=== PATIENT | male | born 1990 | race Caucasian/White ===

== ENCOUNTER 2017-01-09 08:21 | Emergency (ER) | payer OTHER ==
[2017-01-09 08:31] VITALS: BP 138/82
[2017-01-09] MEDS ORDERED: Bacitracin/Neomycin/Polymyxin B Oint 0.9 GM U/D Packet TOP ONE (09:45)
[2017-01-09] MEDS ORDERED: Diphtheria,Pertussis(Acell),Tetanus Vaccine 0.5 ML SDV IM ONE (10:14)
--- NOTE | 2017-01-09 10:20 | EDM.PDOC ---
ED HPI GENERAL MEDICAL PROBLEM - General Chief Complaint: Upper Extremity Injury/Pain Stated Complaint: left pointer finger crushed Time Seen by Provider: 01/09/17 08:45 Source of Information: Reports: Patient History Limitations: Reports: No Limitations - History of Present Illness INITIAL COMMENTS - FREE TEXT/NARRATIVE: The patient presents with a crush injury and pain of left index finger distal phalynx. He reports it got caught between gears at work. He has a small abrasion just under the nail dorsally an a small abrasion ventrally. He is unable to bed the DIP joint secondary to pain. He denies other injuries or complaints. He does not recall the date of his last tetanus vaccination. Left 2-Index finger Pain Score (Numeric/FACES): 8 - Related Data Allergies Allergy/AdvReac Type Severity Reaction Status Date / Time No Known Allergies Allergy Verified 01/09/17 08:50 Home Meds: Home Meds . [No Known Home Meds] 01/09/17 [History] Past Medical History - Infectious Disease History Infectious Disease History: Reports: Chicken Pox - Past Surgical History GI Surgical History: Reports: Hernia Repair/Other, Other (See Below) Other GI Surgeries/Procedures: umbilical hernia repair Social & Family History - Tobacco Use Smoking Status *Q: Never Smoker Second Hand Smoke Exposure: No - Caffeine Use Caffeine Use: Reports: None - Recreational Drug Use Recreational Drug Use: No Review of Systems - Review of Systems Review Of Systems: See Below ED EXAM, GENERAL - Physical Exam Exam: See Below Exam Limited By: No Limitations General Appearance: Alert, WD/WN, No Apparent Distress Eye Exam: Bilateral Eye: EOMI, Normal Inspection, PERRL Ears: Normal External Exam, Normal Canal, Hearing Grossly Normal, Normal TMs Ear Exam: Bilateral Ear: Auricle Normal, Canal Normal, TM normal Nose: Normal Inspection, Normal Mucosa, No Blood Throat/Mouth: Normal Inspection, Normal Lips, Normal Teeth, Normal Gums, Normal Oropharynx Head: Atraumatic, Normocephalic Neck: Normal Inspection, Supple, Non-Tender, Full Range of Motion Respiratory/Chest: No Respiratory Distress, Lungs Clear, Normal Breath Sounds Cardiovascular: Normal Peripheral Pulses, Regular Rate, Rhythm, No Edema, No Gallop, No Murmur, No Rub Peripheral Pulses: 2+: Radial (L), Radial (R) GI/Abdominal: Normal Bowel Sounds, Soft, Non-Tender, No Organomegaly, No Distention Back Exam: Normal Inspection, Full Range of Motion. No: CVA Tenderness (L), CVA Tenderness (R), Paraspinal Tenderness, Vertebral Tenderness Extremities: Normal Inspection, Normal Range of Motion, Non-Tender, No Pedal Edema, Normal Capillary Refill Neurological: Alert, Oriented, CN II-XII Intact, Normal Cognition, Normal Gait, Normal Reflexes, No Motor/Sensory Deficits Psychiatric: Normal Affect, Normal Mood Skin Exam: Warm, Dry, Intact, Normal Color, No Rash Lymphatic: No Adenopathy Course - Vital Signs Last Recorded V/S: Last Vital Signs Temp 36.8 C 01/09/17 08:24 Pulse 90 01/09/17 08:24 Resp 16 01/09/17 08:24 BP 138/82 01/09/17 08:24 Pulse Ox 98 01/09/17 08:24 - Orders/Labs/Meds Orders: Active Orders 24 hr Category Date Time Status Vaccines to be Administered [RC] PER UNIT ROUTINE Care 01/09/17 10:14 Ordered Hand 2V Lt [CR] Stat Exams 01/09/17 08:34 Taken Diphth,Pertuss(Acell),Tet Vac [Adacel] Med 01/09/17 10:14 Once 0.5 ml IM .ONCE ONE Meds: Medications Discontinued Medications Generic Name Dose Route Start Last Admin Trade Name Gildardoq PRN Reason Stop Dose Admin Neomycin/Polymyxin/Bacitracin 1 each 01/09/17 09:45 01/09/17 09:53 Triple Antibiotic Oint TOP 01/09/17 09:46 1 each ONETIME ONE Administration Departure - Departure Time of Disposition: 10:26 Disposition: Home, Self-Care 01 Clinical Impression: Fracture of distal phalanx of index finger Qualifiers: Encounter type: initial encounter Fracture type: closed Fracture alignment: nondisplaced Laterality: left Qualified Code(s): S62.661A - Nondisplaced fracture of distal phalanx of left index finger, initial encounter for closed fracture Crushing injury of left index finger, initial encounter Qualifiers: Encounter type: initial encounter Qualified Code(s): S67.191A - Crushing injury of left index finger, initial encounter Abrasion of left index finger Qualifiers: Encounter type: initial encounter Qualified Code(s): S60.411A - Abrasion of left index finger, initial encounter - Discharge Information Forms: ED Department Discharge - My Orders Last 24 Hours: My Active Orders 01/09/17 08:34 Hand 2V Lt [CR] Stat 01/09/17 10:14 Vaccines to be Administered [RC] PER UNIT ROUTINE Diphth,Pertuss(Acell),Tet Vac [Adacel] 0.5 ml IM .ONCE ONE - Assessment/Plan Last 24 Hours: My Active Orders 01/09/17 08:34 Hand 2V Lt [CR] Stat 01/09/17 10:14 Vaccines to be Administered [RC] PER UNIT ROUTINE Diphth,Pertuss(Acell),Tet Vac [Adacel] 0.5 ml IM .ONCE ONE Assessment:: Nondisplaced fracture of proximal aspect of distal phalynx of left index finger. Crush injury of distal phalynx of left index finger. Mild abrasions of distal phalynx of left index finger. Plan: 1. Wound soaked in 2:1 Saline to Betadine solution. 2. Wound cleansed with Betadine and anesthetized in local pattern with 27-gauge 1/2" needle with 1% lidocaine without epinephrine to total of 5 mL. 3. Suture closure performed using 4-0 Ethilon in interrupted fashion. 4. Triple antibiotic ointment applied followed by sterile dressing and covered with Telfa and Kerlix wrap. 5. Keep dressing covered and in place for 24 hours, then may remove and shower and clean with mild soap but do not soak until sutures removed. 6. OTC ibuprofen 400-600 mg every 6 hours as needed for discomfort. 7. Excuse from work 01/09/2017, may return 01/10/2017 with 5 pound lifting restriction of right hand until sutures removed. 8. Return to clinic in 7 days for suture removal or follow up with PCP sooner if increased redness, swelling, pain, drainage, or other concerns.
== END 2017-01-09 10:55 | disposition home or self-care (01) ==
LOC: LL.ED 08:21
DX: S62.661A Nondisplaced fracture of distal phalanx of left index finger, initial encounter for closed fracture (principal); S60.411A Abrasion of left index finger, initial encounter; Z23 Encounter for immunization; Z98.890 Other specified postprocedural states; W23.0XXA Caught, crushed, jammed, or pinched between moving objects, initial encounter; Y92.69 Other specified industrial and construction area as the place of occurrence of the external cause; Y99.0 Civilian activity done for income or pay
CPT/HCPCS: 12001; 73120-LT; 90471; 90715; 99283

== ENCOUNTER 2019-10-03 09:44 | Emergency (ER) | payer BC, OTHER ==
[2019-10-03 10:05] VITALS: BP 111/75; PULSE 95
--- NOTE | 2019-10-03 10:16 | EDM.PDOC ---
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 - Related Data Allergies Allergy/AdvReac Type Severity Reaction Status Date / Time No Known Allergies Allergy Verified 01/09/17 08:50 Home Meds: Home Meds glipiZIDE [Glipizide ER] 5 mg PO BEDTIME 02/28/18 [History] metFORMIN HCl [Metformin HCl ER] 500 mg PO BID 02/28/18 [History] Past Medical History Endocrine/Metabolic History: Reports: Diabetes, Type I - Infectious Disease History Infectious Disease History: Reports: Chicken Pox - Past Surgical History HEENT Surgical History: Reports: Oral Surgery GI Surgical History: Reports: Hernia Repair/Other, Other (See Below) Other GI Surgeries/Procedures: umbilical hernia repair Social & Family History - Caffeine Use Caffeine Use: Reports: None Review of Systems - Review of Systems Review Of Systems: See Below Respiratory: Reports: No Symptoms Cardiovascular: Reports: No Symptoms GI/Abdominal: Reports: No Symptoms Musculoskeletal: Reports: Leg Pain, Joint Pain Skin: Reports: Wound ED EXAM, GENERAL - Physical Exam Exam: See Below Exam Limited By: No Limitations General Appearance: Alert, WD/WN, Moderate Distress Head: Atraumatic Neck: Supple Respiratory/Chest: Lungs Clear Cardiovascular: Regular Rate, Rhythm GI/Abdominal: Non-Tender Extremities: Other (Left mid-thigh tender Minimal swelling No ecchymosis Left lower leg with abrasion laterally below knee Knee tender with palpation No swelling or deformity Abrasion behind right knee) Neurological: Alert, Oriented Course - Vital Signs Last Recorded V/S: Last Vital Signs Temp 98.3 F 10/03/19 10:05 Pulse 95 10/03/19 10:05 Resp 16 10/03/19 10:05 BP 111/75 10/03/19 10:05 Pulse Ox 95 10/03/19 10:05 - Orders/Labs/Meds Orders: Active Orders 24 hr Category Date Time Status Femur Min 2V Lt [CR] Stat Exams 10/03/19 09:48 Taken - Re-Assessments/Exams Free Text/Narrative Re-Assessment/Exam: 10/03/19 10:17 Pt xray without acute findings Pt placed in immobilizer Departure - Departure Time of Disposition: 10:30 Disposition: Home, Self-Care 01 Clinical Impression: Contusion of leg, left Qualifiers: Encounter type: initial encounter Qualified Code(s): S80.12XA - Contusion of left lower leg, initial encounter Knee pain, left Qualifiers: Chronicity: acute Qualified Code(s): M25.562 - Pain in left knee Abrasion hip/leg Qualifiers: Encounter type: initial encounter Laterality: unspecified laterality Qualified Code(s): S80.819A - Abrasion, unspecified lower leg, initial encounter - Discharge Information *PRESCRIPTION DRUG MONITORING PROGRAM REVIEWED*: Not Applicable *COPY OF PRESCRIPTION DRUG MONITORING REPORT IN PATIENT FERNANDO: Not Applicable Instructions: Contusion, [id number], Crutch Use, Adult, [id number], Abrasion Referrals: PCP,Unknown [Primary Care Provider] - Additional Instructions: Ice as needed Wear immobilizer and use crutches Follow up in clinic in 1-2 days Elevate leg Rx Tramadol 50 mg every 6 hours for pain Sepsis Event Note - Evaluation Sepsis Screening Result: No Definite Risk - Focused Exam Vital Signs: Vital Signs Temp Temp Pulse Resp BP Pulse Ox 10/03/19 10:05 98.3 F 95 16 111/75 95 10/03/19 10:02 98.3 F 95 16 111/75 96 Date Exam was Performed: 10/03/19 Time Exam was Performed: 10:10 - My Orders Last 24 Hours: My Active Orders 10/03/19 09:48 Femur Min 2V Lt [CR] Stat - Assessment/Plan Last 24 Hours: My Active Orders 10/03/19 09:48 Femur Min 2V Lt [CR] Stat
== END 2019-10-03 11:10 | disposition home or self-care (01) ==
LOC: LL.ED 09:44
DX: S70.12XA Contusion of left thigh, initial encounter (principal); S80.212A Abrasion, left knee, initial encounter; S80.211A Abrasion, right knee, initial encounter; E10.9 Type 1 diabetes mellitus without complications; Z79.84 Long term (current) use of oral hypoglycemic drugs; W23.1XXA Caught, crushed, jammed, or pinched between stationary objects, initial encounter; Y99.0 Civilian activity done for income or pay
CPT/HCPCS: 99283

== ENCOUNTER 2020-12-06 10:13 | Inpatient (IN) | payer BC ==
--- NOTE | 2020-12-06 10:24 | EDM.PDOC ---
ED HPI GENERAL MEDICAL PROBLEM - General Chief Complaint: Diabetic Complaint Stated Complaint: Diabetic issue Time Seen by Provider: 12/06/20 10:20 Source of Information: Reports: Patient, Old Records ([facility] chart/EMR) - History of Present Illness INITIAL COMMENTS - FREE TEXT/NARRATIVE: The patient was brought to the emergency room via private automobile by his significant other for evaluation of nonspecific blurred vision associated with some anorexia and nausea with the patient not able to drink water, although he has been able to keep some sports drinks down during the last few days. He denies any specific pain or discomfort. The patient has had financial issues and has not been able to afford his insulin recently and has not had any insulin for about 6 days and previously did cut down on his former insulin regimen. He has also noted some dysuria and polyuria with no gross hematuria, colic, etc.. No recent history of abdominal pain, heartburn, emesis, diarrhea, melena, gross hematochezia, or any food intolerance, including fatty foods, etc., although some constipation secondary to his recent anorexia with last bowel movement about 3 days ago. The patient denies any chest pain/pressure, heart flutter, dizziness, orthostasis, orthopnea, diaphoresis, paresthesias, recent decreased exercise tolerance, or any other anginal-type symptoms. The patient also denies any recent fever, cough, wheezing, etc., although some nonspecific dyspnea during the last couple of days. No history of recent headaches, diplopia, change in mental status, or other change in neurological status. The patient has also run out of his Accu-Chek strips during the last week. Onset: Gradual Onset Date: 12/04/20 Duration: Getting Worse Location: Reports: Other (No pain) Quality: Reports: Same as Previous Episode Severity: Moderate Improves with: Reports: None Worsens with: Reports: None Context: Reports: Other (As above). Denies: Sick Contact, Trauma Associated Symptoms: Reports: Loss of Appetite, Nausea/Vomiting (No emesis), Shortness of Breath. 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 Denies: Allergic Rhinitis, Cataract, Glaucoma, Hard of Hearing, Impaired Vision, Macular Degeneration, Otitis Media, Retinal Detachment, Sinusitis Other HEENT History: No diabetic retinopathy. Cardiovascular History: Reports: Other (See Below). Denies: Afib, Aneurysm, Arrhythmia, Blood Clots/VTE/DVT, CAD, Cardiomyopathy, Heart Failure, Heart Murmur, High Cholesterol, Hypertension, HI, PVD, Syncope Other Cardiovascular History: The patient does not know his cholesterol status. Respiratory History: Reports: Bronchitis, Recurrent, Other (See Below). Denies: Asthma, COPD, Intubation, Difficult, Intubation, Previous, PE, Pneumonia, Recurrent, Pneumothorax, Pulmonary Fibrosis, Sleep Apnea, TB Other Respiratory History: Possible history of RSV infection with respiratory distress/apnea at about age 1. Gastrointestinal History: Reports: Fatty Liver, Gastritis, GERD, Other (See Below). Denies: Celiac Disease, Cholelithiasis, Chronic Constipation, Chronic Diarrhea, Colon Polyp, Fecal Incontinence, GI Bleed, Hepatitis, Hiatal Hernia, Inflammatory Bowel Disease, Irritable Bowel Syndrome, Jaundice, Pancreatitis, PUD Other Gastrointestinal History: History of borderline GERD by medical records, which patient denies. Genitourinary History: Reports: None. Denies: Acute Renal Failure, Chronic Renal Insuffiency, Diabetic Nephropathy, Renal Calculus, Retention, Urinary, STD, Urinary Incontinence, UTI, Recurrent Musculoskeletal History: Reports: Fracture, Other (See Below). Denies: Amputation, Arthritis, Back Pain, Chronic, Gout, Neck Pain, Chronic, Osteoarthritis, RA, SLE Other Musculoskeletal History: Proximal fracture of the distal phalanx of digit #2 of the left hand on 01/09/2017. Neurological History: Denies: Cerebral Aneurysms, Concussion, Headaches, Chronic, Head Trauma, Migraines, MS, Neuropathy, Diabetic, Neuropathy, Peripheral, Parkinson's, Seizure, TIA, Vertigo Psychiatric History: Reports: None. Denies: Abuse, Victim of, ADD, ADHD, Addiction, Anxiety, Depression, Psych Hospitalization(s), PTSD, Suicide Attempt, Suicidal Ideation Endocrine/Metabolic History: Reports: Diabetes, Type I, IDDM, Other (See Below). 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 Hematologic History: Denies: Anemia, Blood Transfusion(s), Iron Deficiency Immunologic History: Denies: None, AIDS, HIV, SLE Oncologic (Cancer) History: Reports: None. Denies: Basal Cell Carcinoma, Colon, Hodgkin's Lymphoma, Leukemia, Lymphoma, Malignant Melanoma, Non-Hodgkin's Lymphoma, Ovarian, Prostate, Squamous Cell Carcinoma Dermatologic History: Reports: None. Denies: Eczema, Melanoma - Infectious Disease History Infectious Disease History: Reports: Chicken Pox, RSV (At age 1 as above?). Denies: C-Difficile, Measles, Meningitis, Mononucleosis, MRSA, Mumps, Novel Coronavirus, Pertussis (Whooping Cough), Rheumatic Fever, Rubella, Scarlet Fever, Shingles, TB, VRE - Past Surgical History Head Surgeries/Procedures: Reports: None HEENT Surgical History: Reports: Oral Surgery, Other (See Below). Denies: Adenoidectomy, Cataract Surgery, Eye Surgery, Laser Surgery, LASIK, Myringotomy w Tube(s), Naso-Sinus Surgery Other HEENT Surgeries/Procedures: [place] teeth extraction x4 in his 20s. Cardiovascular Surgical History: Reports: None. Denies: Varicose Respiratory Surgical History: Reports: None. Denies: Thoracentesis GI Surgical History: Reports: Hernia Repair/Other, Other (See Below). Denies: Appendectomy, Cholecystectomy, Colonoscopy, EGD, Hernia, Abdominal, Hernia, Inguinal, Polypectomy Other GI Surgeries/Procedures: Umbilical hernia repair on 01/30/2011. Male Surgical History: Reports: Circumcision, Other (See Below). Denies: Vasectomy Other Male Surgeries/Procedures: Circumcision as an infant. Endocrine Surgical History: Reports: None. Denies: Thyroid Biopsy Neurological Surgical History: Reports: None. Denies: C-Spine, Discectomy, Laminectomy, Lumbar Spine, Sacral Spine, Spinal Fusion, Thoracic Spine, Vertebroplasty Musculoskeletal Surgical History: Reports: None. Denies: Arthroscopic Procedure, Carpal Tunnel, Ganglion Cyst, Joint Replacement, ORIF, Shoulder Surgery Oncologic Surgical History: Reports: None Dermatological Surgical History: Reports: None - Past Imaging History Past Imaging History: Reports: CAT Scan (Abdomen and pelvis 03/09/2018.), MRI (Left thigh on 10/10/2019.), Ultrasound (Abdomen 11/09/17.), Upper GI X-Ray/Series Social & Family History - Family History HEENT: Reports: None. Denies: Glaucoma, Macular Degeneration, Retinal Detachment Cardiac: Reports: Arrhythmia, Heart Murmur, Other (See Below). Denies: Afib, Aneurysm, Blood Clots/VTE/DVT, Bypass, CAD, Heart Failure, High Cholesterol, Hypertension, HI, Pacemaker, PVD/COD, Stent, Syncope Other Cardiac Family History: Maternal grandmother with heart valve replacement. Father with unknown type of arrhythmia. Respiratory: Reports: Sleep Apnea, Other (See Below). Denies: Asthma, COPD, PE, Pneumothorax Other Respiratory Family Hisory: Father with sleep apnea secondary to obesity. GI: Reports: None. Denies: Celiac Disease, Cholelithiasis, Colon Polyps, GERD, GI bleed, Inflammatory Bowel Disease, Irritable Bowel Syndrome : Reports: None. Denies: Renal Calculus, UTI, Recurrent OBGYN: Reports: None. Denies: Endometriosis, Recurrent Spontaneous Musculoskeletal: Reports: None. Denies: Arthritis, Gout, Osteoarthritis, RA, SLE Neurological: Reports: None. Denies: Alzheimers Disease, CVA, Migraines, MS, Neuropathy, Peripheral, Parkinson's, Seizure, TIA Psychiatric: Reports: None. Denies: Abuse, Victim of, ADD, ADHD, Anxiety, Depression, Psych Hospitalization(s), Psychosis, PTSD, Suicide Attempt Endocrine/Metabolic: Reports: Diabetes, type II, Obesity/MBI 30+, Other (See Below). Denies: Diabetes, Gestational, Diabetes, Type I, Diabetes Mellitus, Type 3c, IDDM Other Endocrine/Metabolic Family History: Father with AODM and obesity. Paternal grandmother with AODM. Hematologic: Reports: None. Denies: Anemia, SLE Immunologic: Reports: None. Denies: AIDS, HIV, SLE Dermatologic: Reports: None. Denies: Eczema, Psoriasis Oncologic: Reports: Other (See Below) Other Oncologic Family History: Maternal grandparents with unknown type of fatal cancer in their 80s. - Caffeine Use Caffeine Use: Reports: None Other Caffeine Use: 1-2 daily ED ROS GENERAL - Review of Systems Review Of Systems: Comprehensive ROS is negative, except as noted in HPI. ED EXAM GENERAL NO PERIP PULSE - Physical Exam Exam: See Below Exam Limited By: No Limitations General Appearance: Alert, WD/WN, No Apparent Distress, Anxious (Moderate) Eye Exam: Bilateral Eye: EOMI, Normal Fundi (No vertigo or nystagmus), PERRL Ears: Normal External Exam, Normal Canal, Hearing Grossly Normal, Normal TMs Nose: Normal Inspection, Normal Mucosa, No Blood Throat/Mouth: Normal Lips, Normal Teeth, Normal Gums, No Airway Compromise. No: Normal Oropharynx (Dry oral mucosa. +1 erythema in the posterior pharynx with no pinpoint of peritonsillar abscess), Normal Voice, Dysphagia, Inflammation, Perioral Cyanosis Head: Atraumatic, Normocephalic. No: Facial Swelling, Facial Tenderness, Sinus Tenderness Neck: Normal Inspection, Supple, Non-Tender, Full Range of Motion. No: Carotid Bruit, Lymphadenopathy (L), Lymphadenopathy (R), Thyromegaly Respiratory/Chest: No Respiratory Distress, Lungs Clear, Normal Breath Sounds, No Accessory Muscle Use, Chest Non-Tender. No: Pleural Rub, Retractions Cardiovascular: Normal Peripheral Pulses, No Edema, No Gallop, No JVD, No Murmur, No Rub, Tachycardia (Regular rhythm). No: Gallop/S3, Gallop/S4, Friction Rub GI/Abdominal: Normal Bowel Sounds, Soft, Non-Tender, No Organomegaly, No Distention, No Abnormal Bruit, No Mass, Pelvis Stable. No: Guarding (Male) Exam: Deferred Rectal (Males) Exam: Deferred Back Exam: Normal Inspection, Full Range of Motion. No: CVA Tenderness (L), CVA Tenderness (R), Muscle Spasm Extremities: Normal Inspection, Normal Range of Motion, Non-Tender, No Pedal Edema, Normal Capillary Refill. No: Tan's Sign Neurological: Alert, Oriented, CN II-XII Intact, Normal Cognition, Normal Gait, Normal Reflexes (Negative Babinski's), No Motor/Sensory Deficits Psychiatric: Anxious (Moderate), Depressed Mood (Mild) Skin Exam: Warm, Dry, Intact, Normal Color, No Rash, Wound/Incision (Slowly improving by history 1 cm second-degree burn over the mid radial aspect of the right forearm with no local signs of infection), Other (Turgor good). No: Diaphoretic, Jaundice, Tattoo(s) Lymphatic: No Adenopathy #1 Interpretation EKG Date: 12/06/20 Time: 10:54 Rhythm: NSR Rate (Beats/Min): 93 [place]: Normal (Neutral) P-Wave: Present QRS: Normal (0.09 seconds) ST-T: Normal (T wave inversion in lead V1 with noisy baseline) QT: Normal VA/PQ Interval: 0.13 seconds representing a short VA interval with no delta waves noted. Comparison: NA - No Prior EKG EKG Interpretation Comments: 1. No acute ischemic changes 2. Short VA interval Course - Vital Signs Last Recorded V/S: Last Vital Signs Temp 36.2 C 12/06/20 10:23 Pulse 102 H 12/06/20 12:29 Resp 24 H 12/06/20 12:29 BP 138/74 12/06/20 12:29 Pulse Ox 100 12/06/20 12:29 Vital Signs - 24 hr 12/06/20 12/06/20 12/06/20 10:18 10:23 10:28 Temperature [ 36.7 C 36.2 C Temporal] Pulse, 109 H 98 Peripheral [ Pulse Oximetry] Respiratory 20 Rate Blood Pressure 126/67 [Left Arm] Blood Pressure 134/67 [Right Upper Arm] O2 Sat by Pulse 100 100 Oximetry 12/06/20 12/06/20 12/06/20 10:32 10:47 11:02 Temperature [ Temporal] Pulse, 94 101 H 109 H Peripheral [ Pulse Oximetry] Respiratory 22 H 23 H Rate Blood Pressure [Left Arm] Blood Pressure 111/70 137/62 132/82 [Right Upper Arm] O2 Sat by Pulse 100 100 100 Oximetry 12/06/20 12/06/20 12/06/20 11:17 11:32 12:00 Temperature [ Temporal] Pulse, 101 H 104 H 102 H Peripheral [ Pulse Oximetry] Respiratory 22 H 25 H 24 H Rate Blood Pressure [Left Arm] Blood Pressure 128/89 118/85 127/74 [Right Upper Arm] O2 Sat by Pulse 100 100 100 Oximetry 12/06/20 12:10 Temperature [ Temporal] Pulse, 101 H Peripheral [ Pulse Oximetry] Respiratory 23 H Rate Blood Pressure [Left Arm] Blood Pressure [Right Upper Arm] O2 Sat by Pulse 100 Oximetry - Orders/Labs/Meds Orders: Active Orders 24 hr Category Date Time Status Cardiac Monitoring [RC] . DIRECTED Care 12/06/20 10:24 Active EKG Documentation Completion [RC] ASDIRECTED Care 12/06/20 10:24 Active Oxygen Therapy, ED [RC] PRN Care 12/06/20 10:24 Active Peripheral IV Care [RC] . DIRECTED Care 12/06/20 10:24 Active Peripheral IV Care [RC] . DIRECTED Care 12/06/20 11:26 Active Pulse Oximetry [RC] CONTINUOUS Care 12/06/20 10:24 Active Up With Assistance [RC] PFP Care 12/06/20 10:24 Active Vital Signs [RC] PFP Care 12/06/20 10:24 Active Nothing per Oral Now Diet [DIET] Diet 12/06/20 Breakfast Active Abdomen Series w Chest 1V [CR] Routine Exams 12/06/20 10:28 Taken CORONAVIRUS COVID-19 DARIUSZ [MOLEC] Stat Lab 12/06/20 11:00 Received CULTURE BLOOD [BC] Stat Lab 12/06/20 12:00 Received CULTURE BLOOD [BC] Stat Lab 12/06/20 12:10 Received CULTURE STREP A CONFIRMATION [RM] Stat Lab 12/06/20 10:30 Results CULTURE URINE [RM] Routine Lab 12/06/20 10:55 Received STREP SCRN A RAPID W CULT CONF [RM] Stat Lab 12/06/20 10:30 Results Dextrose 50% in Water Med 12/06/20 11:26 Active 50 ml IV ASDIRECTED PRN Glucagon,Human Recombinant [GlucaGen] Med 12/06/20 11:26 Active 1 mg IM ASDIRECTED PRN Insulin Regular, Human [HumuLIN R] 100 unit Med 12/06/20 11:30 Active Sodium Chloride 0.9% [Normal Saline] 99 ml IV TITRATE Sodium Chloride 0.9% [Saline Flush] Med 12/06/20 10:24 Active 10 ml FLUSH ASDIRECTED PRN Sodium Chloride 0.9% [Saline Flush] Med 12/06/20 11:26 Active 10 ml FLUSH ASDIRECTED PRN Blood Culture x2 Reflex Set [OM.PC] Urgent Oth 12/06/20 11:46 Ordered Isolation [COMM] Routine Oth 12/06/20 10:27 Active Obtain Past Medical Record [OM.PC] Urgent Oth 12/06/20 10:24 Active Peripheral IV Insertion Adult [OM.PC] Stat Oth 12/06/20 10:24 Ordered Peripheral IV Insertion Adult [OM.PC] Stat Ot 12/06/20 11:26 Ordered Resuscitation Status Stat Resus Stat 12/06/20 10:24 Ordered EKG 12 Lead [EK] Stat Ther 12/06/20 10:24 Ordered Medication Orders Dextrose/Water (50% Dextrose In Water 50 Ml Syringe) 50 ml IV ASDIRECTED PRN PRN Reason: Hypoglycemia Glucagon (Glucagon,Human Recombinant 1 Mg Vial) 1 mg IM ASDIRECTED PRN PRN Reason: Hypoglycemia Insulin Human Regular 100 unit (/ Sodium Chloride) 100 mls @ 8.029 mls/hr IV TITRATE RAMIRO; Protocol Last Admin: 12/06/20 12:06 Dose: 0.1 units/kg/hr, 8.029 mls/hr Documented by: KHOA Cosigned by: LEO Lactated Ringer's (Ringers, Lactated) 1,000 mls @ 999 mls/hr IV .BOLUS ONE Stop: 12/06/20 13:21 Last Admin: 12/06/20 12:25 Dose: 999 mls/hr Documented by: KHOA Sodium Chloride (Sodium Chloride 0.9% 10 Ml Syringe) 10 ml FLUSH ASDIRECTED PRN PRN Reason: Keep Vein Open Last Admin: 12/06/20 11:32 Dose: 10 ml Documented by: Admin: 12/06/20 10:50 Dose: 10 ml Documented by: KHOA Sodium Chloride (Sodium Chloride 0.9% 10 Ml Syringe) 10 ml FLUSH ASDIRECTED PRN PRN Reason: Keep Vein Open Labs: Laboratory Tests 12/06/20 12/06/20 12/06/20 Range/Units 10:17 10:40 10:40 WBC 16.9 H (4.0-10.2) K/uL RBC 6.03 H (4.33-5.41) M/uL Hgb 17.7 H D (13.1-16.8) g/dL Hct 47.8 (39.0-49.0) % MCV 79.3 L (84.0-98.0) fL MCH 29.4 (28.2-33.3) pg MCHC 37.0 H (31.7-36.0) g/dL RDW 13.7 (11.2-14.1) % Plt Count 341 D (150-350) K/uL Neut % (Auto) 89.6 H (45.0-80.0) % Lymph % (Auto) 6.8 L (10.0-50.0) % [place] % (Auto) 3.3 (2.0-14.0) % Eos % (Auto) 0.1 (0.0-5.0) % Baso % (Auto) 0.2 (0.0-2.0) % Neut # (Auto) 15.10 H (1.40-7.00) K/uL Lymph # (Auto) 1.14 (0.50-3.50) K/uL [place] # (Auto) 0.56 (0.00-1.00) K/uL Eos # (Auto) 0.01 (0.00-0.50) K/uL Baso # (Auto) 0.04 (0.00-0.20) K/uL PT 9.4 L (9.5-12.0) SEC INR 0.9 APTT 26.4 (24.5-32.8) SEC D-Dimer, Quantitative (0-400) ng/mL Sodium (136-145) mmol/L Potassium (3.5-5.1) mmol/L Chloride (98-107) mmol/L Carbon Dioxide (21.0-32.0) mmol/L BUN (7-18) mg/dL Creatinine (0.51-1.17) mg/dL Est Cr Clr Drug Dosing Estimated GFR (MDRD) mL/min Glucose (70-99) mg/dL POC Glucose 452 H* (70-99) mg/dL Hemoglobin A1c (4.3-5.7) % Lactic Acid (0.4-2.0) mmol/L Uric Acid (2.6-7.2) mg/dL Calcium (8.5-10.1) mg/dL Phosphorus (2.6-4.7) mg/dL Magnesium (1.8-2.4) mg/dL Total Bilirubin (0.2-1.0) mg/dL AST (15-37) U/L ALT (12-78) U/L Alkaline Phosphatase (46-116) IU/L Creatine Kinase (26-308) U/L Creatine Kinase Index (0.0-2.5) % CK-MB (CK-2) (0.00-3.60) ng/mL Troponin I (0.000-0.056) ng/mL NT-Pro-B Natriuret Pep (0-125) pg/mL Total Protein (6.4-8.2) g/dL Albumin (3.4-5.0) g/dL Amylase (25-115) U/L Lipase (73-393) U/L TSH, Ultra Sensitive (0.358-3.740) mIU/mL Specimen Type Urine Color Urine Appearance Urine pH (5.0-9.0) Ur Specific [place] (1.005-1.030) Urine Protein (NEGATIVE) mg/dL Urine Glucose (UA) (NEGATIVE) mg/dL Urine Ketones (NEGATIVE) mg/dL Urine Occult Blood (NEGATIVE) Urine Nitrite (NEGATIVE) Urine Bilirubin (NEGATIVE) Urine Urobilinogen (0.2-1.0) E.U./dL Ur Leukocyte Esterase (NEGATIVE) Urine RBC /HPF Urine WBC /HPF Ur Epithelial Cells /LPF Urine Bacteria (NONE TO FEW) /HPF Granular Casts (Auto) Urine Opiates Screen (NEGATIVE) Ur Buprenorphine Scrn (NEGATIVE) Ur Oxycodone Screen (NEGATIVE) Ur EDDP (Meth Metab) (NEGATIVE) Ur Barbiturates Screen (NEGATIVE) Ur Tricyclics Screen (NEGATIVE) Ur Amphetamine Screen (NEGATIVE) U Methamphetamines Scrn (NEGATIVE) Urine MDMA Screen (NEGATIVE) U Benzodiazepines Scrn (NEGATIVE) U Cocaine Metab Screen (NEGATIVE) U Marijuana (THC) Screen (NEGATIVE) Ethyl Alcohol (0.000-0.080) g/dL Ketones 12/06/20 12/06/20 12/06/20 Range/Units 10:40 10:40 10:40 WBC (4.0-10.2) K/uL RBC (4.33-5.41) M/uL Hgb (13.1-16.8) g/dL Hct (39.0-49.0) % MCV (84.0-98.0) fL MCH (28.2-33.3) pg MCHC (31.7-36.0) g/dL RDW (11.2-14.1) % Plt Count (150-350) K/uL Neut % (Auto) (45.0-80.0) % Lymph % (Auto) (10.0-50.0) % [place] % (Auto) (2.0-14.0) % Eos % (Auto) (0.0-5.0) % Baso % (Auto) (0.0-2.0) % Neut # (Auto) (1.40-7.00) K/uL Lymph # (Auto) (0.50-3.50) K/uL [place] # (Auto) (0.00-1.00) K/uL Eos # (Auto) (0.00-0.50) K/uL Baso # (Auto) (0.00-0.20) K/uL PT (9.5-12.0) SEC INR APTT (24.5-32.8) SEC D-Dimer, Quantitative < 100 (0-400) ng/mL Sodium 130 L D (136-145) mmol/L Potassium 4.6 (3.5-5.1) mmol/L Chloride 95 L (98-107) mmol/L Carbon Dioxide 6.4 L* D (21.0-32.0) mmol/L BUN 14 (7-18) mg/dL Creatinine 0.91 (0.51-1.17) mg/dL Est Cr Clr Drug Dosing TNP Estimated GFR (MDRD) > 60 mL/min Glucose 494 H* (70-99) mg/dL POC Glucose (70-99) mg/dL Hemoglobin A1c (4.3-5.7) % Lactic Acid 1.5 (0.4-2.0) mmol/L Uric Acid 8.1 H (2.6-7.2) mg/dL Calcium 8.5 (8.5-10.1) mg/dL Phosphorus 4.3 (2.6-4.7) mg/dL Magnesium 2.0 (1.8-2.4) mg/dL Total Bilirubin 0.7 (0.2-1.0) mg/dL AST 10 L (15-37) U/L ALT 28 (12-78) U/L Alkaline Phosphatase 106 (46-116) IU/L Creatine Kinase 83 (26-308) U/L Creatine Kinase Index 4.7 H (0.0-2.5) % CK-MB (CK-2) 3.90 H (0.00-3.60) ng/mL Troponin I 0.000 (0.000-0.056) ng/mL NT-Pro-B Natriuret Pep 20 (0-125) pg/mL Total Protein 7.9 (6.4-8.2) g/dL Albumin 4.6 (3.4-5.0) g/dL Amylase 160 H (25-115) U/L Lipase 2578 H (73-393) U/L TSH, Ultra Sensitive 1.209 (0.358-3.740) mIU/mL Specimen Type Urine Color Urine Appearance Urine pH (5.0-9.0) Ur Specific [place] (1.005-1.030) Urine Protein (NEGATIVE) mg/dL Urine Glucose (UA) (NEGATIVE) mg/dL Urine Ketones (NEGATIVE) mg/dL Urine Occult Blood (NEGATIVE) Urine Nitrite (NEGATIVE) Urine Bilirubin (NEGATIVE) Urine Urobilinogen (0.2-1.0) E.U./dL Ur Leukocyte Esterase (NEGATIVE) Urine RBC /HPF Urine WBC /HPF Ur Epithelial Cells /LPF Urine Bacteria (NONE TO FEW) /HPF Granular Casts (Auto) Urine Opiates Screen (NEGATIVE) Ur Buprenorphine Scrn (NEGATIVE) Ur Oxycodone Screen (NEGATIVE) Ur EDDP (Meth Metab) (NEGATIVE) Ur Barbiturates Screen (NEGATIVE) Ur Tricyclics Screen (NEGATIVE) Ur Amphetamine Screen (NEGATIVE) U Methamphetamines Scrn (NEGATIVE) Urine MDMA Screen (NEGATIVE) U Benzodiazepines Scrn (NEGATIVE) U Cocaine Metab Screen (NEGATIVE) U Marijuana (THC) Screen (NEGATIVE) Ethyl Alcohol < 0.100 H (0.000-0.080) g/dL Ketones 12/06/20 12/06/20 12/06/20 Range/Units 10:40 10:40 10:55 WBC (4.0-10.2) K/uL RBC (4.33-5.41) M/uL Hgb (13.1-16.8) g/dL Hct (39.0-49.0) % MCV (84.0-98.0) fL MCH (28.2-33.3) pg MCHC (31.7-36.0) g/dL RDW (11.2-14.1) % Plt Count (150-350) K/uL Neut % (Auto) (45.0-80.0) % Lymph % (Auto) (10.0-50.0) % [place] % (Auto) (2.0-14.0) % Eos % (Auto) (0.0-5.0) % Baso % (Auto) (0.0-2.0) % Neut # (Auto) (1.40-7.00) K/uL Lymph # (Auto) (0.50-3.50) K/uL [place] # (Auto) (0.00-1.00) K/uL Eos # (Auto) (0.00-0.50) K/uL Baso # (Auto) (0.00-0.20) K/uL PT (9.5-12.0) SEC INR APTT (24.5-32.8) SEC D-Dimer, Quantitative (0-400) ng/mL Sodium (136-145) mmol/L Potassium (3.5-5.1) mmol/L Chloride (98-107) mmol/L Carbon Dioxide (21.0-32.0) mmol/L BUN (7-18) mg/dL Creatinine (0.51-1.17) mg/dL Est Cr Clr Drug Dosing Estimated GFR (MDRD) mL/min Glucose (70-99) mg/dL POC Glucose (70-99) mg/dL Hemoglobin A1c 12.5 H (4.3-5.7) % Lactic Acid (0.4-2.0) mmol/L Uric Acid (2.6-7.2) mg/dL Calcium (8.5-10.1) mg/dL Phosphorus (2.6-4.7) mg/dL Magnesium (1.8-2.4) mg/dL Total Bilirubin (0.2-1.0) mg/dL AST (15-37) U/L ALT (12-78) U/L Alkaline Phosphatase (46-116) IU/L Creatine Kinase (26-308) U/L Creatine Kinase Index (0.0-2.5) % CK-MB (CK-2) (0.00-3.60) ng/mL Troponin I (0.000-0.056) ng/mL NT-Pro-B Natriuret Pep (0-125) pg/mL Total Protein (6.4-8.2) g/dL Albumin (3.4-5.0) g/dL Amylase (25-115) U/L Lipase (73-393) U/L TSH, Ultra Sensitive (0.358-3.740) mIU/mL Specimen Type Urinvoid Urine Color Yellow Urine Appearance Slightly cloudy Urine pH 5.0 (5.0-9.0) Ur Specific [place] 1.025 (1.005-1.030) Urine Protein 100 H (NEGATIVE) mg/dL Urine Glucose (UA) 500 H (NEGATIVE) mg/dL Urine Ketones >=160 H (NEGATIVE) mg/dL Urine Occult Blood Small H (NEGATIVE) Urine Nitrite Negative (NEGATIVE) Urine Bilirubin Small H (NEGATIVE) Urine Urobilinogen 0.2 (0.2-1.0) E.U./dL Ur Leukocyte Esterase Negative (NEGATIVE) Urine RBC 0-5 /HPF Urine WBC 0-5 /HPF Ur Epithelial Cells Few /LPF Urine Bacteria Few (NONE TO FEW) /HPF Granular Casts (Auto) Few Urine Opiates Screen (NEGATIVE) Ur Buprenorphine Scrn (NEGATIVE) Ur Oxycodone Screen (NEGATIVE) Ur EDDP (Meth Metab) (NEGATIVE) Ur Barbiturates Screen (NEGATIVE) Ur Tricyclics Screen (NEGATIVE) Ur Amphetamine Screen (NEGATIVE) U Methamphetamines Scrn (NEGATIVE) Urine MDMA Screen (NEGATIVE) U Benzodiazepines Scrn (NEGATIVE) U Cocaine Metab Screen (NEGATIVE) U Marijuana (THC) Screen (NEGATIVE) Ethyl Alcohol (0.000-0.080) g/dL Ketones Moderate 12/06/20 Range/Units 10:55 WBC (4.0-10.2) K/uL RBC (4.33-5.41) M/uL Hgb (13.1-16.8) g/dL Hct (39.0-49.0) % MCV (84.0-98.0) fL MCH (28.2-33.3) pg MCHC (31.7-36.0) g/dL RDW (11.2-14.1) % Plt Count (150-350) K/uL Neut % (Auto) (45.0-80.0) % Lymph % (Auto) (10.0-50.0) % [place] % (Auto) (2.0-14.0) % Eos % (Auto) (0.0-5.0) % Baso % (Auto) (0.0-2.0) % Neut # (Auto) (1.40-7.00) K/uL Lymph # (Auto) (0.50-3.50) K/uL [place] # (Auto) (0.00-1.00) K/uL Eos # (Auto) (0.00-0.50) K/uL Baso # (Auto) (0.00-0.20) K/uL PT (9.5-12.0) SEC INR APTT (24.5-32.8) SEC D-Dimer, Quantitative (0-400) ng/mL Sodium (136-145) mmol/L Potassium (3.5-5.1) mmol/L Chloride (98-107) mmol/L Carbon Dioxide (21.0-32.0) mmol/L BUN (7-18) mg/dL Creatinine (0.51-1.17) mg/dL Est Cr Clr Drug Dosing Estimated GFR (MDRD) mL/min Glucose (70-99) mg/dL POC Glucose (70-99) mg/dL Hemoglobin A1c (4.3-5.7) % Lactic Acid (0.4-2.0) mmol/L Uric Acid (2.6-7.2) mg/dL Calcium (8.5-10.1) mg/dL Phosphorus (2.6-4.7) mg/dL Magnesium (1.8-2.4) mg/dL Total Bilirubin (0.2-1.0) mg/dL AST (15-37) U/L ALT (12-78) U/L Alkaline Phosphatase (46-116) IU/L Creatine Kinase (26-308) U/L Creatine Kinase Index (0.0-2.5) % CK-MB (CK-2) (0.00-3.60) ng/mL Troponin I (0.000-0.056) ng/mL NT-Pro-B Natriuret Pep (0-125) pg/mL Total Protein (6.4-8.2) g/dL Albumin (3.4-5.0) g/dL Amylase (25-115) U/L Lipase (73-393) U/L TSH, Ultra Sensitive (0.358-3.740) mIU/mL Specimen Type Urine Color Urine Appearance Urine pH (5.0-9.0) Ur Specific [place] (1.005-1.030) Urine Protein (NEGATIVE) mg/dL Urine Glucose (UA) (NEGATIVE) mg/dL Urine Ketones (NEGATIVE) mg/dL Urine Occult Blood (NEGATIVE) Urine Nitrite (NEGATIVE) Urine Bilirubin (NEGATIVE) Urine Urobilinogen (0.2-1.0) E.U./dL Ur Leukocyte Esterase (NEGATIVE) Urine RBC /HPF Urine WBC /HPF Ur Epithelial Cells /LPF Urine Bacteria (NONE TO FEW) /HPF Granular Casts (Auto) Urine Opiates Screen Negative (NEGATIVE) Ur Buprenorphine Scrn Negative (NEGATIVE) Ur Oxycodone Screen Negative (NEGATIVE) Ur EDDP (Meth Metab) Negative (NEGATIVE) Ur Barbiturates Screen Negative (NEGATIVE) Ur Tricyclics Screen Negative (NEGATIVE) Ur Amphetamine Screen Negative (NEGATIVE) U Methamphetamines Scrn Negative (NEGATIVE) Urine MDMA Screen Negative (NEGATIVE) U Benzodiazepines Scrn Negative (NEGATIVE) U Cocaine Metab Screen Negative (NEGATIVE) U Marijuana (THC) Screen Negative (NEGATIVE) Ethyl Alcohol (0.000-0.080) g/dL Ketones Urine specimen set up for culture and sensitivity Blood cultures x2 were collected Microbiology 12/06/20 10:30 Group A Streptococcus Rapid Screen - Final Throat NEGATIVE STREP A SCREEN REFERENCE RANGE: NEGATIVE 12/06/20 10:30 Influenza Type A Antigen Screen - Final Nasal, Unspecified NEGATIVE INFLUENZA A VIRUS AG REFERENCE RANGE: NEGATIVE Influenza Type B Antigen Screen - Final NEGATIVE INFLUENZA B VIRUS AG REFERENCE RANGE: NEGATIVE Meds: Medications Generic Name Dose Route Start Last Admin Trade Name Freq PRN Reason Stop Dose Admin Dextrose/Water 50 ml 12/06/20 11:26 50% Dextrose In Water 50 Ml Syringe IV ASDIRECTED PRN Hypoglycemia Glucagon 1 mg 12/06/20 11:26 Glucagon,Human Recombinant 1 Mg Vial IM ASDIRECTED PRN Hypoglycemia Insulin Human Regular 100 unit 100 mls @ 8.029 mls/hr 12/06/20 11:30 12/06/20 12:06 / Sodium Chloride IV 0.1 units/kg/hr TITRATE RAMIRO 8.029 mls/hr Administration Protocol 0.1 UNITS/KG/HR Lactated Ringer's 1,000 mls @ 999 mls/hr 12/06/20 12:21 12/06/20 12:25 Ringers, Lactated IV 12/06/20 13:21 999 mls/hr .BOLUS ONE Administration Sodium Chloride 10 ml 12/06/20 10:24 12/06/20 11:32 Sodium Chloride 0.9% 10 Ml Syringe FLUSH 10 ml ASDIRECTED PRN Administration Keep Vein Open Sodium Chloride 10 ml 12/06/20 11:26 Sodium Chloride 0.9% 10 Ml Syringe FLUSH ASDIRECTED PRN Keep Vein Open Discontinued Medications Generic Name Dose Route Start Last Admin Trade Name Freq PRN Reason Stop Dose Admin Ceftriaxone Sodium 2 gm 12/06/20 11:24 12/06/20 11:31 Ceftriaxone 2 Gm Vial IVPUSH 12/06/20 11:25 2 gm ONETIME ONE Administration Famotidine 40 mg 12/06/20 11:29 12/06/20 11:36 Famotidine 20 Mg/2 Ml Sdv IVPUSH 12/06/20 11:30 40 mg ONETIME ONE Administration Lactated Ringer's 1,000 mls @ 999 mls/hr 12/06/20 10:29 12/06/20 10:50 Ringers, Lactated IV 12/06/20 11:29 999 mls/hr .BOLUS ONE Administration Insulin Human Regular 10 unit 12/06/20 11:26 12/06/20 11:38 Insulin Regular, Human 100 Units/Ml 3 Ml Vial IV 12/06/20 11:27 10 unit ONETIME ONE Administration Pantoprazole Sodium 40 mg 12/06/20 11:29 12/06/20 11:37 Pantoprazole 40 Mg Vial IVPUSH 12/06/20 11:30 40 mg ONETIME ONE Administration - Radiology Interpretation Free Text/Narrative:: pvc monitor shows sinus tachycardia with heart rate in the 100s to 110s with no ectopy or arrhythmia. Acute abdominal x-ray shows moderate pulmonary obstructive disease with no pneumothorax, pulmonary infiltrates, cardiomegaly, CHF, fluid levels, free air, ileus, or obstruction. Moderate diffuse stool with nonspecific bowel gaseous pattern including moderate colonic prominence at the splenic flexure. Departure - Departure Time of Disposition: 12:30 Disposition: Admitted As Inpatient 64 Condition: Fair Clinical Impression: IDDM (insulin dependent diabetes mellitus), Dehydration, Peptic reflux disease, Hyperuricemia, Mixed anxiety depressive disorder, Hyponatremia, Elevated CK-MB level, Shortened VA interval, Ketoacidosis Pancreatitis Qualifiers: Chronicity: acute Pancreatitis type: other Acute pancreatitis complication: unspecified Qualified Code(s): K85.80 - Other acute pancreatitis without necrosis or infection - Discharge Information *PRESCRIPTION DRUG MONITORING PROGRAM REVIEWED*: Not Applicable *COPY OF PRESCRIPTION DRUG MONITORING REPORT IN PATIENT FERNANDO: Not Applicable Sepsis Event Note (ED) - Evaluation Sepsis Screening Result: No Definite Risk - Focused Exam Vital Signs: Vital Signs Temp Pulse Resp BP BP Pulse Ox 12/06/20 12:10 101 H 23 H 100 12/06/20 12:00 102 H 24 H 127/74 100 12/06/20 11:32 104 H 25 H 118/85 100 12/06/20 11:17 101 H 22 H 128/89 100 12/06/20 11:02 109 H 23 H 132/82 100 12/06/20 10:47 101 H 22 H 137/62 100 12/06/20 10:32 94 111/70 100 12/06/20 10:28 98 134/67 100 12/06/20 10:23 36.2 C 12/06/20 10:18 36.7 C 109 H 20 126/67 100 - Problem List & Annotations (1) IDDM (insulin dependent diabetes mellitus) SNOMED Code(s): 39079453 Code(s): YDH5157 - Status: Acute Priority: High Current Visit: Yes Onset Date: 12/06/20 Annotation/Comment:: Decompensated IDDM secondary to patient's financial problems and noncompliance with his home Accu-Cheks, i nsulin, etc. as above. Aggressive diabetic management was initiated in the emergency room, including initial 10 unit IV bolus of Humulin regular insulin with subsequent initiation of Humulin regular infusional as per protocol. Continue to observe closely throughout this hospitalization. Patient counseled on the importance of medication compliance with social science instructor to get with the patient concerning personal financial representative for his insulin, insulin supplies, etc.. In spite of patient's UTI symptoms as above initial UA is negative with urine specimen set up for culture and sensitivity. Note to moderate leukocytosis with blood cultures x2 collected and high-dose IV Rocephin initiated in the emergency room thereafter. Glycosylated hemoglobin significantly elevated at 12.5%. Lactic acid level is normal. Note moderate serum ketones with only mild ketonuria. Consider ABGs depending on his clinical course, although sodium bicarbonate has recently lost fever and treatment of ketoacidosis. [employer] work excuse was completed with additional work excuse at time of discharge. (2) Dehydration SNOMED Code(s): 37651509 Code(s): E86.0 - DEHYDRATION Status: Acute Priority: High Current Visit: Yes Onset Date: 12/06/20 Annotation/Comment:: Moderate dehydration with aggressive initial treatment in the emergency room, including 1 L IV bolus of lactated Ringer's upon patient's arrival to this facility. Continue IV hydration during this hospitalization as per Humulin regular infusion protocol. (3) Hyperuricemia SNOMED Code(s): 60662128 Code(s): E79.0 - HYPERURICEMIA W/O SIGNS OF INFLAM ARTHRIT AND TOPHACEOUS DIS Status: Acute Priority: Medium Current Visit: Yes Onset Date: 12/06/20 Annotation/Comment:: No previous history of gout, etc. His arthritis is otherwise stable. Observe for now. Aggressive IV hydration as above. (4) Mixed anxiety depressive disorder SNOMED Code(s): 278446155 Code(s): F41.8 - OTHER SPECIFIED ANXIETY DISORDERS Status: Acute Priority: Medium Current Visit: Yes Onset Date: 12/06/20 Annotation/Comment:: Borderline mixed anxiety depression disorder based on today's exam, however this may be due to his current illness. Continue to observe closely for now with no medical therapy to this point. (5) Pancreatitis SNOMED Code(s): 31330347 Code(s): K85.90 - ACUTE PANCREATITIS WITHOUT NECROSIS OR INFECTION, UNSP Status: Acute Priority: High Current Visit: Yes Onset Date: 12/06/20 Annotation/Comment:: Note elevated lipase and amylase. With absolutely no abdominal pain to this point. High-dose IV Pepcid and IV Protonix given in the emergency room the patient to be kept n.p.o. other than fluids initially. Repeat blood work in the a.m. Consider CT scan of the abdomen pelvis depending on his clinical course, however his decompensated IDDM is his initial concern at this time. Qualifiers: Chronicity: acute Pancreatitis type: other Acute pancreatitis complication: unspecified Qualified Code(s): K85.80 - Other acute pancreatitis without necrosis or infection (6) Peptic reflux disease SNOMED Code(s): 351864041 Code(s): K21.9 - GASTRO-ESOPHAGEAL REFLUX DISEASE WITHOUT ESOPHAGITIS Status: Chronic Priority: Medium Current Visit: Yes Annotation/Comment:: Patient denies. Nonproblematic to this point. IV Pepcid and IV Protonix given as above. (7) Elevated CK-MB level SNOMED Code(s): 480756459 Code(s): R74.8 - ABNORMAL LEVELS OF OTHER SERUM ENZYMES Status: Acute Priority: Medium Current Visit: Yes Onset Date: 12/06/20 Annotation/Comment:: Mildly elevated with normal troponin I and low baseline CK. No chest pain or anginal type symptoms, although some nonspecific dyspnea during the last couple days as above. Repeat EKG and cardiac enzymes in the a.m. No evidence of rhabdomyolysis. Continue aggressive IV hydration as above. (8) Hyponatremia SNOMED Code(s): 67501918 Code(s): E87.1 - HYPO-OSMOLALITY AND HYPONATREMIA Status: Acute Priority: High Current Visit: Yes Onset Date: 12/06/20 Annotation/Comment:: Aggressive IV hydration as above. Consider 3% sodium chloride infusion, depending on follow-up blood work later in the day. (9) Shortened VA interval SNOMED Code(s): 12812683 Code(s): R94.31 - ABNORMAL ELECTROCARDIOGRAM [ECG] [EKG] Status: Acute Priority: Medium Current Visit: Yes Onset Date: 12/06/20 Annotation/Comment:: Nonsymptomatic. Observe for now. (10) Ketoacidosis SNOMED Code(s): 15109365 Code(s): E87.2 - ACIDOSIS Status: Acute Priority: High Current Visit: Yes Onset Date: 12/06/20 Annotation/Comment:: As above. - Problem List Review Problem List Initiated/Reviewed/Updated: Yes - My Orders Last 24 Hours: My Active Orders 12/06/20 Breakfast Nothing per Oral Now Diet [DIET] 12/06/20 10:24 Cardiac Monitoring [RC] . DIRECTED EKG Documentation Completion [RC] ASDIRECTED Oxygen Therapy, ED [RC] PRN Peripheral IV Care [RC] . DIRECTED Pulse Oximetry [RC] CONTINUOUS Up With Assistance [RC] PFP Vital Signs [RC] PFP Sodium Chloride 0.9% [Saline Flush] 10 ml FLUSH ASDIRECTED PRN Obtain Past Medical Record [OM.PC] Urgent Peripheral IV Insertion Adult [OM.PC] Stat Resuscitation Status Stat EKG 12 Lead [EK] Stat 12/06/20 10:27 Isolation [COMM] Routine 12/06/20 10:28 Abdomen Series w Chest 1V [CR] Routine 12/06/20 10:30 CULTURE STREP A CONFIRMATION [RM] Stat STREP SCRN A RAPID W CULT CONF [RM] Stat 12/06/20 10:55 CULTURE URINE [RM] Routine 12/06/20 11:00 CORONAVIRUS COVID-19 DARIUSZ [MOLEC] Stat 12/06/20 11:26 Peripheral IV Care [RC] . DIRECTED Dextrose 50% in Water 50 ml IV ASDIRECTED PRN Glucagon,Human Recombinant [GlucaGen] 1 mg IM ASDIRECTED PRN Sodium Chloride 0.9% [Saline Flush] 10 ml FLUSH ASDIRECTED PRN Peripheral IV Insertion Adult [OM.PC] Stat 12/06/20 11:30 Insulin Regular, Human [HumuLIN R] 100 unit Sodium Chloride 0.9% [Normal Saline] 99 ml IV TITRATE 12/06/20 11:46 Blood Culture x2 Reflex Set [OM.PC] Urgent 12/06/20 12:00 CULTURE BLOOD [BC] Stat 12/06/20 12:10 CULTURE BLOOD [BC] Stat - Assessment/Plan Admission H&P: Please use this note as an admission H&P Last 24 Hours: My Active Orders 12/06/20 Breakfast Nothing per Oral Now Diet [DIET] 12/06/20 10:24 Cardiac Monitoring [RC] . DIRECTED EKG Documentation Completion [RC] ASDIRECTED Oxygen Therapy, ED [RC] PRN Peripheral IV Care [RC] . DIRECTED Pulse Oximetry [RC] CONTINUOUS Up With Assistance [RC] PFP Vital Signs [RC] PFP Sodium Chloride 0.9% [Saline Flush] 10 ml FLUSH ASDIRECTED PRN Obtain Past Medical Record [OM.PC] Urgent Peripheral IV Insertion Adult [OM.PC] Stat Resuscitation Status Stat EKG 12 Lead [EK] Stat 12/06/20 10:27 Isolation [COMM] Routine 12/06/20 10:28 Abdomen Series w Chest 1V [CR] Routine 12/06/20 10:30 CULTURE STREP A CONFIRMATION [RM] Stat STREP SCRN A RAPID W CULT CONF [RM] Stat 12/06/20 10:55 CULTURE URINE [RM] Routine 12/06/20 11:00 CORONAVIRUS COVID-19 DARIUSZ [MOLEC] Stat 12/06/20 11:26 Peripheral IV Care [RC] . DIRECTED Dextrose 50% in Water 50 ml IV ASDIRECTED PRN Glucagon,Human Recombinant [GlucaGen] 1 mg IM ASDIRECTED PRN Sodium Chloride 0.9% [Saline Flush] 10 ml FLUSH ASDIRECTED PRN Peripheral IV Insertion Adult [OM.PC] Stat 12/06/20 11:30 Insulin Regular, Human [HumuLIN R] 100 unit Sodium Chloride 0.9% [Normal Saline] 99 ml IV TITRATE 12/06/20 11:46 Blood Culture x2 Reflex Set [OM.PC] Urgent 12/06/20 12:00 CULTURE BLOOD [BC] Stat 12/06/20 12:10 CULTURE BLOOD [BC] Stat Assessment:: As above Plan: As above. Extensive precautions were given to the patient, who is in agreement with the treatment plan. The patient will require about 3-4 days of inpatient/acute care secondary to multiple health problems as above.
[2020-12-06] MEDS ORDERED: Lactated Ringers 1,000 ML IV ONE ×2 (10:29→12:21)
[2020-12-06] MEDS: Sodium Chloride 0.9% 10 ML Syringe FLUSH PRN ×2 (10:50→11:32)
[2020-12-06 11:10] LABS: PTT,PARTIAL THROMBOPLSTIN TIME 26.4 SEC (24.5-32.8)
[2020-12-06 11:17] LABS: HEMOGLOBIN A1C 12.5 % (4.3-5.7)
[2020-12-06 11:21] LABS: CHLORIDE,CL 95 mmol/L (98-107); SODIUM,NA 130 mmol/L (136-145)
[2020-12-06] MEDS ORDERED: cefTRIAXone 2 GM Vial IVPUSH ONE (11:24)
[2020-12-06 11:25] LABS: BARBITURATE SCREEN,URINE NEGATIVE (NEGATIVE); BENZODIAZEPINES SCREEN,URINE NEGATIVE (NEGATIVE); EDDP,URINE SCREEN NEGATIVE (NEGATIVE); TCA SCREEN,URINE NEGATIVE (NEGATIVE); THC SCREEN,URINE 50 NG/ML NEGATIVE (NEGATIVE)
[2020-12-06] MEDS ORDERED: Glucagon,Human Recombinant 1 MG Vial IM PRN ×3 (11:26→18:00)
[2020-12-06] MEDS ORDERED: Sodium Chloride 0.9% 10 ML Syringe FLUSH PRN (11:26)
[2020-12-06] MEDS ORDERED: Insulin Regular, Human 100 Units/ML 3 ML Vial IV ONE (11:26)
[2020-12-06] MEDS ORDERED: 50% Dextrose in Water 50 ML Syringe IV PRN ×3 (11:26→18:00)
[2020-12-06] MEDS ORDERED: Pantoprazole 40 MG Vial IVPUSH ONE (11:29)
[2020-12-06] MEDS ORDERED: Famotidine 20 MG/2 ML SDV IVPUSH ONE (11:29)
[2020-12-06] MEDS ORDERED: Lactated Ringers 1,000 ML IV SCH (12:45)
[2020-12-06] MEDS ORDERED: Ondansetron 4 MG/2 ML SDV IVPUSH PRN (13:00)
[2020-12-06] MEDS ORDERED: Acetaminophen 325 MG Tab PO PRN (13:00)
[2020-12-06] MEDS: Sodium Chloride 0.9% 10 ML Syringe FLUSH SCH ×3 (16:26→22:18)
[2020-12-06 16:36] LABS: CHLORIDE,CL 103 mmol/L (98-107); SODIUM,NA 137 mmol/L (136-145)
[2020-12-06] MEDS ORDERED: Ketorolac 30 MG/ML SDV IVPUSH ONE (16:53)
[2020-12-06] MEDS ORDERED: Ketorolac 15 MG/ML SDV IVPUSH PRN (16:53)
[2020-12-06] MEDS ORDERED: Diazepam 5 MG Tab PO PRN (16:56)
[2020-12-06] MEDS ORDERED: Ketorolac 30 MG/ML SDV ONE (17:15)
[2020-12-06] MEDS: Dextrose 5%-Lactated Ringers 1,000 ML IV SCH (17:25)
[2020-12-06] MEDS ORDERED: Insulin Lispro Protamine/Lispro 75-25 100 Units/ML 10 ML Vial SUBCUT ONE (17:59)
[2020-12-06] MEDS ORDERED: Potassium Chloride 20 MEQ Tab.ER PO ONE (18:03)
[2020-12-06] MEDS ORDERED: Insulin Lispro Protamine/Lispro 75-25 100 Units/ML 10 ML Vial ONE (18:13)
[2020-12-06] MEDS ORDERED: Temazepam 15 MG Cap PO PRN (20:00)
[2020-12-06] MEDS: Insulin Lispro 100 Units/ML 3 ML Vial SUBCUT SCH (22:19)
[2020-12-06] MEDS: Pantoprazole 40 MG Vial IVPUSH SCH (22:21)
[2020-12-06] MEDS: cefTRIAXone 1 GM in Sodium Chloride 0.9% 100 ML IV SCH (22:21)
[2020-12-07] MEDS: Dextrose 5%-Lactated Ringers 1,000 ML IV SCH ×2 (01:18→09:18)
[2020-12-07] MEDS: Insulin Lispro 100 Units/ML 3 ML Vial SUBCUT SCH ×4 (04:36→22:45)
[2020-12-07] MEDS: Sodium Chloride 0.9% 10 ML Syringe FLUSH SCH ×2 (07:42→19:27)
[2020-12-07 08:16] LABS: CHLORIDE,CL 103 mmol/L (98-107); SODIUM,NA 134 mmol/L (136-145)
[2020-12-07] MEDS ORDERED: Glucagon,Human Recombinant 1 MG Vial IM PRN ×3 (09:31→23:04)
[2020-12-07] MEDS ORDERED: 50% Dextrose in Water 50 ML Syringe IV PRN ×3 (09:31→23:04)
[2020-12-07] MEDS ORDERED: Lactated Ringers 1,000 ML IV ONE (09:36)
[2020-12-07] MEDS ORDERED: Iopamidol 612 MG/ML 100 ML Bottle IVPUSH STA (09:46)
[2020-12-07] MEDS: Potassium Phosphate,Mb-Db/Sodium Phosphate,Mb-Db Packet PO SCH ×4 (10:08→19:28)
[2020-12-07] MEDS: Insulin Lispro Protamine/Lispro 75-25 100 Units/ML 10 ML Vial SUBCUT SCH ×2 (10:08→19:33)
[2020-12-07] MEDS: Pantoprazole 40 MG Vial IVPUSH SCH ×2 (11:09→22:40)
[2020-12-07] MEDS: cefTRIAXone 1 GM in Sodium Chloride 0.9% 100 ML IV SCH ×2 (11:10→22:40)
[2020-12-07] MEDS: Famotidine 20 MG/2 ML SDV IVPUSH SCH ×2 (11:10→22:40)
[2020-12-07] MEDS: Sodium Chloride 0.9% 10 ML Syringe FLUSH PRN (11:21)
[2020-12-07] MEDS: Lactated Ringers 1,000 ML IV SCH ×2 (11:44→19:26)
[2020-12-07] MEDS ORDERED: Potassium Phosphate,Mb-Db/Sodium Phosphate,Mb-Db Packet PO SCH (12:00)
--- NOTE | 2020-12-07 12:46 | PCM.PN ---
- General Info Date of Service: 12/07/20 Admission Dx/Problem (Free Text): 1. Ketoacidosis 2. IDDMdecompensated 3. Hyponatremia 4. Dehydration Functional Status: Reports: Pain Controlled, Urinating. Denies: Tolerating Diet (N.p.o. but wants to eat), Ambulating, New Symptoms, Incentive Spirometry Pain Score: 1 (Low back, left upper quadrant) - Review of Systems General: Reports: Fatigue. Denies: Fever, Weakness, Malaise, Chills, Night Sweats, Appetite (Improved) HEENT: Reports: No Symptoms. Denies: Sinus Congestion, Visual Changes Pulmonary: Reports: No Symptoms. Denies: Shortness of Breath, Pleuritic Chest Pain, Cough, Sputum Cardiovascular: Reports: No Symptoms. Denies: Chest Pain, Palpitations, Dyspnea on Exertion, Orthopnea, Edema, Lightheadedness Gastrointestinal: Reports: Abdominal Pain (Mild borderline left upper quadrant), Other (No bowel movement since admission). Denies: Constipation, Decreased Appe tite, Diarrhea, Difficulty Swallowing, Flatus, Hematochezia, Melena, Nausea, Vomiting Genitourinary: Reports: No Symptoms. Denies: Dysuria, Frequency, Burning, Pain, Urgency, Incontinence, Hematuria, Retention, Flank Pain Musculoskeletal: Reports: No Symptoms, Back Pain (Significant improvement of low back pain after IV Valium and oral Flexeril with only minimal symptoms at this time). Denies: Neck Pain, Shoulder Pain, Arm Pain, Leg Pain Skin: Reports: No Symptoms. Denies: Diaphoresis, Dryness, Bruising Neurological: Reports: No Symptoms. Denies: Confusion, Dizziness, Headache, Numbness, Paresthesia, Tingling, Tremors, Difficulty Walking, Weakness Psychiatric: Denies: Confusion, Depression, Anxiety, Agitation, Cravings, Hallucinations - Patient Data Vitals - Most Recent: Last Vital Signs Temp 37.1 C 12/07/20 12:00 Pulse 87 12/07/20 12:00 Resp 18 12/07/20 12:00 BP 107/55 L 12/07/20 12:00 Pulse Ox 100 12/07/20 12:00 Vital Signs - 24 hr 12/06/20 12/06/20 12/06/20 14:14 16:00 20:00 Temperature [ 35.7 C L 36.0 C L 37.0 C Temporal] Pulse, 100 100 107 H Peripheral [ Pulse Oximetry] Respiratory 20 24 H 22 H Rate Blood Pressure 130/69 124/62 130/73 [Right Upper Arm] O2 Sat by Pulse 100 100 100 Oximetry 12/06/20 12/07/20 12/07/20 23:18 04:00 07:40 Temperature [ 36.6 C 36.9 C 36.8 C Temporal] Pulse, 102 H 110 H 107 H Peripheral [ Pulse Oximetry] Respiratory 20 20 19 Rate Blood Pressure 121/66 132/63 96/61 [Right Upper Arm] O2 Sat by Pulse 100 100 100 Oximetry 12/07/20 12:00 Temperature [ 37.1 C Temporal] Pulse, 87 Peripheral [ Pulse Oximetry] Respiratory 18 Rate Blood Pressure 107/55 L [Right Upper Arm] O2 Sat by Pulse 100 Oximetry Weight - Most Recent: 80.24 kg I&O - Last 24 Hours: Intake & Output 12/06/20 12/07/20 12/07/20 22:59 06:59 14:59 Intake Total 2769 3199 2048 Output Total 1700 3000 1000 Balance 2065 775 1120 Imaging Impressions - Last 24 Hours: front desk monitor shows normal sinus rhythm in the 90s with improvement of radius mild sinus tachycardia in the 110s. No ectopy or arrhythmia. Telephone consultation at 11:03 AM with the radiology department at [facility]. Preliminary verbal report of CT scan of the abdomen pelvis with contrast was positive for only mild inflammatory pancreatitis with no evide nce of pancreatic pseudocyst, etc. Final report has been received. Lab Results Last 24 Hours: Laboratory Results - last 24 hr 12/06/20 12/06/20 12/06/20 Range/Units 11:00 13:25 14:25 WBC (4.0-10.2) K/uL RBC (4.33-5.41) M/uL Hgb (13.1-16.8) g/dL Hct (39.0-49.0) % MCV (84.0-98.0) fL MCH (28.2-33.3) pg MCHC (31.7-36.0) g/dL RDW (11.2-14.1) % Plt Count (150-350) K/uL Neut % (Auto) (45.0-80.0) % Lymph % (Auto) (10.0-50.0) % Esmeralda % (Auto) (2.0-14.0) % Eos % (Auto) (0.0-5.0) % Baso % (Auto) (0.0-2.0) % Neut # (Auto) (1.40-7.00) K/uL Lymph # (Auto) (0.50-3.50) K/uL Esmeralda # (Auto) (0.00-1.00) K/uL Eos # (Auto) (0.00-0.50) K/uL Baso # (Auto) (0.00-0.20) K/uL Sodium (136-145) mmol/L Potassium (3.5-5.1) mmol/L Chloride (98-107) mmol/L Carbon Dioxide (21.0-32.0) mmol/L BUN (7-18) mg/dL Creatinine (0.51-1.17) mg/dL Est Cr Clr Drug Dosing mL/min Estimated GFR (MDRD) mL/min Glucose 382 H 237 H (70-99) mg/dL POC Glucose (70-99) mg/dL Lactic Acid (0.4-2.0) mmol/L Calcium (8.5-10.1) mg/dL Phosphorus (2.6-4.7) mg/dL Total Bilirubin (0.2-1.0) mg/dL AST (15-37) U/L ALT (12-78) U/L Alkaline Phosphatase (46-116) IU/L Creatine Kinase (26-308) U/L Creatine Kinase Index (0.0-2.5) % CK-MB (CK-2) (0.00-3.60) ng/mL Troponin I (0.000-0.056) ng/mL Total Protein (6.4-8.2) g/dL Albumin (3.4-5.0) g/dL Amylase (25-115) U/L Lipase (73-393) U/L Ketones SARS-CoV-2 RNA (DARIUSZ) Negative (NEGATIVE) 12/06/20 12/06/20 12/07/20 Range/Units 15:20 17:47 04:31 WBC (4.0-10.2) K/uL RBC (4.33-5.41) M/uL Hgb (13.1-16.8) g/dL Hct (39.0-49.0) % MCV (84.0-98.0) fL MCH (28.2-33.3) pg MCHC (31.7-36.0) g/dL RDW (11.2-14.1) % Plt Count (150-350) K/uL Neut % (Auto) (45.0-80.0) % Lymph % (Auto) (10.0-50.0) % Esmeralda % (Auto) (2.0-14.0) % Eos % (Auto) (0.0-5.0) % Baso % (Auto) (0.0-2.0) % Neut # (Auto) (1.40-7.00) K/uL Lymph # (Auto) (0.50-3.50) K/uL Esmeralda # (Auto) (0.00-1.00) K/uL Eos # (Auto) (0.00-0.50) K/uL Baso # (Auto) (0.00-0.20) K/uL Sodium 137 (136-145) mmol/L Potassium 3.9 (3.5-5.1) mmol/L Chloride 103 (98-107) mmol/L Carbon Dioxide 10.3 L (21.0-32.0) mmol/L BUN 14 (7-18) mg/dL Creatinine 0.70 (0.51-1.17) mg/dL Est Cr Clr Drug Dosing 146.57 mL/min Estimated GFR (MDRD) > 60 mL/min Glucose 165 H (70-99) mg/dL POC Glucose 223 H 340 H (70-99) mg/dL Lactic Acid (0.4-2.0) mmol/L Calcium 8.5 (8.5-10.1) mg/dL Phosphorus (2.6-4.7) mg/dL Total Bilirubin (0.2-1.0) mg/dL AST (15-37) U/L ALT (12-78) U/L Alkaline Phosphatase (46-116) IU/L Creatine Kinase (26-308) U/L Creatine Kinase Index (0.0-2.5) % CK-MB (CK-2) (0.00-3.60) ng/mL Troponin I (0.000-0.056) ng/mL Total Protein (6.4-8.2) g/dL Albumin (3.4-5.0) g/dL Amylase (25-115) U/L Lipase (73-393) U/L Ketones SARS-CoV-2 RNA (DARIUSZ) (NEGATIVE) 12/07/20 12/07/20 12/07/20 Range/Units 07:32 07:32 07:32 WBC (4.0-10.2) K/uL RBC (4.33-5.41) M/uL Hgb (13.1-16.8) g/dL Hct (39.0-49.0) % MCV (84.0-98.0) fL MCH (28.2-33.3) pg MCHC (31.7-36.0) g/dL RDW (11.2-14.1) % Plt Count (150-350) K/uL Neut % (Auto) (45.0-80.0) % Lymph % (Auto) (10.0-50.0) % Esmeralda % (Auto) (2.0-14.0) % Eos % (Auto) (0.0-5.0) % Baso % (Auto) (0.0-2.0) % Neut # (Auto) (1.40-7.00) K/uL Lymph # (Auto) (0.50-3.50) K/uL Esmeralda # (Auto) (0.00-1.00) K/uL Eos # (Auto) (0.00-0.50) K/uL Baso # (Auto) (0.00-0.20) K/uL Sodium 134 L (136-145) mmol/L Potassium 4.3 (3.5-5.1) mmol/L Chloride 103 (98-107) mmol/L Carbon Dioxide 8.2 L* (21.0-32.0) mmol/L BUN 11 (7-18) mg/dL Creatinine 0.81 (0.51-1.17) mg/dL Est Cr Clr Drug Dosing 126.67 mL/min Estimated GFR (MDRD) > 60 mL/min Glucose 334 H (70-99) mg/dL POC Glucose (70-99) mg/dL Lactic Acid 1.4 (0.4-2.0) mmol/L Calcium 8.8 (8.5-10.1) mg/dL Phosphorus 1.6 L (2.6-4.7) mg/dL Total Bilirubin 0.7 (0.2-1.0) mg/dL AST 11 L (15-37) U/L ALT 25 (12-78) U/L Alkaline Phosphatase 93 (46-116) IU/L Creatine Kinase 93 (26-308) U/L Creatine Kinase Index 4.3 H (0.0-2.5) % CK-MB (CK-2) 4.00 H (0.00-3.60) ng/mL Troponin I 0.000 (0.000-0.056) ng/mL Total Protein 6.4 (6.4-8.2) g/dL Albumin 3.7 (3.4-5.0) g/dL Amylase 441 H (25-115) U/L Lipase 2741 H (73-393) U/L Ketones Large-80 mg/dl SARS-CoV-2 RNA (DARIUSZ) (NEGATIVE) 12/07/20 12/07/20 Range/Units 07:32 11:04 WBC 11.5 H (4.0-10.2) K/uL RBC 5.65 H (4.33-5.41) M/uL Hgb 16.6 (13.1-16.8) g/dL Hct 44.1 (39.0-49.0) % MCV 78.1 L (84.0-98.0) fL MCH 29.4 (28.2-33.3) pg MCHC 37.6 H (31.7-36.0) g/dL RDW 13.9 (11.2-14.1) % Plt Count 258 D (150-350) K/uL Neut % (Auto) 74.1 (45.0-80.0) % Lymph % (Auto) 18.7 (10.0-50.0) % Esmeralda % (Auto) 7.0 (2.0-14.0) % Eos % (Auto) 0.1 (0.0-5.0) % Baso % (Auto) 0.1 (0.0-2.0) % Neut # (Auto) 8.52 H (1.40-7.00) K/uL Lymph # (Auto) 2.15 (0.50-3.50) K/uL Esmeralda # (Auto) 0.81 (0.00-1.00) K/uL Eos # (Auto) 0.01 (0.00-0.50) K/uL Baso # (Auto) 0.01 (0.00-0.20) K/uL Sodium (136-145) mmol/L Potassium (3.5-5.1) mmol/L Chloride (98-107) mmol/L Carbon Dioxide (21.0-32.0) mmol/L BUN (7-18) mg/dL Creatinine (0.51-1.17) mg/dL Est Cr Clr Drug Dosing mL/min Estimated GFR (MDRD) mL/min Glucose (70-99) mg/dL POC Glucose 273 H (70-99) mg/dL Lactic Acid (0.4-2.0) mmol/L Calcium (8.5-10.1) mg/dL Phosphorus (2.6-4.7) mg/dL Total Bilirubin (0.2-1.0) mg/dL AST (15-37) U/L ALT (12-78) U/L Alkaline Phosphatase (46-116) IU/L Creatine Kinase (26-308) U/L Creatine Kinase Index (0.0-2.5) % CK-MB (CK-2) (0.00-3.60) ng/mL Troponin I (0.000-0.056) ng/mL Total Protein (6.4-8.2) g/dL Albumin (3.4-5.0) g/dL Amylase (25-115) U/L Lipase (73-393) U/L Ketones SARS-CoV-2 RNA (DARIUSZ) (NEGATIVE) Laboratory Tests 12/06/20 12/06/20 12/06/20 Range/Units 10:17 10:40 10:40 WBC 16.9 H (4.0-10.2) K/uL RBC 6.03 H (4.33-5.41) M/uL Hgb 17.7 H D (13.1-16.8) g/dL Hct 47.8 (39.0-49.0) % MCV 79.3 L (84.0-98.0) fL MCH 29.4 (28.2-33.3) pg MCHC 37.0 H (31.7-36.0) g/dL RDW 13.7 (11.2-14.1) % Plt Count 341 D (150-350) K/uL Neut % (Auto) 89.6 H (45.0-80.0) % Lymph % (Auto) 6.8 L (10.0-50.0) % Esmeralda % (Auto) 3.3 (2.0-14.0) % Eos % (Auto) 0.1 (0.0-5.0) % Baso % (Auto) 0.2 (0.0-2.0) % Neut # (Auto) 15.10 H (1.40-7.00) K/uL Lymph # (Auto) 1.14 (0.50-3.50) K/uL Esmeralda # (Auto) 0.56 (0.00-1.00) K/uL Eos # (Auto) 0.01 (0.00-0.50) K/uL Baso # (Auto) 0.04 (0.00-0.20) K/uL PT 9.4 L (9.5-12.0) SEC INR 0.9 APTT 26.4 (24.5-32.8) SEC D-Dimer, Quantitative (0-400) ng/mL Sodium (136-145) mmol/L Potassium (3.5-5.1) mmol/L Chloride (98-107) mmol/L Carbon Dioxide (21.0-32.0) mmol/L BUN (7-18) mg/dL Creatinine (0.51-1.17) mg/dL Est Cr Clr Drug Dosing Estimated GFR (MDRD) mL/min Glucose (70-99) mg/dL POC Glucose 452 H* (70-99) mg/dL Hemoglobin A1c (4.3-5.7) % Lactic Acid (0.4-2.0) mmol/L Uric Acid (2.6-7.2) mg/dL Calcium (8.5-10.1) mg/dL Phosphorus (2.6-4.7) mg/dL Magnesium (1.8-2.4) mg/dL Total Bilirubin (0.2-1.0) mg/dL AST (15-37) U/L ALT (12-78) U/L Alkaline Phosphatase (46-116) IU/L Creatine Kinase (26-308) U/L Creatine Kinase Index (0.0-2.5) % CK-MB (CK-2) (0.00-3.60) ng/mL Troponin I (0.000-0.056) ng/mL NT-Pro-B Natriuret Pep (0-125) pg/mL Total Protein (6.4-8.2) g/dL Albumin (3.4-5.0) g/dL Amylase (25-115) U/L Lipase (73-393) U/L TSH, Ultra Sensitive (0.358-3.740) mIU/mL Specimen Type Urine Color Urine Appearance Urine pH (5.0-9.0) Ur Specific Leon (1.005-1.030) Urine Protein (NEGATIVE) mg/dL Urine Glucose (UA) (NEGATIVE) mg/dL Urine Ketones (NEGATIVE) mg/dL Urine Occult Blood (NEGATIVE) Urine Nitrite (NEGATIVE) Urine Bilirubin (NEGATIVE) Urine Urobilinogen (0.2-1.0) E.U./dL Ur Leukocyte Esterase (NEGATIVE) Urine RBC /HPF Urine WBC /HPF Ur Epithelial Cells /LPF Urine Bacteria (NONE TO FEW) /HPF Granular Casts (Auto) Urine Opiates Screen (NEGATIVE) Ur Buprenorphine Scrn (NEGATIVE) Ur Oxycodone Screen (NEGATIVE) Ur EDDP (Meth Metab) (NEGATIVE) Ur Barbiturates Screen (NEGATIVE) Ur Tricyclics Screen (NEGATIVE) Ur Amphetamine Screen (NEGATIVE) U Methamphetamines Scrn (NEGATIVE) Urine MDMA Screen (NEGATIVE) U Benzodiazepines Scrn (NEGATIVE) U Cocaine Metab Screen (NEGATIVE) U Marijuana (THC) Screen (NEGATIVE) Ethyl Alcohol (0.000-0.080) g/dL Ketones SARS-CoV-2 RNA (DARIUSZ) (NEGATIVE) 12/06/20 12/06/20 12/06/20 Range/Units 10:40 10:40 10:40 WBC (4.0-10.2) K/uL RBC (4.33-5.41) M/uL Hgb (13.1-16.8) g/dL Hct (39.0-49.0) % MCV (84.0-98.0) fL MCH (28.2-33.3) pg MCHC (31.7-36.0) g/dL RDW (11.2-14.1) % Plt Count (150-350) K/uL Neut % (Auto) (45.0-80.0) % Lymph % (Auto) (10.0-50.0) % Esmeralda % (Auto) (2.0-14.0) % Eos % (Auto) (0.0-5.0) % Baso % (Auto) (0.0-2.0) % Neut # (Auto) (1.40-7.00) K/uL Lymph # (Auto) (0.50-3.50) K/uL Esmeralda # (Auto) (0.00-1.00) K/uL Eos # (Auto) (0.00-0.50) K/uL Baso # (Auto) (0.00-0.20) K/uL PT (9.5-12.0) SEC INR APTT (24.5-32.8) SEC D-Dimer, Quantitative < 100 (0-400) ng/mL Sodium 130 L D (136-145) mmol/L Potassium 4.6 (3.5-5.1) mmol/L Chloride 95 L (98-107) mmol/L Carbon Dioxide 6.4 L* D (21.0-32.0) mmol/L BUN 14 (7-18) mg/dL Creatinine 0.91 (0.51-1.17) mg/dL Est Cr Clr Drug Dosing TNP Estimated GFR (MDRD) > 60 mL/min Glucose 494 H* (70-99) mg/dL POC Glucose (70-99) mg/dL Hemoglobin A1c (4.3-5.7) % Lactic Acid 1.5 (0.4-2.0) mmol/L Uric Acid 8.1 H (2.6-7.2) mg/dL Calcium 8.5 (8.5-10.1) mg/dL Phosphorus 4.3 (2.6-4.7) mg/dL Magnesium 2.0 (1.8-2.4) mg/dL Total Bilirubin 0.7 (0.2-1.0) mg/dL AST 10 L (15-37) U/L ALT 28 (12-78) U/L Alkaline Phosphatase 106 (46-116) IU/L Creatine Kinase 83 (26-308) U/L Creatine Kinase Index 4.7 H (0.0-2.5) % CK-MB (CK-2) 3.90 H (0.00-3.60) ng/mL Troponin I 0.000 (0.000-0.056) ng/mL NT-Pro-B Natriuret Pep 20 (0-125) pg/mL Total Protein 7.9 (6.4-8.2) g/dL Albumin 4.6 (3.4-5.0) g/dL Amylase 160 H (25-115) U/L Lipase 2578 H (73-393) U/L TSH, Ultra Sensitive 1.209 (0.358-3.740) mIU/mL Specimen Type Urine Color Urine Appearance Urine pH (5.0-9.0) Ur Specific Leon (1.005-1.030) Urine Protein (NEGATIVE) mg/dL Urine Glucose (UA) (NEGATIVE) mg/dL Urine Ketones (NEGATIVE) mg/dL Urine Occult Blood (NEGATIVE) Urine Nitrite (NEGATIVE) Urine Bilirubin (NEGATIVE) Urine Urobilinogen (0.2-1.0) E.U./dL Ur Leukocyte Esterase (NEGATIVE) Urine RBC /HPF Urine WBC /HPF Ur Epithelial Cells /LPF Urine Bacteria (NONE TO FEW) /HPF Granular Casts (Auto) Urine Opiates Screen (NEGATIVE) Ur Buprenorphine Scrn (NEGATIVE) Ur Oxycodone Screen (NEGATIVE) Ur EDDP (Meth Metab) (NEGATIVE) Ur Barbiturates Screen (NEGATIVE) Ur Tricyclics Screen (NEGATIVE) Ur Amphetamine Screen (NEGATIVE) U Methamphetamines Scrn (NEGATIVE) Urine MDMA Screen (NEGATIVE) U Benzodiazepines Scrn (NEGATIVE) U Cocaine Metab Screen (NEGATIVE) U Marijuana (THC) Screen (NEGATIVE) Ethyl Alcohol < 0.100 H (0.000-0.080) g/dL Ketones SARS-CoV-2 RNA (DARIUSZ) (NEGATIVE) 12/06/20 12/06/20 12/06/20 Range/Units 10:40 10:40 10:55 WBC (4.0-10.2) K/uL RBC (4.33-5.41) M/uL Hgb (13.1-16.8) g/dL Hct (39.0-49.0) % MCV (84.0-98.0) fL MCH (28.2-33.3) pg MCHC (31.7-36.0) g/dL RDW (11.2-14.1) % Plt Count (150-350) K/uL Neut % (Auto) (45.0-80.0) % Lymph % (Auto) (10.0-50.0) % Esmeralda % (Auto) (2.0-14.0) % Eos % (Auto) (0.0-5.0) % Baso % (Auto) (0.0-2.0) % Neut # (Auto) (1.40-7.00) K/uL Lymph # (Auto) (0.50-3.50) K/uL Esmeralda # (Auto) (0.00-1.00) K/uL Eos # (Auto) (0.00-0.50) K/uL Baso # (Auto) (0.00-0.20) K/uL PT (9.5-12.0) SEC INR APTT (24.5-32.8) SEC D-Dimer, Quantitative (0-400) ng/mL Sodium (136-145) mmol/L Potassium (3.5-5.1) mmol/L Chloride (98-107) mmol/L Carbon Dioxide (21.0-32.0) mmol/L BUN (7-18) mg/dL Creatinine (0.51-1.17) mg/dL Est Cr Clr Drug Dosing Estimated GFR (MDRD) mL/min Glucose (70-99) mg/dL POC Glucose (70-99) mg/dL Hemoglobin A1c 12.5 H (4.3-5.7) % Lactic Acid (0.4-2.0) mmol/L Uric Acid (2.6-7.2) mg/dL Calcium (8.5-10.1) mg/dL Phosphorus (2.6-4.7) mg/dL Magnesium (1.8-2.4) mg/dL Total Bilirubin (0.2-1.0) mg/dL AST (15-37) U/L ALT (12-78) U/L Alkaline Phosphatase (46-116) IU/L Creatine Kinase (26-308) U/L Creatine Kinase Index (0.0-2.5) % CK-MB (CK-2) (0.00-3.60) ng/mL Troponin I (0.000-0.056) ng/mL NT-Pro-B Natriuret Pep (0-125) pg/mL Total Protein (6.4-8.2) g/dL Albumin (3.4-5.0) g/dL Amylase (25-115) U/L Lipase (73-393) U/L TSH, Ultra Sensitive (0.358-3.740) mIU/mL Specimen Type Urinvoid Urine Color Yellow Urine Appearance Slightly cloudy Urine pH 5.0 (5.0-9.0) Ur Specific Leon 1.025 (1.005-1.030) Urine Protein 100 H (NEGATIVE) mg/dL Urine Glucose (UA) 500 H (NEGATIVE) mg/dL Urine Ketones >=160 H (NEGATIVE) mg/dL Urine Occult Blood Small H (NEGATIVE) Urine Nitrite Negative (NEGATIVE) Urine Bilirubin Small H (NEGATIVE) Urine Urobilinogen 0.2 (0.2-1.0) E.U./dL Ur Leukocyte Esterase Negative (NEGATIVE) Urine RBC 0-5 /HPF Urine WBC 0-5 /HPF Ur Epithelial Cells Few /LPF Urine Bacteria Few (NONE TO FEW) /HPF Granular Casts (Auto) Few Urine Opiates Screen (NEGATIVE) Ur Buprenorphine Scrn (NEGATIVE) Ur Oxycodone Screen (NEGATIVE) Ur EDDP (Meth Metab) (NEGATIVE) Ur Barbiturates Screen (NEGATIVE) Ur Tricyclics Screen (NEGATIVE) Ur Amphetamine Screen (NEGATIVE) U Methamphetamines Scrn (NEGATIVE) Urine MDMA Screen (NEGATIVE) U Benzodiazepines Scrn (NEGATIVE) U Cocaine Metab Screen (NEGATIVE) U Marijuana (THC) Screen (NEGATIVE) Ethyl Alcohol (0.000-0.080) g/dL Ketones Moderate SARS-CoV-2 RNA (DARIUSZ) (NEGATIVE) 12/06/20 12/06/20 12/06/20 Range/Units 10:55 11:00 13:25 WBC (4.0-10.2) K/uL RBC (4.33-5.41) M/uL Hgb (13.1-16.8) g/dL Hct (39.0-49.0) % MCV (84.0-98.0) fL MCH (28.2-33.3) pg MCHC (31.7-36.0) g/dL RDW (11.2-14.1) % Plt Count (150-350) K/uL Neut % (Auto) (45.0-80.0) % Lymph % (Auto) (10.0-50.0) % Esmeralda % (Auto) (2.0-14.0) % Eos % (Auto) (0.0-5.0) % Baso % (Auto) (0.0-2.0) % Neut # (Auto) (1.40-7.00) K/uL Lymph # (Auto) (0.50-3.50) K/uL Esmeralda # (Auto) (0.00-1.00) K/uL Eos # (Auto) (0.00-0.50) K/uL Baso # (Auto) (0.00-0.20) K/uL PT (9.5-12.0) SEC INR APTT (24.5-32.8) SEC D-Dimer, Quantitative (0-400) ng/mL Sodium (136-145) mmol/L Potassium (3.5-5.1) mmol/L Chloride (98-107) mmol/L Carbon Dioxide (21.0-32.0) mmol/L BUN (7-18) mg/dL Creatinine (0.51-1.17) mg/dL Est Cr Clr Drug Dosing Estimated GFR (MDRD) mL/min Glucose 382 H (70-99) mg/dL POC Glucose (70-99) mg/dL Hemoglobin A1c (4.3-5.7) % Lactic Acid (0.4-2.0) mmol/L Uric Acid (2.6-7.2) mg/dL Calcium (8.5-10.1) mg/dL Phosphorus (2.6-4.7) mg/dL Magnesium (1.8-2.4) mg/dL Total Bilirubin (0.2-1.0) mg/dL AST (15-37) U/L ALT (12-78) U/L Alkaline Phosphatase (46-116) IU/L Creatine Kinase (26-308) U/L Creatine Kinase Index (0.0-2.5) % CK-MB (CK-2) (0.00-3.60) ng/mL Troponin I (0.000-0.056) ng/mL NT-Pro-B Natriuret Pep (0-125) pg/mL Total Protein (6.4-8.2) g/dL Albumin (3.4-5.0) g/dL Amylase (25-115) U/L Lipase (73-393) U/L TSH, Ultra Sensitive (0.358-3.740) mIU/mL Specimen Type Urine Color Urine Appearance Urine pH (5.0-9.0) Ur Specific Leon (1.005-1.030) Urine Protein (NEGATIVE) mg/dL Urine Glucose (UA) (NEGATIVE) mg/dL Urine Ketones (NEGATIVE) mg/dL Urine Occult Blood (NEGATIVE) Urine Nitrite (NEGATIVE) Urine Bilirubin (NEGATIVE) Urine Urobilinogen (0.2-1.0) E.U./dL Ur Leukocyte Esterase (NEGATIVE) Urine RBC /HPF Urine WBC /HPF Ur Epithelial Cells /LPF Urine Bacteria (NONE TO FEW) /HPF Granular Casts (Auto) Urine Opiates Screen Negative (NEGATIVE) Ur Buprenorphine Scrn Negative (NEGATIVE) Ur Oxycodone Screen Negative (NEGATIVE) Ur EDDP (Meth Metab) Negative (NEGATIVE) Ur Barbiturates Screen Negative (NEGATIVE) Ur Tricyclics Screen Negative (NEGATIVE) Ur Amphetamine Screen Negative (NEGATIVE) U Methamphetamines Scrn Negative (NEGATIVE) Urine MDMA Screen Negative (NEGATIVE) U Benzodiazepines Scrn Negative (NEGATIVE) U Cocaine Metab Screen Negative (NEGATIVE) U Marijuana (THC) Screen Negative (NEGATIVE) Ethyl Alcohol (0.000-0.080) g/dL Ketones SARS-CoV-2 RNA (DARIUSZ) Negative (NEGATIVE) 12/06/20 12/06/20 12/06/20 Range/Units 14:25 15:20 17:47 WBC (4.0-10.2) K/uL RBC (4.33-5.41) M/uL Hgb (13.1-16.8) g/dL Hct (39.0-49.0) % MCV (84.0-98.0) fL MCH (28.2-33.3) pg MCHC (31.7-36.0) g/dL RDW (11.2-14.1) % Plt Count (150-350) K/uL Neut % (Auto) (45.0-80.0) % Lymph % (Auto) (10.0-50.0) % Esmeralda % (Auto) (2.0-14.0) % Eos % (Auto) (0.0-5.0) % Baso % (Auto) (0.0-2.0) % Neut # (Auto) (1.40-7.00) K/uL Lymph # (Auto) (0.50-3.50) K/uL Esmeralda # (Auto) (0.00-1.00) K/uL Eos # (Auto) (0.00-0.50) K/uL Baso # (Auto) (0.00-0.20) K/uL PT (9.5-12.0) SEC INR APTT (24.5-32.8) SEC D-Dimer, Quantitative (0-400) ng/mL Sodium 137 (136-145) mmol/L Potassium 3.9 (3.5-5.1) mmol/L Chloride 103 (98-107) mmol/L Carbon Dioxide 10.3 L (21.0-32.0) mmol/L BUN 14 (7-18) mg/dL Creatinine 0.70 (0.51-1.17) mg/dL Est Cr Clr Drug Dosing 146.57 Estimated GFR (MDRD) > 60 mL/min Glucose 237 H 165 H (70-99) mg/dL POC Glucose 223 H (70-99) mg/dL Hemoglobin A1c (4.3-5.7) % Lactic Acid (0.4-2.0) mmol/L Uric Acid (2.6-7.2) mg/dL Calcium 8.5 (8.5-10.1) mg/dL Phosphorus (2.6-4.7) mg/dL Magnesium (1.8-2.4) mg/dL Total Bilirubin (0.2-1.0) mg/dL AST (15-37) U/L ALT (12-78) U/L Alkaline Phosphatase (46-116) IU/L Creatine Kinase (26-308) U/L Creatine Kinase Index (0.0-2.5) % CK-MB (CK-2) (0.00-3.60) ng/mL Troponin I (0.000-0.056) ng/mL NT-Pro-B Natriuret Pep (0-125) pg/mL Total Protein (6.4-8.2) g/dL Albumin (3.4-5.0) g/dL Amylase (25-115) U/L Lipase (73-393) U/L TSH, Ultra Sensitive (0.358-3.740) mIU/mL Specimen Type Urine Color Urine Appearance Urine pH (5.0-9.0) Ur Specific Leon (1.005-1.030) Urine Protein (NEGATIVE) mg/dL Urine Glucose (UA) (NEGATIVE) mg/dL Urine Ketones (NEGATIVE) mg/dL Urine Occult Blood (NEGATIVE) Urine Nitrite (NEGATIVE) Urine Bilirubin (NEGATIVE) Urine Urobilinogen (0.2-1.0) E.U./dL Ur Leukocyte Esterase (NEGATIVE) Urine RBC /HPF Urine WBC /HPF Ur Epithelial Cells /LPF Urine Bacteria (NONE TO FEW) /HPF Granular Casts (Auto) Urine Opiates Screen (NEGATIVE) Ur Buprenorphine Scrn (NEGATIVE) Ur Oxycodone Screen (NEGATIVE) Ur EDDP (Meth Metab) (NEGATIVE) Ur Barbiturates Screen (NEGATIVE) Ur Tricyclics Screen (NEGATIVE) Ur Amphetamine Screen (NEGATIVE) U Methamphetamines Scrn (NEGATIVE) Urine MDMA Screen (NEGATIVE) U Benzodiazepines Scrn (NEGATIVE) U Cocaine Metab Screen (NEGATIVE) U Marijuana (THC) Screen (NEGATIVE) Ethyl Alcohol (0.000-0.080) g/dL Ketones SARS-CoV-2 RNA (DARIUSZ) (NEGATIVE) 12/07/20 12/07/20 12/07/20 Range/Units 04:31 07:32 07:32 WBC (4.0-10.2) K/uL RBC (4.33-5.41) M/uL Hgb (13.1-16.8) g/dL Hct (39.0-49.0) % MCV (84.0-98.0) fL MCH (28.2-33.3) pg MCHC (31.7-36.0) g/dL RDW (11.2-14.1) % Plt Count (150-350) K/uL Neut % (Auto) (45.0-80.0) % Lymph % (Auto) (10.0-50.0) % Esmeralda % (Auto) (2.0-14.0) % Eos % (Auto) (0.0-5.0) % Baso % (Auto) (0.0-2.0) % Neut # (Auto) (1.40-7.00) K/uL Lymph # (Auto) (0.50-3.50) K/uL Esmeralda # (Auto) (0.00-1.00) K/uL Eos # (Auto) (0.00-0.50) K/uL Baso # (Auto) (0.00-0.20) K/uL PT (9.5-12.0) SEC INR APTT (24.5-32.8) SEC D-Dimer, Quantitative (0-400) ng/mL Sodium 134 L (136-145) mmol/L Potassium 4.3 (3.5-5.1) mmol/L Chloride 103 (98-107) mmol/L Carbon Dioxide 8.2 L* (21.0-32.0) mmol/L BUN 11 (7-18) mg/dL Creatinine 0.81 (0.51-1.17) mg/dL Est Cr Clr Drug Dosing 126.67 Estimated GFR (MDRD) > 60 mL/min Glucose 334 H (70-99) mg/dL POC Glucose 340 H (70-99) mg/dL Hemoglobin A1c (4.3-5.7) % Lactic Acid 1.4 (0.4-2.0) mmol/L Uric Acid (2.6-7.2) mg/dL Calcium 8.8 (8.5-10.1) mg/dL Phosphorus 1.6 L (2.6-4.7) mg/dL Magnesium (1.8-2.4) mg/dL Total Bilirubin 0.7 (0.2-1.0) mg/dL AST 11 L (15-37) U/L ALT 25 (12-78) U/L Alkaline Phosphatase 93 (46-116) IU/L Creatine Kinase 93 (26-308) U/L Creatine Kinase Index 4.3 H (0.0-2.5) % CK-MB (CK-2) 4.00 H (0.00-3.60) ng/mL Troponin I 0.000 (0.000-0.056) ng/mL NT-Pro-B Natriuret Pep (0-125) pg/mL Total Protein 6.4 (6.4-8.2) g/dL Albumin 3.7 (3.4-5.0) g/dL Amylase 441 H (25-115) U/L Lipase 2741 H (73-393) U/L TSH, Ultra Sensitive (0.358-3.740) mIU/mL Specimen Type Urine Color Urine Appearance Urine pH (5.0-9.0) Ur Specific Leon (1.005-1.030) Urine Protein (NEGATIVE) mg/dL Urine Glucose (UA) (NEGATIVE) mg/dL Urine Ketones (NEGATIVE) mg/dL Urine Occult Blood (NEGATIVE) Urine Nitrite (NEGATIVE) Urine Bilirubin (NEGATIVE) Urine Urobilinogen (0.2-1.0) E.U./dL Ur Leukocyte Esterase (NEGATIVE) Urine RBC /HPF Urine WBC /HPF Ur Epithelial Cells /LPF Urine Bacteria (NONE TO FEW) /HPF Granular Casts (Auto) Urine Opiates Screen (NEGATIVE) Ur Buprenorphine Scrn (NEGATIVE) Ur Oxycodone Screen (NEGATIVE) Ur EDDP (Meth Metab) (NEGATIVE) Ur Barbiturates Screen (NEGATIVE) Ur Tricyclics Screen (NEGATIVE) Ur Amphetamine Screen (NEGATIVE) U Methamphetamines Scrn (NEGATIVE) Urine MDMA Screen (NEGATIVE) U Benzodiazepines Scrn (NEGATIVE) U Cocaine Metab Screen (NEGATIVE) U Marijuana (THC) Screen (NEGATIVE) Ethyl Alcohol (0.000-0.080) g/dL Ketones SARS-CoV-2 RNA (DARIUSZ) (NEGATIVE) 12/07/20 12/07/20 12/07/20 Range/Units 07:32 07:32 11:04 WBC 11.5 H (4.0-10.2) K/uL RBC 5.65 H (4.33-5.41) M/uL Hgb 16.6 (13.1-16.8) g/dL Hct 44.1 (39.0-49.0) % MCV 78.1 L (84.0-98.0) fL MCH 29.4 (28.2-33.3) pg MCHC 37.6 H (31.7-36.0) g/dL RDW 13.9 (11.2-14.1) % Plt Count 258 D (150-350) K/uL Neut % (Auto) 74.1 (45.0-80.0) % Lymph % (Auto) 18.7 (10.0-50.0) % Esmeralda % (Auto) 7.0 (2.0-14.0) % Eos % (Auto) 0.1 (0.0-5.0) % Baso % (Auto) 0.1 (0.0-2.0) % Neut # (Auto) 8.52 H (1.40-7.00) K/uL Lymph # (Auto) 2.15 (0.50-3.50) K/uL Esmeralda # (Auto) 0.81 (0.00-1.00) K/uL Eos # (Auto) 0.01 (0.00-0.50) K/uL Baso # (Auto) 0.01 (0.00-0.20) K/uL PT (9.5-12.0) SEC INR APTT (24.5-32.8) SEC D-Dimer, Quantitative (0-400) ng/mL Sodium (136-145) mmol/L Potassium (3.5-5.1) mmol/L Chloride (98-107) mmol/L Carbon Dioxide (21.0-32.0) mmol/L BUN (7-18) mg/dL Creatinine (0.51-1.17) mg/dL Est Cr Clr Drug Dosing Estimated GFR (MDRD) mL/min Glucose (70-99) mg/dL POC Glucose 273 H (70-99) mg/dL Hemoglobin A1c (4.3-5.7) % Lactic Acid (0.4-2.0) mmol/L Uric Acid (2.6-7.2) mg/dL Calcium (8.5-10.1) mg/dL Phosphorus (2.6-4.7) mg/dL Magnesium (1.8-2.4) mg/dL Total Bilirubin (0.2-1.0) mg/dL AST (15-37) U/L ALT (12-78) U/L Alkaline Phosphatase (46-116) IU/L Creatine Kinase (26-308) U/L Creatine Kinase Index (0.0-2.5) % CK-MB (CK-2) (0.00-3.60) ng/mL Troponin I (0.000-0.056) ng/mL NT-Pro-B Natriuret Pep (0-125) pg/mL Total Protein (6.4-8.2) g/dL Albumin (3.4-5.0) g/dL Amylase (25-115) U/L Lipase (73-393) U/L TSH, Ultra Sensitive (0.358-3.740) mIU/mL Specimen Type Urine Color Urine Appearance Urine pH (5.0-9.0) Ur Specific Leon (1.005-1.030) Urine Protein (NEGATIVE) mg/dL Urine Glucose (UA) (NEGATIVE) mg/dL Urine Ketones (NEGATIVE) mg/dL Urine Occult Blood (NEGATIVE) Urine Nitrite (NEGATIVE) Urine Bilirubin (NEGATIVE) Urine Urobilinogen (0.2-1.0) E.U./dL Ur Leukocyte Esterase (NEGATIVE) Urine RBC /HPF Urine WBC /HPF Ur Epithelial Cells /LPF Urine Bacteria (NONE TO FEW) /HPF Granular Casts (Auto) Urine Opiates Screen (NEGATIVE) Ur Buprenorphine Scrn (NEGATIVE) Ur Oxycodone Screen (NEGATIVE) Ur EDDP (Meth Metab) (NEGATIVE) Ur Barbiturates Screen (NEGATIVE) Ur Tricyclics Screen (NEGATIVE) Ur Amphetamine Screen (NEGATIVE) U Methamphetamines Scrn (NEGATIVE) Urine MDMA Screen (NEGATIVE) U Benzodiazepines Scrn (NEGATIVE) U Cocaine Metab Screen (NEGATIVE) U Marijuana (THC) Screen (NEGATIVE) Ethyl Alcohol (0.000-0.080) g/dL Ketones Large-80 mg/dl SARS-CoV-2 RNA (DARIUSZ) (NEGATIVE) [place] Results Last 24 Hours: Microbiology 12/06/20 10:55 Urine Culture - Preliminary Urine, Bladder NO GROWTH AFTER 1 DAY 12/06/20 12:10 Aerobic Blood Culture - Preliminary Blood - Venous - Lab Draw NO GROWTH AFTER 1 DAY Anaerobic Blood Culture - Preliminary NO GROWTH AFTER 1 DAY 12/06/20 12:00 Aerobic Blood Culture - Preliminary Blood - Venous NO GROWTH AFTER 1 DAY Anaerobic Blood Culture - Preliminary NO GROWTH AFTER 1 DAY 12/06/20 10:30 Quick Strep Confirmation Culture - Final Throat NO GROUP A STREP ISOLATED REFERENCE RANGE: NEGATIVE Group A Streptococcus Rapid Screen - Final NEGATIVE STREP A SCREEN REFERENCE RANGE: NEGATIVE 12/06/20 10:30 Influenza Type A Antigen Screen - Final Nasal, Unspecified NEGATIVE INFLUENZA A VIRUS AG REFERENCE RANGE: NEGATIVE Influenza Type B Antigen Screen - Final NEGATIVE INFLUENZA B VIRUS AG REFERENCE RANGE: NEGATIVE Med Orders - Current: Current Medications Acetaminophen (Acetaminophen 325 Mg Tab) 650 mg PO Q4H PRN PRN Reason: Pain Dextrose/Water (50% Dextrose In Water 50 Ml Syringe) 50 ml IV ASDIRECTED PRN PRN Reason: Hypoglycemia Diazepam (Diazepam 5 Mg Tab) 5 mg PO TID PRN PRN Reason: Spasms Last Admin: 12/06/20 22:22 Dose: 5 mg Documented by: Famotidine (Famotidine 20 Mg/2 Ml Sdv) 20 mg IVPUSH Q12H RAMIRO Last Admin: 12/07/20 11:10 Dose: 20 mg Documented by: Glucagon (Glucagon,Human Recombinant 1 Mg Vial) 1 mg IM ASDIRECTED PRN PRN Reason: Hypoglycemia Glucagon (Glucagon,Human Recombinant 1 Mg Vial) 1 mg IM ASDIRECTED PRN PRN Reason: Hypoglycemia Ceftriaxone Sodium 1 gm/ (Sodium Chloride) 100 mls @ 200 mls/hr IV Q12H RAMIRO Last Admin: 12/07/20 11:10 Dose: 200 mls/hr Documented by: Lactated Ringer's (Ringers, Lactated) 1,000 mls @ 150 mls/hr IV ASDIRECTED RAMIRO Last Admin: 12/07/20 11:44 Dose: 150 mls/hr Documented by: Insulin Human Lispro (Insulin Lispro 100 Units/Ml 3 Ml Vial) 0 unit SUBCUT Q6H RAMIRO; Protocol Insulin Lispro Protam/Lispro Human (Insulin Lispro Protamine/Lispro 75-25 100 U nits/Ml 10 Ml Vial) 10 unit SUBCUT Q12HR [facility] Last Admin: 12/07/20 10:08 Dose: 10 unit Documented by: Ketorolac Tromethamine (Ketorolac 15 Mg/Ml Sdv) 15 mg IVPUSH Q6H PRN PRN Reason: Pain (severe 7-10) Ondansetron HCl (Ondansetron 4 Mg/2 Ml Sdv) 4 mg IVPUSH Q6H PRN PRN Reason: Nausea/Vomiting Last Admin: 12/06/20 16:26 Dose: 4 mg Documented by: Pantoprazole Sodium (Pantoprazole 40 Mg Vial) 40 mg IVPUSH Q12H [facility] Last Admin: 12/07/20 11:09 Dose: 40 mg Documented by: Potassium Phos/Sodium Phos (Potassium Phosphate,Mb-Db/Sodium Phosphate,Mb-Db Packet) 1 each PO QID [facility] Last Admin: 12/07/20 11:43 Dose: 1 each Documented by: Sodium Chloride (Sodium Chloride 0.9% 10 Ml Syringe) 10 ml FLUSH ASDIRECTED PRN PRN Reason: Keep Vein Open Last Admin: 12/07/20 11:21 Dose: 10 ml Documented by: Sodium Chloride (Sodium Chloride 0.9% 10 Ml Syringe) 10 ml FLUSH ASDIRECTED PRN PRN Reason: Keep Vein Open Last Admin: 12/06/20 19:55 Dose: 10 ml Documented by: Sodium Chloride (Sodium Chloride 0.9% 10 Ml Syringe) 10 ml FLUSH Q12HR [facility] Last Admin: 12/07/20 07:42 Dose: 10 ml Documented by: Discontinued Medications Ceftriaxone Sodium (Ceftriaxone 2 Gm Vial) 2 gm IVPUSH ONETIME ONE Stop: 12/06/20 11:25 Last Admin: 12/06/20 11:31 Dose: 2 gm Documented by: Dextrose/Water (50% Dextrose In Water 50 Ml Syringe) 50 ml IV ASDIRECTED PRN PRN Reason: Hypoglycemia Dextrose/Water (50% Dextrose In Water 50 Ml Syringe) 50 ml IV ASDIRECTED PRN PRN Reason: Hypoglycemia Diazepam (Diazepam 10 Mg/2 Ml Syringe) 2.5 mg IVPUSH ONETIME ONE Stop: 12/06/20 16:54 Last Admin: 12/06/20 17:49 Dose: 2.5 mg Documented by: Diazepam (Diazepam 10 Mg/2 Ml Syringe) Confirm Administered Dose 10 mg .ROUTE .STK-MED ONE Stop: 12/06/20 17:43 Last Admin: 12/06/20 18:19 Dose: Not Given Documented by: Famotidine (Famotidine 20 Mg/2 Ml Sdv) 40 mg IVPUSH ONETIME ONE Stop: 12/06/20 11:30 Last Admin: 12/06/20 11:36 Dose: 40 mg Documented by: Glucagon (Glucagon,Human Recombinant 1 Mg Vial) 1 mg IM ASDIRECTED PRN PRN Reason: Hypoglycemia Lactated Ringer's (Ringers, Lactated) 1,000 mls @ 999 mls/hr IV .BOLUS ONE Stop: 12/06/20 11:29 Last Admin: 12/06/20 10:50 Dose: 999 mls/hr Documented by: Insulin Human Regular 100 unit (/ Sodium Chloride) 100 mls @ 8.029 mls/hr IV TITRATE [facility]; Protocol Last Admin: 12/06/20 12:06 Dose: 0.1 units/kg/hr, 8.029 mls/hr Documented by: Lactated Ringer's (Ringers, Lactated) 1,000 mls @ 999 mls/hr IV .BOLUS ONE Stop: 12/06/20 13:21 Last Admin: 12/06/20 12:25 Dose: 999 mls/hr Documented by: Lactated Ringer's (Ringers, Lactated) 1,000 mls @ 150 mls/hr IV ASDIRECTED [facility] Last Admin: 12/06/20 13:40 Dose: 150 mls/hr Documented by: Dextrose/Lactated Ringer's (Dextrose 5%-Lactated Ringers) 1,000 mls @ 125 mls/hr IV ASDIRECTED [facility] Last Admin: 12/07/20 09:18 Dose: 125 mls/hr Documented by: Lactated Ringer's (Ringers, Lactated) 1,000 mls @ 999 mls/hr IV .BOLUS ONE Stop: 12/07/20 10:36 Last Admin: 12/07/20 09:46 Dose: 999 mls/hr Documented by: Insulin Human Lispro (Insulin Lispro 100 Units/Ml 3 Ml Vial) 0 unit SUBCUT Q6H [facility]; Protocol Last Admin: 12/07/20 11:06 Dose: 6 units Documented by: Insulin Human Regular (Insulin Regular, Human 100 Units/Ml 3 Ml Vial) 10 unit IV ONETIME ONE Stop: 12/06/20 11:27 Last Admin: 12/06/20 11:38 Dose: 10 unit Documented by: Insulin Lispro Protam/Lispro Human (Insulin Lispro Protamine/Lispro 75-25 100 Units/Ml 10 Ml Vial) 4 unit SUBCUT ONETIME ONE Stop: 12/06/20 18:00 Last Admin: 12/06/20 18:19 Dose: 4 units Documented by: Insulin Lispro Protam/Lispro Human (Insulin Lispro Protamine/Lispro 75-25 100 Units/Ml 10 Ml Vial) Confirm Administered Dose 1,000 unit .ROUTE .STK-MED ONE Stop: 12/06/20 18:14 Last Admin: 12/06/20 18:22 Dose: Not Given Documented by: Iopamidol (Iopamidol 612 Mg/Ml 100 Ml Bottle) 100 ml IVPUSH ONETIME STA Stop: 12/07/20 09:47 Last Admin: 12/07/20 10:40 Dose: 100 ml Documented by: Ketorolac Tromethamine (Ketorolac 30 Mg/Ml Sdv) 30 mg IVPUSH ONETIME ONE Stop: 12/06/20 16:54 Last Admin: 12/06/20 17:25 Dose: 30 mg Documented by: Ketorolac Tromethamine (Ketorolac 30 Mg/Ml Sdv) Confirm Administered Dose 30 mg .ROUTE .STK-MED ONE Stop: 12/06/20 17:16 Last Admin: 12/06/20 18:19 Dose: Not Given Documented by: Pantoprazole Sodium (Pantoprazole 40 Mg Vial) 40 mg IVPUSH ONETIME ONE Stop: 12/06/20 11:30 Last Admin: 12/06/20 11:37 Dose: 40 mg Documented by: Potassium Chloride (Potassium Chloride 20 Meq Tab.Er) 20 meq PO ONETIME ONE Stop: 12/06/20 18:04 Last Admin: 12/06/20 18:24 Dose: 20 meq Documented by: Potassium Phos/Sodium Phos (Potassium Phosphate,Mb-Db/Sodium Phosphate,Mb-Db Packet) 1 each PO QID RAMIRO Temazepam (Temazepam 15 Mg Cap) 15 mg PO DAILY@1999 PRN PRN Reason: Insomnia - Exam Quality Assessment: DVT Prophylaxis. No: Supplemental Oxygen, Central Line/PICC, Urine Catheter, Skin Breakdown, Restraints General: Alert, Oriented, Cooperative, No Acute Distress HEENT: Pupils Equal, Pupils Reactive, EOMI, Mucous Membr. Moist/[place]. No: Scleral Icterus Neck: Supple, Trachea Midline, No JVD, No Thyromegaly, +2 Carotid Pulse wo Bruit. No: Lymphadenopathy Lungs: Clear to Auscultation, Normal Respiratory Effort. No: Rub Cardiovascular: Regular Rate, Regular Rhythm, No Murmurs. No: Gallops, Rubs GI/Abdominal Exam: Normal Bowel Sounds, No Organomegaly, No Distention, No Abnormal Bruit, No Mass. No: Non-Tender (Questionable borderline left upper quadrant palpation pain), Guarding, Rigid, Rebound (Male) Exam: Deferred Back Exam: Normal Inspection, Full Range of Motion. No: CVA Tenderness (L), CVA Tenderness (R), Muscle Spasm, Paraspinal Tenderness, Vertebral Tenderness Extremities: Normal Inspection, Normal Range of Motion, Non-Tender, No Pedal Edema, Normal Capillary Refill. No: Tan's Sign Peripheral Pulses: 2+: Radial (L), Radial (R), Dorsalis Pedis (L), Dorsalis Pedis (R) Skin: Warm, Dry, Intact. No: Ecchymosis Neurological: No New Focal Deficit Psy/Mental Status: Alert, Normal Affect, Normal Mood. No: Agitated, Hallucinations, Withdrawal Symptoms #1 Interpretation EKG Date: 12/07/20 Time: 08:54 Rhythm: NSR Rate (Beats/Min): 90 [place]: Normal P-Wave: Present QRS: Wide (0.01 seconds representing repolarization changes with T wave inversion in lead V1 however artifacts in V2) ST-T: Other (As above) QT: Normal OH/PQ Interval: 0.14 seconds representing short OH interval with no delta waves noted. Pulmonary hypertension by EKGnew. Comparison: Change From Previous EKG (As above since 12/06/2020) EKG Interpretation Comments: 1. No acute ischemic changes 2. Pulmonary hypertension by EKG 3. Short OH interval - Patient Data Lab Results Last 24 hrs: Laboratory Results - last 24 hr 12/06/20 12/06/20 12/06/20 Range/Units 11:00 13:25 14:25 WBC (4.0-10.2) K/uL RBC (4.33-5.41) M/uL Hgb (13.1-16.8) g/dL Hct (39.0-49.0) % MCV (84.0-98.0) fL MCH (28.2-33.3) pg MCHC (31.7-36.0) g/dL RDW (11.2-14.1) % Plt Count (150-350) K/uL Neut % (Auto) (45.0-80.0) % Lymph % (Auto) (10.0-50.0) % Esmeralda % (Auto) (2.0-14.0) % Eos % (Auto) (0.0-5.0) % Baso % (Auto) (0.0-2.0) % Neut # (Auto) (1.40-7.00) K/uL Lymph # (Auto) (0.50-3.50) K/uL Esmeralda # (Auto) (0.00-1.00) K/uL Eos # (Auto) (0.00-0.50) K/uL Baso # (Auto) (0.00-0.20) K/uL Sodium (136-145) mmol/L Potassium (3.5-5.1) mmol/L Chloride (98-107) mmol/L Carbon Dioxide (21.0-32.0) mmol/L BUN (7-18) mg/dL Creatinine (0.51-1.17) mg/dL Est Cr Clr Drug Dosing mL/min Estimated GFR (MDRD) mL/min Glucose 382 H 237 H (70-99) mg/dL POC Glucose (70-99) mg/dL Lactic Acid (0.4-2.0) mmol/L Calcium (8.5-10.1) mg/dL Phosphorus (2.6-4.7) mg/dL Total Bilirubin (0.2-1.0) mg/dL AST (15-37) U/L ALT (12-78) U/L Alkaline Phosphatase (46-116) IU/L Creatine Kinase (26-308) U/L Creatine Kinase Index (0.0-2.5) % CK-MB (CK-2) (0.00-3.60) ng/mL Troponin I (0.000-0.056) ng/mL Total Protein (6.4-8.2) g/dL Albumin (3.4-5.0) g/dL Amylase (25-115) U/L Lipase (73-393) U/L Ketones SARS-CoV-2 RNA (DARIUSZ) Negative (NEGATIVE) 12/06/20 12/06/20 12/07/20 Range/Units 15:20 17:47 04:31 WBC (4.0-10.2) K/uL RBC (4.33-5.41) M/uL Hgb (13.1-16.8) g/dL Hct (39.0-49.0) % MCV (84.0-98.0) fL MCH (28.2-33.3) pg MCHC (31.7-36.0) g/dL RDW (11.2-14.1) % Plt Count (150-350) K/uL Neut % (Auto) (45.0-80.0) % Lymph % (Auto) (10.0-50.0) % Esmeralda % (Auto) (2.0-14.0) % Eos % (Auto) (0.0-5.0) % Baso % (Auto) (0.0-2.0) % Neut # (Auto) (1.40-7.00) K/uL Lymph # (Auto) (0.50-3.50) K/uL Esmeralda # (Auto) (0.00-1.00) K/uL Eos # (Auto) (0.00-0.50) K/uL Baso # (Auto) (0.00-0.20) K/uL Sodium 137 (136-145) mmol/L Potassium 3.9 (3.5-5.1) mmol/L Chloride 103 (98-107) mmol/L Carbon Dioxide 10.3 L (21.0-32.0) mmol/L BUN 14 (7-18) mg/dL Creatinine 0.70 (0.51-1.17) mg/dL Est Cr Clr Drug Dosing 146.57 mL/min Estimated GFR (MDRD) > 60 mL/min Glucose 165 H (70-99) mg/dL POC Glucose 223 H 340 H (70-99) mg/dL Lactic Acid (0.4-2.0) mmol/L Calcium 8.5 (8.5-10.1) mg/dL Phosphorus (2.6-4.7) mg/dL Total Bilirubin (0.2-1.0) mg/dL AST (15-37) U/L ALT (12-78) U/L Alkaline Phosphatase (46-116) IU/L Creatine Kinase (26-308) U/L Creatine Kinase Index (0.0-2.5) % CK-MB (CK-2) (0.00-3.60) ng/mL Troponin I (0.000-0.056) ng/mL Total Protein (6.4-8.2) g/dL Albumin (3.4-5.0) g/dL Amylase (25-115) U/L Lipase (73-393) U/L Ketones SARS-CoV-2 RNA (DARIUSZ) (NEGATIVE) 12/07/20 12/07/20 12/07/20 Range/Units 07:32 07:32 07:32 WBC (4.0-10.2) K/uL RBC (4.33-5.41) M/uL Hgb (13.1-16.8) g/dL Hct (39.0-49.0) % MCV (84.0-98.0) fL MCH (28.2-33.3) pg MCHC (31.7-36.0) g/dL RDW (11.2-14.1) % Plt Count (150-350) K/uL Neut % (Auto) (45.0-80.0) % Lymph % (Auto) (10.0-50.0) % Esmeralda % (Auto) (2.0-14.0) % Eos % (Auto) (0.0-5.0) % Baso % (Auto) (0.0-2.0) % Neut # (Auto) (1.40-7.00) K/uL Lymph # (Auto) (0.50-3.50) K/uL Esmeralda # (Auto) (0.00-1.00) K/uL Eos # (Auto) (0.00-0.50) K/uL Baso # (Auto) (0.00-0.20) K/uL Sodium 134 L (136-145) mmol/L Potassium 4.3 (3.5-5.1) mmol/L Chloride 103 (98-107) mmol/L Carbon Dioxide 8.2 L* (21.0-32.0) mmol/L BUN 11 (7-18) mg/dL Creatinine 0.81 (0.51-1.17) mg/dL Est Cr Clr Drug Dosing 126.67 mL/min Estimated GFR (MDRD) > 60 mL/min Glucose 334 H (70-99) mg/dL POC Glucose (70-99) mg/dL Lactic Acid 1.4 (0.4-2.0) mmol/L Calcium 8.8 (8.5-10.1) mg/dL Phosphorus 1.6 L (2.6-4.7) mg/dL Total Bilirubin 0.7 (0.2-1.0) mg/dL AST 11 L (15-37) U/L ALT 25 (12-78) U/L Alkaline Phosphatase 93 (46-116) IU/L Creatine Kinase 93 (26-308) U/L Creatine Kinase Index 4.3 H (0.0-2.5) % CK-MB (CK-2) 4.00 H (0.00-3.60) ng/mL Troponin I 0.000 (0.000-0.056) ng/mL Total Protein 6.4 (6.4-8.2) g/dL Albumin 3.7 (3.4-5.0) g/dL Amylase 441 H (25-115) U/L Lipase 2741 H (73-393) U/L Ketones Large-80 mg/dl SARS-CoV-2 RNA (DARIUSZ) (NEGATIVE) 12/07/20 12/07/20 Range/Units 07:32 11:04 WBC 11.5 H (4.0-10.2) K/uL RBC 5.65 H (4.33-5.41) M/uL Hgb 16.6 (13.1-16.8) g/dL Hct 44.1 (39.0-49.0) % MCV 78.1 L (84.0-98.0) fL MCH 29.4 (28.2-33.3) pg MCHC 37.6 H (31.7-36.0) g/dL RDW 13.9 (11.2-14.1) % Plt Count 258 D (150-350) K/uL Neut % (Auto) 74.1 (45.0-80.0) % Lymph % (Auto) 18.7 (10.0-50.0) % Esmeralda % (Auto) 7.0 (2.0-14.0) % Eos % (Auto) 0.1 (0.0-5.0) % Baso % (Auto) 0.1 (0.0-2.0) % Neut # (Auto) 8.52 H (1.40-7.00) K/uL Lymph # (Auto) 2.15 (0.50-3.50) K/uL Esmeralda # (Auto) 0.81 (0.00-1.00) K/uL Eos # (Auto) 0.01 (0.00-0.50) K/uL Baso # (Auto) 0.01 (0.00-0.20) K/uL Sodium (136-145) mmol/L Potassium (3.5-5.1) mmol/L Chloride (98-107) mmol/L Carbon Dioxide (21.0-32.0) mmol/L BUN (7-18) mg/dL Creatinine (0.51-1.17) mg/dL Est Cr Clr Drug Dosing mL/min Estimated GFR (MDRD) mL/min Glucose (70-99) mg/dL POC Glucose 273 H (70-99) mg/dL Lactic Acid (0.4-2.0) mmol/L Calcium (8.5-10.1) mg/dL Phosphorus (2.6-4.7) mg/dL Total Bilirubin (0.2-1.0) mg/dL AST (15-37) U/L ALT (12-78) U/L Alkaline Phosphatase (46-116) IU/L Creatine Kinase (26-308) U/L Creatine Kinase Index (0.0-2.5) % CK-MB (CK-2) (0.00-3.60) ng/mL Troponin I (0.000-0.056) ng/mL Total Protein (6.4-8.2) g/dL Albumin (3.4-5.0) g/dL Amylase (25-115) U/L Lipase (73-393) U/L Ketones SARS-CoV-2 RNA (DARIUSZ) (NEGATIVE) Result Diagrams: 12/07/20 07:32 12/07/20 07:32 [place] Results Last 24 hrs: Microbiology 12/06/20 10:55 Urine Culture - Preliminary Urine, Bladder NO GROWTH AFTER 1 DAY 12/06/20 12:10 Aerobic Blood Culture - Preliminary Blood - Venous - Lab Draw NO GROWTH AFTER 1 DAY Anaerobic Blood Culture - Preliminary NO GROWTH AFTER 1 DAY 12/06/20 12:00 Aerobic Blood Culture - Preliminary Blood - Venous NO GROWTH AFTER 1 DAY Anaerobic Blood Culture - Preliminary NO GROWTH AFTER 1 DAY 12/06/20 10:30 Quick Strep Confirmation Culture - Final Throat NO GROUP A STREP ISOLATED REFERENCE RANGE: NEGATIVE Group A Streptococcus Rapid Screen - Final NEGATIVE STREP A SCREEN REFERENCE RANGE: NEGATIVE 12/06/20 10:30 Influenza Type A Antigen Screen - Final Nasal, Unspecified NEGATIVE INFLUENZA A VIRUS AG REFERENCE RANGE: NEGATIVE Influenza Type B Antigen Screen - Final NEGATIVE INFLUENZA B VIRUS AG REFERENCE RANGE: NEGATIVE Sepsis Event Note - Evaluation Sepsis Screening Result: No Definite Risk - Focused Exam Vital Signs: Vital Signs Temp Pulse Resp BP Pulse Ox 12/07/20 12:00 37.1 C 87 18 107/55 L 100 12/07/20 07:40 36.8 C 107 H 19 96/61 100 12/07/20 04:00 36.9 C 110 H 20 132/63 100 - Problem List & Annotations (1) IDDM (insulin dependent diabetes mellitus) SNOMED Code(s): 76673561 Code(s): KWW3513 - Status: Acute Priority: High Current Visit: Yes Onset Date: 12/06/20 Annotation/Comment:: Overall good results with human regular infusion, which was discontinued in the afternoon of 12/06/2020 and changed to subcu Humalog Mix twice daily regimen with continuation of Humalog sliding scale. director of special services consultation and diabetic teaching have been initiated with our social work coordinator possibly able to get coupons for patient's cu rrent expensive insulin. For now the patient will be instructed on drawing Humulin Mix from a bottle with social worker and pharmacy to determine what the cheapest and most reasonable therapy will be needed at discharge. Noticeably increased serum ketones this morning with patient's previous and D5 LR fluids subsequently changed to lactated Ringer's, including an additional 1 L IV bolus secondary to some mild nonsymptomatic hypotension. Clear liquid diet initiated on 12/06 with continuation of LR fluids for now. Significantly decompensated IDDM secondary to patient's financial problems and noncompliance with his home Accu-Cheks, insulin, etc. as per emergency room note. Aggressive diabetic management was initiated in the emergency room, including initial 10 unit IV bolus of Humulin regular insulin with subsequent initiation of Humulin regular infusional as per protocol. Continue to observe closely throughout this hospitalization. Patient counseled on the importance of medication compliance with social work coordinator to get with the patient concerning financial planning analyst for his insulin, insulin supplies, etc.. In spite of patient's UTI symptoms as above initial UA is negative with urine specimen set up for culture and sensitivity and negative to this point. Note improved moderate leukocytosis with blood cultures x2 collected and high-dose IV Rocephin initiated in the emergency room thereafter. Glycosylated hemoglobin significantly elevated at 12.5%. Lactic acid level is normal. Note moderate serum ketones with only mild ketonuria on admission. Consider ABGs depending on his clinical course, although sodium bicarbonate has recently lost favor for treatment of ketoacidosis. [employer] work excuse was completed with additional work excuse at time of discharge. (2) Ketoacidosis SNOMED Code(s): 11124952 Code(s): E87.2 - ACIDOSIS Status: Acute Priority: High Current Visit: Yes Onset Date: 12/06/20 Annotation/Comment:: As above. (3) Pancreatitis SNOMED Code(s): 73194572 Code(s): K85.90 - ACUTE PANCREATITIS WITHOUT NECROSIS OR INFECTION, UNSP Status: Acute Priority: High Current Visit: Yes Onset Date: 12/06/20 Qualifiers: Chronicity: acute Pancreatitis type: other Acute pancreatitis complication: unspecified Qualified Code(s): K85.80 - Other acute pancreatitis without necrosis or infection Annotation/Comment:: Note mild progression of his elevated lipase and amylase with CT scan of the abdomen pelvis results as above. Various therapeutic opti ons were discussed with the patient, including transfer to [place], however per his request hospitalization will be continued in this facility for now. Secondary to only mild pancreatitis by CT scan carefully initiate clear liquid, ADA, and heart healthy diet on 12/07 with slow progression during this hospitalization. No NG tube therapy for now. High-dose IV Pepcid and IV Protonix given in the emergency room and was continued throughout this hospitalization. Note that the patient was n.p.o. initially during the first 24 hours. (4) Dehydration SNOMED Code(s): 47693758 Code(s): E86.0 - DEHYDRATION Status: Acute Priority: High Current Visit: Yes Onset Date: 12/06/20 Annotation/Comment:: Moderate dehydration on admission with aggressive initial treatment in the emergency room, including 1 L IV bolus of lactated Ringer's upon patient's arrival to this facility. Continue IV hydration during this hospitalization as per previous Humulin regular infusion protocol and as above. No significant dehydration on 12/07. (5) Hyperuricemia SNOMED Code(s): 40087757 Code(s): E79.0 - HYPERURICEMIA W/O SIGNS OF INFLAM ARTHRIT AND TOPHACEOUS DIS Status: Acute Priority: Medium Current Visit: Yes Onset Date: 12/06/20 Annotation/Comment:: No previous history of gout, etc. His arthritis is o therwise stable. Observe for now. Aggressive IV hydration as above. (6) Mixed anxiety depressive disorder SNOMED Code(s): 642732388 Code(s): F41.8 - OTHER SPECIFIED ANXIETY DISORDERS Status: Acute Priority: Medium Current Visit: Yes Onset Date: 12/06/20 Annotation/Comment:: Borderline mixed anxiety depression disorder based on today's exam, however this may be due to his current illness. Continue to observe closely for now with no medical therapy to this point. (7) Peptic reflux disease SNOMED Code(s): 927631649 Code(s): K21.9 - GASTRO-ESOPHAGEAL REFLUX DISEASE WITHOUT ESOPHAGITIS Status: Chronic Priority: Medium Current Visit: Yes Annotation/Comment:: Patient denies. Nonproblematic to this point. IV Pepcid and IV Protonix given as above. (8) Elevated CK-MB level SNOMED Code(s): 523151006 Code(s): R74.8 - ABNORMAL LEVELS OF OTHER SERUM ENZYMES Status: Acute Priority: Medium Current Visit: Yes Onset Date: 12/06/20 Annotation/Comment:: Continued mildly elevated CK MB with normal troponin I, car diac index, and low baseline CK. No chest pain or anginal type symptoms, although some nonspecific dyspnea during the last couple days as above. No evidence of rhabdomyolysis. Continue aggressive IV hydration as above. (9) Hyponatremia SNOMED Code(s): 98288725 Code(s): E87.1 - HYPO-OSMOLALITY AND HYPONATREMIA Status: Acute Priority: High Current Visit: Yes Onset Date: 12/06/20 Annotation/Comment:: Aggressive IV hydration as above with initial normalization however returned mild hyponatremia on 12/07. Continue IV fluids as above with 3% sodium chloride infusion not needed at this time. (10) Shortened OH interval SNOMED Code(s): 85338372 Code(s): R94.31 - ABNORMAL ELECTROCARDIOGRAM [ECG] [EKG] Status: Acute Priority: Medium Current Visit: Yes Onset Date: 12/06/20 Annotation/Comment:: Nonsymptomatic. Observe for now. (11) Hypophosphatemia SNOMED Code(s): 1039404 Code(s): E83.39 - OTHER DISORDERS OF PHOSPHORUS METABOLISM Status: Acute Priority: Medium Current Visit: Yes Onset Date: 12/07/20 Annotation/Comment:: Normal on admission. Oral phosphate initiated on 12/07. - Problem List Review Problem List Initiated/Reviewed/Updated: Yes - My Orders Last 24 Hours: My Active Orders 12/06/20 11:46 Blood Culture x2 Reflex Set [OM.PC] Urgent 12/06/20 12:00 CULTURE BLOOD [BC] Stat 12/06/20 12:10 CULTURE BLOOD [BC] Stat 12/06/20 12:40 Communication Order [RC] 08,20 Communication Order [RC] 08,20 Height and Weight [RC] DAILY Intake and Output Strict [RC] ASDIRECTED Oxygen Therapy [RC] PRN Pulse Oximetry [RC] .PRN Up With Assistance [RC] ,20 OCCULT BLOOD DIAGNOSTIC [OP] Routine GM Immunization Reflex [OM.PC] Click to Edit 12/06/20 12:41 Communication, Vaccine [RC] .PRN Vaccines to be Administered [RC] PER UNIT ROUTINE 12/06/20 12:43 Consult to Case Management/Resource Conservationist [CONS] Routine 12/06/20 13:00 Acetaminophen [TylenoL] 650 mg PO Q4H PRN Ondansetron [Zofran] 4 mg IVPUSH Q6H PRN 12/06/20 14:32 Communication Order [RC] 08,12/06/20 16:46 Vital Signs [RC] Q4HR 12/06/20 16:53 Ketorolac [Toradol] 15 mg IVPUSH Q6H PRN 12/06/20 16:56 diazePAM [Valium.] 5 mg PO TID PRN 12/06/20 17:30 Blood Glucose Check, Bedside [RC] STAT 12/06/20 17:59 Glucagon,Human Recombinant [GlucaGen] 1 mg IM ASDIRECTED PRN 12/06/20 20:00 Sodium Chloride 0.9% [Saline Flush] 10 ml FLUSH Q12HR 12/06/20 22:00 Blood Glucose Check, Bedside [RC] Q6H 12/06/20 23:00 Pantoprazole [ProTONIX IV] 40 mg IVPUSH Q12H cefTRIAXone [Rocephin] 1 gm Sodium Chloride 0.9% [Normal Saline] 100 ml IV Q12H 12/07/20 05:11 EKG Documentation Completion [RC] ASDIRECTED 12/07/20 09:37 Abdomen Pelvis w Cont [CT] Stat 12/07/20 09:45 Insulin Lispro Prot/Lispro [HumaLOG Mix 75-25] 10 unit SUBCUT Q12HR NaPh,Mb-Db/K Ph,MB-DB [Phos-NaK Powder] 1 each PO QID 12/07/20 11:00 Famotidine [Pepcid] 20 mg IVPUSH Q12H Lactated Ringers [Ringers, Lactated] 1,000 ml IV ASDIRECTED 12/07/20 Lunch Clear Liquid Diet [DIET] 12/07/20 17:00 Insulin Lispro [HumaLOG] 0 unit SUBCUT Q6H 12/08/20 05:11 AMYLASE [CHEM] Routine CBC WITH AUTO DIFF [HEME] Routine CK W CKMB [CHEM] Routine COMPREHENSIVE METABOLIC PN,CMP [CHEM] Routine KETONES,BLOOD [CHEM] Routine LIPASE [CHEM] Routine PHOSPHORUS [CHEM] Routine TROPONIN I [CHEM] Routine - Assessment Assessment:: As above - Plan Plan:: As above. Extensive precautions were given to the patient and his mother, who are in agreement with the treatment plan. The patient will require about 3-4 days of inpatient/acute care secondary to multiple health problems as above. Rasheed richey physician assumes care in the a.m. The patient does need to establish a local primary care provider [facility] at discharge with close follow-up w ithin 3-5 days after hospital discharge recommended.
[2020-12-08] MEDS: Lactated Ringers 1,000 ML IV SCH (03:19)
[2020-12-08] MEDS ORDERED: Insulin Lispro Protamine/Lispro 75-25 100 Units/ML 10 ML Vial SUBCUT ONE (07:30)
[2020-12-08] MEDS: Insulin Lispro 100 Units/ML 3 ML Vial SUBCUT SCH ×4 (07:34→20:26)
[2020-12-08] MEDS: Insulin Lispro Protamine/Lispro 75-25 100 Units/ML 10 ML Vial SUBCUT SCH ×2 (07:36→16:57)
[2020-12-08] MEDS: Potassium Phosphate,Mb-Db/Sodium Phosphate,Mb-Db Packet PO SCH ×4 (07:37→20:22)
[2020-12-08] MEDS: Sodium Chloride 0.9% 10 ML Syringe FLUSH SCH ×2 (07:37→20:28)
[2020-12-08 08:19] LABS: CHLORIDE,CL 104 mmol/L (98-107); SODIUM,NA 137 mmol/L (136-145)
[2020-12-08] MEDS: Famotidine 20 MG/2 ML SDV IVPUSH SCH ×2 (11:15→23:02)
[2020-12-08] MEDS: Pantoprazole 40 MG Vial IVPUSH SCH ×2 (11:22→23:02)
[2020-12-08] MEDS: NS + KCl 20mEq/L 1,000 ML IV SCH ×2 (11:29→21:50)
[2020-12-08] MEDS: cefTRIAXone 1 GM in Sodium Chloride 0.9% 100 ML IV SCH ×2 (11:50→14:53)
--- NOTE | 2020-12-08 15:56 | PCM.PN ---
- General Info Date of Service: 12/08/20 Admission Dx/Problem (Free Text): Patient here for treatment of diabetic ketoacidosis Subjective Update: Feeling improved. Tolerating liquids. Mild nausea. Not hungry for food Functional Status: Reports: Pain Controlled, Ambulating, Urinating. Denies: New Symptoms - Review of Systems General: Reports: Malaise (improving), Appetite (poor). Denies: Fever, Weakness, Chills HEENT: Reports: No Symptoms Pulmonary: Reports: No Symptoms Cardiovascular: Reports: No Symptoms Gastrointestinal: Reports: Nausea. Denies: Abdominal Pain, Diarrhea, Vomiting Genitourinary: Reports: No Symptoms Musculoskeletal: Reports: No Symptoms Skin: Reports: No Symptoms Neurological: Reports: No Symptoms Psychiatric: Reports: No Symptoms - Patient Data Vitals - Most Recent: Last Vital Signs Temp 36.6 C 12/08/20 12:00 Pulse 86 12/08/20 12:00 Resp 16 12/08/20 12:00 BP 119/71 12/08/20 12:00 Pulse Ox 100 12/08/20 12:00 Weight - Most Recent: 81.511 kg I&O - Last 24 Hours: Intake & Output 12/08/20 12/08/20 12/08/20 06:59 14:59 22:59 Intake Total 1513 1580 Balance 1513 1580 Lab Results Last 24 Hours: Laboratory Results - last 24 hr 12/07/20 12/07/20 12/07/20 Range/Units 16:47 19:31 22:44 WBC (4.0-10.2) K/uL RBC (4.33-5.41) M/uL Hgb (13.1-16.8) g/dL Hct (39.0-49.0) % MCV (84.0-98.0) fL MCH (28.2-33.3) pg MCHC (31.7-36.0) g/dL RDW (11.2-14.1) % Plt Count (150-350) K/uL Neut % (Auto) (45.0-80.0) % Lymph % (Auto) (10.0-50.0) % Collin % (Auto) (2.0-14.0) % Eos % (Auto) (0.0-5.0) % Baso % (Auto) (0.0-2.0) % Neut # (Auto) (1.40-7.00) K/uL Lymph # (Auto) (0.50-3.50) K/uL Collin # (Auto) (0.00-1.00) K/uL Eos # (Auto) (0.00-0.50) K/uL Baso # (Auto) (0.00-0.20) K/uL Sodium (136-145) mmol/L Potassium (3.5-5.1) mmol/L Chloride (98-107) mmol/L Carbon Dioxide (21.0-32.0) mmol/L BUN (7-18) mg/dL Creatinine (0.51-1.17) mg/dL Est Cr Clr Drug Dosing mL/min Estimated GFR (MDRD) mL/min Glucose (70-99) mg/dL POC Glucose 223 H 227 H 200 H (70-99) mg/dL Calcium (8.5-10.1) mg/dL Phosphorus (2.6-4.7) mg/dL Total Bilirubin (0.2-1.0) mg/dL AST (15-37) U/L ALT (12-78) U/L Alkaline Phosphatase (46-116) IU/L Creatine Kinase (26-308) U/L Creatine Kinase Index (0.0-2.5) % CK-MB (CK-2) (0.00-3.60) ng/mL Troponin I (0.000-0.056) ng/mL NT-Pro-B Natriuret Pep (0-125) pg/mL Total Protein (6.4-8.2) g/dL Albumin (3.4-5.0) g/dL Amylase (25-115) U/L Lipase (73-393) U/L Ketones 12/08/20 12/08/20 12/08/20 Range/Units 03:11 07:25 07:25 WBC 6.0 (4.0-10.2) K/uL RBC 5.13 (4.33-5.41) M/uL Hgb 15.0 D (13.1-16.8) g/dL Hct 39.8 (39.0-49.0) % MCV 77.6 L (84.0-98.0) fL MCH 29.2 (28.2-33.3) pg MCHC 37.7 H (31.7-36.0) g/dL RDW 13.7 (11.2-14.1) % Plt Count 200 (150-350) K/uL Neut % (Auto) 53.4 (45.0-80.0) % Lymph % (Auto) 35.9 (10.0-50.0) % Collin % (Auto) 9.2 (2.0-14.0) % Eos % (Auto) 1.2 (0.0-5.0) % Baso % (Auto) 0.3 (0.0-2.0) % Neut # (Auto) 3.21 (1.40-7.00) K/uL Lymph # (Auto) 2.16 (0.50-3.50) K/uL Collin # (Auto) 0.55 (0.00-1.00) K/uL Eos # (Auto) 0.07 (0.00-0.50) K/uL Baso # (Auto) 0.02 (0.00-0.20) K/uL Sodium 137 (136-145) mmol/L Potassium 3.3 L (3.5-5.1) mmol/L Chloride 104 (98-107) mmol/L Carbon Dioxide 14.4 L (21.0-32.0) mmol/L BUN 8 (7-18) mg/dL Creatinine 0.62 (0.51-1.17) mg/dL Est Cr Clr Drug Dosing 165.48 mL/min Estimated GFR (MDRD) > 60 mL/min Glucose 268 H (70-99) mg/dL POC Glucose 169 H (70-99) mg/dL Calcium 8.5 (8.5-10.1) mg/dL Phosphorus 2.4 L (2.6-4.7) mg/dL Total Bilirubin 0.7 (0.2-1.0) mg/dL AST 10 L (15-37) U/L ALT 22 (12-78) U/L Alkaline Phosphatase 75 (46-116) IU/L Creatine Kinase 39 (26-308) U/L Creatine Kinase Index 4.4 H (0.0-2.5) % CK-MB (CK-2) 1.70 (0.00-3.60) ng/mL Troponin I 0.000 (0.000-0.056) ng/mL NT-Pro-B Natriuret Pep 11 (0-125) pg/mL Total Protein 5.7 L (6.4-8.2) g/dL Albumin 3.1 L (3.4-5.0) g/dL Amylase 95 (25-115) U/L Lipase 438 H (73-393) U/L Ketones 12/08/20 12/08/20 12/08/20 Range/Units 07:25 07:27 11:15 WBC (4.0-10.2) K/uL RBC (4.33-5.41) M/uL Hgb (13.1-16.8) g/dL Hct (39.0-49.0) % MCV (84.0-98.0) fL MCH (28.2-33.3) pg MCHC (31.7-36.0) g/dL RDW (11.2-14.1) % Plt Count (150-350) K/uL Neut % (Auto) (45.0-80.0) % Lymph % (Auto) (10.0-50.0) % Collin % (Auto) (2.0-14.0) % Eos % (Auto) (0.0-5.0) % Baso % (Auto) (0.0-2.0) % Neut # (Auto) (1.40-7.00) K/uL Lymph # (Auto) (0.50-3.50) K/uL Collin # (Auto) (0.00-1.00) K/uL Eos # (Auto) (0.00-0.50) K/uL Baso # (Auto) (0.00-0.20) K/uL Sodium (136-145) mmol/L Potassium (3.5-5.1) mmol/L Chloride (98-107) mmol/L Carbon Dioxide (21.0-32.0) mmol/L BUN (7-18) mg/dL Creatinine (0.51-1.17) mg/dL Est Cr Clr Drug Dosing mL/min Estimated GFR (MDRD) mL/min Glucose (70-99) mg/dL POC Glucose 250 H 215 H (70-99) mg/dL Calcium (8.5-10.1) mg/dL Phosphorus (2.6-4.7) mg/dL Total Bilirubin (0.2-1.0) mg/dL AST (15-37) U/L ALT (12-78) U/L Alkaline Phosphatase (46-116) IU/L Creatine Kinase (26-308) U/L Creatine Kinase Index (0.0-2.5) % CK-MB (CK-2) (0.00-3.60) ng/mL Troponin I (0.000-0.056) ng/mL NT-Pro-B Natriuret Pep (0-125) pg/mL Total Protein (6.4-8.2) g/dL Albumin (3.4-5.0) g/dL Amylase (25-115) U/L Lipase (73-393) U/L Ketones Small-20 mg/dl [place] Results Last 24 Hours: Microbiology 12/06/20 12:10 Aerobic Blood Culture - Preliminary Blood - Venous - Lab Draw NO GROWTH AFTER 2 DAYS Anaerobic Blood Culture - Preliminary NO GROWTH AFTER 2 DAYS 12/06/20 12:00 Aerobic Blood Culture - Preliminary Blood - Venous NO GROWTH AFTER 2 DAYS Anaerobic Blood Culture - Preliminary NO GROWTH AFTER 2 DAYS 12/06/20 10:55 Urine Culture - Final Urine, Bladder NO GROWTH AFTER 2 DAYS 12/06/20 12:40 Stool Occult Blood (GLEN) - Final Stool / Feces Med Orders - Current: Current Medications Acetaminophen (Acetaminophen 325 Mg Tab) 650 mg PO Q4H PRN PRN Reason: Pain Dextrose/Water (50% Dextrose In Water 50 Ml Syringe) 50 ml IV ASDIRECTED PRN PRN Reason: Hypoglycemia Diazepam (Diazepam 5 Mg Tab) 5 mg PO TID PRN PRN Reason: Spasms Last Admin: 12/06/20 22:22 Dose: 5 mg Documented by: Famotidine (Famotidine 20 Mg/2 Ml Sdv) 20 mg IVPUSH Q12H [facility] Last Admin: 12/08/20 11:15 Dose: 20 mg Documented by: Glucagon (Glucagon,Human Recombinant 1 Mg Vial) 1 mg IM ASDIRECTED PRN PRN Reason: Hypoglycemia Potassium Chloride/Sodium Chloride (Normal Saline With 20 Meq Kcl) 1,000 mls @ 100 mls/hr IV ASDIRECTED [facility]IRO Last Admin: 12/08/20 11:29 Dose: 100 mls/hr Documented by: Insulin Human Lispro (Insulin Lispro 100 Units/Ml 3 Ml Vial) 0 unit SUBCUT QIDACANDBED [facility]; Protocol Last Admin: 12/08/20 11:36 Dose: 4 units Documented by: Insulin Lispro Protam/Lispro Human (Insulin Lispro Protamine/Lispro 75-25 100 Units/Ml 10 Ml Vial) 14 unit SUBCUT BIDAC [facility] Last Admin: 12/08/20 07:36 Dose: 14 units Documented by: Ketorolac Tromethamine (Ketorolac 15 Mg/Ml Sdv) 15 mg IVPUSH Q6H PRN PRN Reason: Pain (severe 7-10) Ondansetron HCl (Ondansetron 4 Mg/2 Ml Sdv) 4 mg IVPUSH Q6H PRN PRN Reason: Nausea/Vomiting Last Admin: 12/06/20 16:26 Dose: 4 mg Documented by: Pantoprazole Sodium (Pantoprazole 40 Mg Vial) 40 mg IVPUSH Q12H [facility] Last Admin: 12/08/20 11:22 Dose: 40 mg Documented by: Potassium Phos/Sodium Phos (Potassium Phosphate,Mb-Db/Sodium Phosphate,Mb-Db Packet) 1 each PO QID [facility] Last Admin: 12/08/20 11:22 Dose: 1 each Documented by: Sodium Chloride (Sodium Chloride 0.9% 10 Ml Syringe) 10 ml FLUSH ASDIRECTED PRN PRN Reason: Keep Vein Open Last Admin: 12/07/20 11:21 Dose: 10 ml Documented by: Sodium Chloride (Sodium Chloride 0.9% 10 Ml Syringe) 10 ml FLUSH ASDIRECTED PRN PRN Reason: Keep Vein Open Last Admin: 12/06/20 19:55 Dose: 10 ml Documented by: Sodium Chloride (Sodium Chloride 0.9% 10 Ml Syringe) 10 ml FLUSH Q12HR [facility] Last Admin: 12/08/20 07:37 Dose: 10 ml Documented by: Discontinued Medications Ceftriaxone Sodium (Ceftriaxone 2 Gm Vial) 2 gm IVPUSH ONETIME ONE Stop: 12/06/20 11:25 Last Admin: 12/06/20 11:31 Dose: 2 gm Documented by: Dextrose/Water (50% Dextrose In Water 50 Ml Syringe) 50 ml IV ASDIRECTED PRN PRN Reason: Hypoglycemia Dextrose/Water (50% Dextrose In Water 50 Ml Syringe) 50 ml IV ASDIRECTED PRN PRN Reason: Hypoglycemia Dextrose/Water (50% Dextrose In Water 50 Ml Syringe) 50 ml IV ASDIRECTED PRN PRN Reason: Hypoglycemia Dextrose/Water (50% Dextrose In Water 50 Ml Syringe) 50 ml IV ASDIRECTED PRN PRN Reason: Hypoglycemia Diazepam (Diazepam 10 Mg/2 Ml Syringe) 2.5 mg IVPUSH ONETIME ONE Stop: 12/06/20 16:54 Last Admin: 12/06/20 17:49 Dose: 2.5 mg Documented by: Diazepam (Diazepam 10 Mg/2 Ml Syringe) Confirm Administered Dose 10 mg .ROUTE .STK-MED ONE Stop: 12/06/20 17:43 Last Admin: 12/06/20 18:19 Dose: Not Given Documented by: Famotidine (Famotidine 20 Mg/2 Ml Sdv) 40 mg IVPUSH ONETIME ONE Stop: 12/06/20 11:30 Last Admin: 12/06/20 11:36 Dose: 40 mg Documented by: Glucagon (Glucagon,Human Recombinant 1 Mg Vial) 1 mg IM ASDIRECTED PRN PRN Reason: Hypoglycemia Glucagon (Glucagon,Human Recombinant 1 Mg Vial) 1 mg IM ASDIRECTED PRN PRN Reason: Hypoglycemia Glucagon (Glucagon,Human Recombinant 1 Mg Vial) 1 mg IM ASDIRECTED PRN PRN Reason: Hypoglycemia Glucagon (Glucagon,Human Recombinant 1 Mg Vial) 1 mg IM ASDIRECTED PRN PRN Reason: Hypoglycemia Lactated Ringer's (Ringers, Lactated) 1,000 mls @ 999 mls/hr IV .BOLUS ONE Stop: 12/06/20 11:29 Last Admin: 12/06/20 10:50 Dose: 999 mls/hr Documented by: Insulin Human Regular 100 unit (/ Sodium Chloride) 100 mls @ 8.029 mls/hr IV TITRATE RAMIRO; Protocol Last Admin: 12/06/20 12:06 Dose: 0.1 units/kg/hr, 8.029 mls/hr Documented by: Lactated Ringer's (Ringers, Lactated) 1,000 mls @ 999 mls/hr IV .BOLUS ONE Stop: 12/06/20 13:21 Last Admin: 12/06/20 12:25 Dose: 999 mls/hr Documented by: Lactated Ringer's (Ringers, Lactated) 1,000 mls @ 150 mls/hr IV ASDIRECTED [facility] Last Admin: 12/06/20 13:40 Dose: 150 mls/hr Documented by: Ceftriaxone Sodium 1 gm/ (Sodium Chloride) 100 mls @ 200 mls/hr IV Q12H [facility] Last Admin: 12/08/20 14:53 Dose: Not Given Documented by: Dextrose/Lactated Ringer's (Dextrose 5%-Lactated Ringers) 1,000 mls @ 125 mls/hr IV ASDIRECTED [facility] Last Admin: 12/07/20 09:18 Dose: 125 mls/hr Documented by: Lactated Ringer's (Ringers, Lactated) 1,000 mls @ 999 mls/hr IV .BOLUS ONE Stop: 12/07/20 10:36 Last Admin: 12/07/20 09:46 Dose: 999 mls/hr Documented by: Lactated Ringer's (Ringers, Lactated) 1,000 mls @ 150 mls/hr IV ASDIRECTED [facility] Last Admin: 12/08/20 03:19 Dose: 150 mls/hr Documented by: Insulin Human Lispro (Insulin Lispro 100 Units/Ml 3 Ml Vial) 0 unit SUBCUT Q6H [facility]; Protocol Last Admin: 12/07/20 11:06 Dose: 6 units Documented by: Insulin Human Lispro (Insulin Lispro 100 Units/Ml 3 Ml Vial) 0 unit SUBCUT Q6H [facility]; Protocol Last Admin: 12/07/20 22:45 Dose: 4 units Documented by: Insulin Human Regular (Insulin Regular, Human 100 Units/Ml 3 Ml Vial) 10 unit IV ONETIME ONE Stop: 12/06/20 11:27 Last Admin: 12/06/20 11:38 Dose: 10 unit Documented by: Insulin Lispro Protam/Lispro Human (Insulin Lispro Protamine/Lispro 75-25 100 Units/Ml 10 Ml Vial) 4 unit SUBCUT ONETIME ONE Stop: 12/06/20 18:00 Last Admin: 12/06/20 18:19 Dose: 4 units Documented by: Insulin Lispro Protam/Lispro Human (Insulin Lispro Protamine/Lispro 75-25 100 Units/Ml 10 Ml Vial) Confirm Administered Dose 1,000 unit .ROUTE .STK-MED ONE Stop: 12/06/20 18:14 Last Admin: 12/06/20 18:22 Dose: Not Given Documented by: Insulin Lispro Protam/Lispro Human (Insulin Lispro Protamine/Lispro 75-25 100 Units/Ml 10 Ml Vial) 10 unit SUBCUT Q12HR [facility] Last Admin: 12/07/20 19:33 Dose: 10 unit Documented by: Insulin Lispro Protam/Lispro Human (Insulin Lispro Protamine/Lispro 75-25 100 Units/Ml 10 Ml Vial) 14 unit SUBCUT BIDAC ONE Stop: 12/08/20 07:31 Iopamidol (Iopamidol 612 Mg/Ml 100 Ml Bottle) 100 ml IVPUSH ONETIME STA Stop: 12/07/20 09:47 Last Admin: 12/07/20 10:40 Dose: 100 ml Documented by: Ketorolac Tromethamine (Ketorolac 30 Mg/Ml Sdv) 30 mg IVPUSH ONETIME ONE Stop: 12/06/20 16:54 Last Admin: 12/06/20 17:25 Dose: 30 mg Documented by: Ketorolac Tromethamine (Ketorolac 30 Mg/Ml Sdv) Confirm Administered Dose 30 mg .ROUTE .STK-MED ONE Stop: 12/06/20 17:16 Last Admin: 12/06/20 18:19 Dose: Not Given Documented by: Pantoprazole Sodium (Pantoprazole 40 Mg Vial) 40 mg IVPUSH ONETIME ONE Stop: 12/06/20 11:30 Last Admin: 12/06/20 11:37 Dose: 40 mg Documented by: Potassium Chloride (Potassium Chloride 20 Meq Tab.Er) 20 meq PO ONETIME ONE Stop: 12/06/20 18:04 Last Admin: 12/06/20 18:24 Dose: 20 meq Documented by: Potassium Phos/Sodium Phos (Potassium Phosphate,Mb-Db/Sodium Phosphate,Mb-Db Packet) 1 each PO QID RAMIRO Temazepam (Temazepam 15 Mg Cap) 15 mg PO DAILY@1999 PRN PRN Reason: Insomnia - Exam General: Alert, Oriented, Cooperative, No Acute Distress HEENT: Pupils Equal, Pupils Reactive, EOMI, Mucous Membr. Moist/[place] Neck: Supple Lungs: Clear to Auscultation, Normal Respiratory Effort Cardiovascular: Regular Rate, Regular Rhythm GI/Abdominal Exam: Soft, Non-Tender, No Distention, Abnormal Bowel Sounds (dimi nished throughout) (Male) Exam: Deferred Back Exam: No: CVA Tenderness (L), CVA Tenderness (R), Muscle Spasm Extremities: Normal Inspection, Normal Capillary Refill Skin: Warm, Dry Neurological: No New Focal Deficit Psy/Mental Status: Alert, Normal Affect, Normal Mood - Patient Data Lab Results Last 24 hrs: Laboratory Results - last 24 hr 12/07/20 12/07/20 12/07/20 Range/Units 16:47 19:31 22:44 WBC (4.0-10.2) K/uL RBC (4.33-5.41) M/uL Hgb (13.1-16.8) g/dL Hct (39.0-49.0) % MCV (84.0-98.0) fL MCH (28.2-33.3) pg MCHC (31.7-36.0) g/dL RDW (11.2-14.1) % Plt Count (150-350) K/uL Neut % (Auto) (45.0-80.0) % Lymph % (Auto) (10.0-50.0) % Collin % (Auto) (2.0-14.0) % Eos % (Auto) (0.0-5.0) % Baso % (Auto) (0.0-2.0) % Neut # (Auto) (1.40-7.00) K/uL Lymph # (Auto) (0.50-3.50) K/uL Collin # (Auto) (0.00-1.00) K/uL Eos # (Auto) (0.00-0.50) K/uL Baso # (Auto) (0.00-0.20) K/uL Sodium (136-145) mmol/L Potassium (3.5-5.1) mmol/L Chloride (98-107) mmol/L Carbon Dioxide (21.0-32.0) mmol/L BUN (7-18) mg/dL Creatinine (0.51-1.17) mg/dL Est Cr Clr Drug Dosing mL/min Estimated GFR (MDRD) mL/min Glucose (70-99) mg/dL POC Glucose 223 H 227 H 200 H (70-99) mg/dL Calcium (8.5-10.1) mg/dL Phosphorus (2.6-4.7) mg/dL Total Bilirubin (0.2-1.0) mg/dL AST (15-37) U/L ALT (12-78) U/L Alkaline Phosphatase (46-116) IU/L Creatine Kinase (26-308) U/L Creatine Kinase Index (0.0-2.5) % CK-MB (CK-2) (0.00-3.60) ng/mL Troponin I (0.000-0.056) ng/mL NT-Pro-B Natriuret Pep (0-125) pg/mL Total Protein (6.4-8.2) g/dL Albumin (3.4-5.0) g/dL Amylase (25-115) U/L Lipase (73-393) U/L Ketones 12/08/20 12/08/20 12/08/20 Range/Units 03:11 07:25 07:25 WBC 6.0 (4.0-10.2) K/uL RBC 5.13 (4.33-5.41) M/uL Hgb 15.0 D (13.1-16.8) g/dL Hct 39.8 (39.0-49.0) % MCV 77.6 L (84.0-98.0) fL MCH 29.2 (28.2-33.3) pg MCHC 37.7 H (31.7-36.0) g/dL RDW 13.7 (11.2-14.1) % Plt Count 200 (150-350) K/uL Neut % (Auto) 53.4 (45.0-80.0) % Lymph % (Auto) 35.9 (10.0-50.0) % Collin % (Auto) 9.2 (2.0-14.0) % Eos % (Auto) 1.2 (0.0-5.0) % Baso % (Auto) 0.3 (0.0-2.0) % Neut # (Auto) 3.21 (1.40-7.00) K/uL Lymph # (Auto) 2.16 (0.50-3.50) K/uL Collin # (Auto) 0.55 (0.00-1.00) K/uL Eos # (Auto) 0.07 (0.00-0.50) K/uL Baso # (Auto) 0.02 (0.00-0.20) K/uL Sodium 137 (136-145) mmol/L Potassium 3.3 L (3.5-5.1) mmol/L Chloride 104 (98-107) mmol/L Carbon Dioxide 14.4 L (21.0-32.0) mmol/L BUN 8 (7-18) mg/dL Creatinine 0.62 (0.51-1.17) mg/dL Est Cr Clr Drug Dosing 165.48 mL/min Estimated GFR (MDRD) > 60 mL/min Glucose 268 H (70-99) mg/dL POC Glucose 169 H (70-99) mg/dL Calcium 8.5 (8.5-10.1) mg/dL Phosphorus 2.4 L (2.6-4.7) mg/dL Total Bilirubin 0.7 (0.2-1.0) mg/dL AST 10 L (15-37) U/L ALT 22 (12-78) U/L Alkaline Phosphatase 75 (46-116) IU/L Creatine Kinase 39 (26-308) U/L Creatine Kinase Index 4.4 H (0.0-2.5) % CK-MB (CK-2) 1.70 (0.00-3.60) ng/mL Troponin I 0.000 (0.000-0.056) ng/mL NT-Pro-B Natriuret Pep 11 (0-125) pg/mL Total Protein 5.7 L (6.4-8.2) g/dL Albumin 3.1 L (3.4-5.0) g/dL Amylase 95 (25-115) U/L Lipase 438 H (73-393) U/L Ketones 12/08/20 12/08/20 12/08/20 Range/Units 07:25 07:27 11:15 WBC (4.0-10.2) K/uL RBC (4.33-5.41) M/uL Hgb (13.1-16.8) g/dL Hct (39.0-49.0) % MCV (84.0-98.0) fL MCH (28.2-33.3) pg MCHC (31.7-36.0) g/dL RDW (11.2-14.1) % Plt Count (150-350) K/uL Neut % (Auto) (45.0-80.0) % Lymph % (Auto) (10.0-50.0) % Collin % (Auto) (2.0-14.0) % Eos % (Auto) (0.0-5.0) % Baso % (Auto) (0.0-2.0) % Neut # (Auto) (1.40-7.00) K/uL Lymph # (Auto) (0.50-3.50) K/uL Collin # (Auto) (0.00-1.00) K/uL Eos # (Auto) (0.00-0.50) K/uL Baso # (Auto) (0.00-0.20) K/uL Sodium (136-145) mmol/L Potassium (3.5-5.1) mmol/L Chloride (98-107) mmol/L Carbon Dioxide (21.0-32.0) mmol/L BUN (7-18) mg/dL Creatinine (0.51-1.17) mg/dL Est Cr Clr Drug Dosing mL/min Estimated GFR (MDRD) mL/min Glucose (70-99) mg/dL POC Glucose 250 H 215 H (70-99) mg/dL Calcium (8.5-10.1) mg/dL Phosphorus (2.6-4.7) mg/dL Total Bilirubin (0.2-1.0) mg/dL AST (15-37) U/L ALT (12-78) U/L Alkaline Phosphatase (46-116) IU/L Creatine Kinase (26-308) U/L Creatine Kinase Index (0.0-2.5) % CK-MB (CK-2) (0.00-3.60) ng/mL Troponin I (0.000-0.056) ng/mL NT-Pro-B Natriuret Pep (0-125) pg/mL Total Protein (6.4-8.2) g/dL Albumin (3.4-5.0) g/dL Amylase (25-115) U/L Lipase (73-393) U/L Ketones Small-20 mg/dl Result Diagrams: 12/08/20 07:25 05/15/21 07:25 [place] Results Last 24 hrs: Microbiology 12/06/20 12:10 Aerobic Blood Culture - Preliminary Blood - Venous - Lab Draw NO GROWTH AFTER 2 DAYS Anaerobic Blood Culture - Preliminary NO GROWTH AFTER 2 DAYS 12/06/20 12:00 Aerobic Blood Culture - Preliminary Blood - Venous NO GROWTH AFTER 2 DAYS Anaerobic Blood Culture - Preliminary NO GROWTH AFTER 2 DAYS 12/06/20 10:55 Urine Culture - Final Urine, Bladder NO GROWTH AFTER 2 DAYS 12/06/20 12:40 Stool Occult Blood (GLEN) - Final Stool / Feces Sepsis Event Note - Evaluation Sepsis Screening Result: No Definite Risk - Focused Exam Vital Signs: Vital Signs Temp Pulse Resp BP Pulse Ox 12/08/20 12:00 36.6 C 86 16 119/71 100 12/08/20 07:49 36.5 C 88 16 106/54 L 100 12/08/20 04:00 36.7 C 81 14 115/61 97 - Problem List & Annotations (1) IDDM (insulin dependent diabetes mellitus) SNOMED Code(s): 04666439 Code(s): DOS5937 - Status: Chronic Priority: High Current Visit: Yes Onset Date: 12/06/20 Annotation/Comment:: Overall good results with human regular infusion, which was discontinued in the afternoon of 12/06/2020 and changed to subcu Humalog Mix twice daily regimen with continuation of Humalog sliding scale. nutrition services worker consultation and diabetic teaching have been initiated with our oncology social work possibly able to get coupons for patient's current expensive insulin. For now the patient will be instructed on drawing Humulin Mix from a bottle with foster care social worker and pharmacy to determine what the cheapest and most reasonable therapy will be needed at discharge. Noticeably increased serum ketones this morning with patient's previous and D5 LR fluids subsequently changed to lactated Ringer's, including an additional 1 L IV bolus secondary to some mild nonsymptomatic hypotension. Clear liquid diet initiated on 12/06 with continuation of LR fluids for now. Significantly decompensated IDDM secondary to patient's financial problems and noncompliance with his home Accu-Cheks, insulin, etc. as per emergency room note. Aggressive diabetic management was initiated in the emergency room, including initial 10 unit IV bolus of Humulin regular insulin with subsequent initiation of Humulin regular infusional as per protocol. Continue to observe closely throughout this hospitalization. Patient counseled on the importance of medication compliance with oncology social work to get with the patient concerning financial services agent for his insulin, insulin supplies, etc.. In spite of patient's UTI symptoms as above initial UA is negative with urine specimen set up for culture and sensitivity and negative to this point. Note improved moderate leukocytosis with blood cultures x2 collected and high-dose IV Rocephin initiated in the emergency room thereafter. Glycosylated hemoglobin significantly elevated at 12.5%. Lactic acid level is normal. Note moderate serum ketones with only mild ketonuria on admission. Consider ABGs depending on his clinical course, although sodium bicarbonate has recently lost favor for treatment of ketoacidosis. [employer] work excuse was completed with additional work excuse at time of discharge. (2) Ketoacidosis SNOMED Code(s): 51213308 Code(s): E87.2 - ACIDOSIS Status: Acute Priority: High Current Visit: Yes Onset Date: 12/06/20 Annotation/Comment:: As above. (3) Dehydration SNOMED Code(s): 18657543 Code(s): E86.0 - DEHYDRATION Status: Acute Priority: High Current Visit: Yes Onset Date: 12/06/20 Annotation/Comment:: Moderate dehydration on admission with aggressive initial treatment in the emergency room, including 1 L IV bolus of lactated Ringer's upon patient's arrival to this facility. Continue IV hydration during this hospitalization as per previous Humulin regular infusion protocol and as above. No significant dehydration on 12/07. (4) Pancreatitis SNOMED Code(s): 60619509 Code(s): K85.90 - ACUTE PANCREATITIS WITHOUT NECROSIS OR INFECTION, UNSP Status: Acute Priority: High Current Visit: Yes Onset Date: 12/06/20 Qualifiers: Chronicity: acute Pancreatitis type: other Acute pancreatitis complication: unspecified Qualified Code(s): K85.80 - Other acute pancreatitis without necrosis or infection Annotation/Comment:: Note mild progression of his elevated lipase and amylase with CT scan of the abdomen pelvis results as above. Various therapeutic options were discussed with the patient, including transfer to [facility], however per his request hospitalization will be continued in this facility for now. Secondary to only mild pancreatitis by CT scan carefully initiate clear liquid, ADA, and heart healthy diet on 12/07 with slow progression during this hos pitalization. No NG tube therapy for now. High-dose IV Pepcid and IV Protonix given in the emergency room and was continued throughout this hospitalization. Note that the patient was n.p.o. initially during the first 24 hours. (5) Peptic reflux disease SNOMED Code(s): 537417618 Code(s): K21.9 - GASTRO-ESOPHAGEAL REFLUX DISEASE WITHOUT ESOPHAGITIS Status: Chronic Priority: Medium Current Visit: Yes Annotation/Comment:: Patient denies. Nonproblematic to this point. IV Pepcid and IV Protonix given as above. (6) Hyponatremia SNOMED Code(s): 67935097 Code(s): E87.1 - HYPO-OSMOLALITY AND HYPONATREMIA Status: Acute Priority: High Current Visit: Yes Onset Date: 12/06/20 Annotation/Comment:: Aggressive IV hydration as above with initial normalization however returned mild hyponatremia on 12/07. Continue IV fluids as above with 3% sodium chloride infusion not needed at this time. (7) Elevated CK-MB level SNOMED Code(s): 862721046 Code(s): R74.8 - ABNORMAL LEVELS OF OTHER SERUM ENZYMES Status: Acute Priority: Medium Current Visit: Yes Onset Date: 12/06/20 Annotation/Comment:: Continued mildly elevated CK MB with normal troponin I, cardiac index, and low baseline CK. No chest pain or anginal type symptoms, although some nonspecific dyspnea during the last couple days as above. No evidence of rhabdomyolysis. Continue aggressive IV hydration as above. (8) Hypophosphatemia SNOMED Code(s): 8609429 Code(s): E83.39 - OTHER DISORDERS OF PHOSPHORUS METABOLISM Status: Acute Priority: Medium Current Visit: Yes Onset Date: 12/07/20 Annotation/Comment:: Normal on admission. Oral phosphate initiated on 12/07. (9) Hyperuricemia SNOMED Code(s): 06363598 Code(s): E79.0 - HYPERURICEMIA W/O SIGNS OF INFLAM ARTHRIT AND TOPHACEOUS DIS Status: Acute Priority: Medium Current Visit: Yes Onset Date: 12/06/20 Annotation/Comment:: No previous history of gout, etc. His arthritis is otherwise stable. Observe for now. Aggressive IV hydration as above. (10) Mixed anxiety depressive disorder SNOMED Code(s): 633690961 Code(s): F41.8 - OTHER SPECIFIED ANXIETY DISORDERS Status: Acute Rina ority: Medium Current Visit: Yes Onset Date: 12/06/20 Annotation/Comment:: Borderline mixed anxiety depression disorder based on today's exam, however this may be due to his current illness. Continue to observe closely for now with no medical therapy to this point. (11) Shortened NH interval SNOMED Code(s): 81889831 Code(s): R94.31 - ABNORMAL ELECTROCARDIOGRAM [ECG] [EKG] Status: Acute Priority: Medium Current Visit: Yes Onset Date: 12/06/20 Annotation/Comment:: Nonsymptomatic. Observe for now. - Problem List Review Problem List Initiated/Reviewed/Updated: Yes - My Orders Last 24 Hours: My Active Orders 12/08/20 11:00 NS + KCl 20mEq/L [Normal Saline with 20 mEq KCl] 1,000 ml IV ASDIRECTED - Assessment Assessment:: As above - Plan Plan:: As above. Extensive precautions were given to the patient and his mother, who are in agreement with the treatment plan. The patient will require about 1-2 days of inpatient/acute care secondary to multiple health problems as above. The patient does need to establish a local primary care provider [facility] at discharge with close follow-up within 3-5 days after hospital discharge rec manny.
[2020-12-08] MEDS: Sodium Chloride 0.9% 10 ML Syringe FLUSH PRN (23:03)
[2020-12-09] MEDS: Potassium Phosphate,Mb-Db/Sodium Phosphate,Mb-Db Packet PO SCH ×2 (07:43→11:32)
[2020-12-09] MEDS: Insulin Lispro 100 Units/ML 3 ML Vial SUBCUT SCH ×4 (07:45→20:11)
[2020-12-09] MEDS: Insulin Lispro Protamine/Lispro 75-25 100 Units/ML 10 ML Vial SUBCUT SCH ×2 (07:46→17:17)
[2020-12-09] MEDS: Sodium Chloride 0.9% 10 ML Syringe FLUSH SCH ×2 (07:53→20:15)
[2020-12-09] MEDS: NS + KCl 20mEq/L 1,000 ML IV SCH (07:59)
[2020-12-09 08:30] LABS: CHLORIDE,CL 106 mmol/L (98-107); SODIUM,NA 141 mmol/L (136-145)
[2020-12-09] MEDS ORDERED: NS + KCl 20mEq/L 1,000 ML IV SCH (09:43)
[2020-12-09] MEDS: Potassium Chloride 10 MEQ Tab.ER PO SCH ×4 (09:48→18:07)
[2020-12-09] MEDS: Pantoprazole 40 MG Vial IVPUSH SCH (11:37)
[2020-12-09] MEDS: Famotidine 20 MG/2 ML SDV IVPUSH SCH (11:37)
[2020-12-09] MEDS ORDERED: Diazepam 5 MG Tab PO PRN (12:55)
--- NOTE | 2020-12-09 13:35 | PCM.PN ---
- General Info Date of Service: 12/09/20 Admission Dx/Problem (Free Text): Patient here for treatment of diabetic ketoacidosis Subjective Update: Feels improved. Better appetite. No emesis/loose stools. Functional Status: Reports: Pain Controlled, Tolerating Diet, Ambulating, Urinating. Denies: New Symptoms - Review of Systems General: Reports: Appetite (improving). Denies: Fever, Weakness, Chills, Night Sweats HEENT: Reports: No Symptoms Pulmonary: Reports: No Symptoms Cardiovascular: Reports: No Symptoms Gastrointestinal: Reports: Nausea Genitourinary: Reports: No Symptoms Musculoskeletal: Reports: No Symptoms Skin: Reports: No Symptoms Neurological: Reports: No Symptoms Psychiatric: Reports: No Symptoms - Patient Data Vitals - Most Recent: Last Vital Signs Temp 36.9 C 12/09/20 12:30 Pulse 91 12/09/20 12:30 Resp 18 12/09/20 12:30 BP 112/65 12/09/20 12:30 Pulse Ox 99 12/09/20 12:30 Weight - Most Recent: 82.372 kg I&O - Last 24 Hours: Intake & Output 12/08/20 12/09/20 12/09/20 22:59 06:59 14:59 Intake Total 980 1166 680 Balance 980 1166 680 Lab Results Last 24 Hours: Laboratory Results - last 24 hr 12/08/20 12/08/20 12/09/20 Range/Units 16:50 20:26 07:33 WBC (4.0-10.2) K/uL RBC (4.33-5.41) M/uL Hgb (13.1-16.8) g/dL Hct (39.0-49.0) % MCV (84.0-98.0) fL MCH (28.2-33.3) pg MCHC (31.7-36.0) g/dL RDW (11.2-14.1) % Plt Count (150-350) K/uL Neut % (Auto) (45.0-80.0) % Lymph % (Auto) (10.0-50.0) % [place] % (Auto) (2.0-14.0) % Eos % (Auto) (0.0-5.0) % Baso % (Auto) (0.0-2.0) % Neut # (Auto) (1.40-7.00) K/uL Lymph # (Auto) (0.50-3.50) K/uL [place] # (Auto) (0.00-1.00) K/uL Eos # (Auto) (0.00-0.50) K/uL Baso # (Auto) (0.00-0.20) K/uL Sodium (136-145) mmol/L Potassium (3.5-5.1) mmol/L Chloride (98-107) mmol/L Carbon Dioxide (21.0-32.0) mmol/L BUN (7-18) mg/dL Creatinine (0.51-1.17) mg/dL Est Cr Clr Drug Dosing mL/min Estimated GFR (MDRD) mL/min Glucose (70-99) mg/dL POC Glucose 212 H 190 H 175 H (70-99) mg/dL Calcium (8.5-10.1) mg/dL Phosphorus (2.6-4.7) mg/dL Total Bilirubin (0.2-1.0) mg/dL AST (15-37) U/L ALT (12-78) U/L Alkaline Phosphatase (46-116) IU/L Total Protein (6.4-8.2) g/dL Albumin (3.4-5.0) g/dL Amylase (25-115) U/L Lipase (73-393) U/L 12/09/20 12/09/20 12/09/20 Range/Units 07:55 07:55 07:55 WBC 4.7 (4.0-10.2) K/uL RBC 4.87 (4.33-5.41) M/uL Hgb 14.3 (13.1-16.8) g/dL Hct 37.6 L (39.0-49.0) % MCV 77.2 L (84.0-98.0) fL MCH 29.4 (28.2-33.3) pg MCHC 38.0 H (31.7-36.0) g/dL RDW 13.6 (11.2-14.1) % Plt Count 205 (150-350) K/uL Neut % (Auto) 42.5 L (45.0-80.0) % Lymph % (Auto) 48.2 (10.0-50.0) % [place] % (Auto) 7.8 (2.0-14.0) % Eos % (Auto) 1.3 (0.0-5.0) % Baso % (Auto) 0.2 (0.0-2.0) % Neut # (Auto) 2.01 (1.40-7.00) K/uL Lymph # (Auto) 2.28 (0.50-3.50) K/uL [place] # (Auto) 0.37 (0.00-1.00) K/uL Eos # (Auto) 0.06 (0.00-0.50) K/uL Baso # (Auto) 0.01 (0.00-0.20) K/uL Sodium 141 (136-145) mmol/L Potassium 3.0 L (3.5-5.1) mmol/L Chloride 106 (98-107) mmol/L Carbon Dioxide 18.2 L (21.0-32.0) mmol/L BUN 6 L (7-18) mg/dL Creatinine 0.56 (0.51-1.17) mg/dL Est Cr Clr Drug Dosing 183.21 mL/min Estimated GFR (MDRD) > 60 mL/min Glucose 189 H (70-99) mg/dL POC Glucose (70-99) mg/dL Calcium 8.2 L (8.5-10.1) mg/dL Phosphorus (2.6-4.7) mg/dL Total Bilirubin 0.8 (0.2-1.0) mg/dL AST 9 L (15-37) U/L ALT 19 (12-78) U/L Alkaline Phosphatase 71 (46-116) IU/L Total Protein 5.6 L (6.4-8.2) g/dL Albumin 3.1 L (3.4-5.0) g/dL Amylase 43 (25-115) U/L Lipase 189 (73-393) U/L 12/09/20 12/09/20 Range/Units 07:55 11:31 WBC (4.0-10.2) K/uL RBC (4.33-5.41) M/uL Hgb (13.1-16.8) g/dL Hct (39.0-49.0) % MCV (84.0-98.0) fL MCH (28.2-33.3) pg MCHC (31.7-36.0) g/dL RDW (11.2-14.1) % Plt Count (150-350) K/uL Neut % (Auto) (45.0-80.0) % Lymph % (Auto) (10.0-50.0) % [place] % (Auto) (2.0-14.0) % Eos % (Auto) (0.0-5.0) % Baso % (Auto) (0.0-2.0) % Neut # (Auto) (1.40-7.00) K/uL Lymph # (Auto) (0.50-3.50) K/uL [place] # (Auto) (0.00-1.00) K/uL Eos # (Auto) (0.00-0.50) K/uL Baso # (Auto) (0.00-0.20) K/uL Sodium (136-145) mmol/L Potassium (3.5-5.1) mmol/L Chloride (98-107) mmol/L Carbon Dioxide (21.0-32.0) mmol/L BUN (7-18) mg/dL Creatinine (0.51-1.17) mg/dL Est Cr Clr Drug Dosing mL/min Estimated GFR (MDRD) mL/min Glucose (70-99) mg/dL POC Glucose 164 H (70-99) mg/dL Calcium (8.5-10.1) mg/dL Phosphorus 3.5 (2.6-4.7) mg/dL Total Bilirubin (0.2-1.0) mg/dL AST (15-37) U/L ALT (12-78) U/L Alkaline Phosphatase (46-116) IU/L Total Protein (6.4-8.2) g/dL Albumin (3.4-5.0) g/dL Amylase (25-115) U/L Lipase (73-393) U/L [place] Results Last 24 Hours: Microbiology 12/06/20 12:10 Aerobic Blood Culture - Preliminary Blood - Venous - Lab Draw NO GROWTH AFTER 3 DAYS Anaerobic Blood Culture - Preliminary NO GROWTH AFTER 3 DAYS 12/06/20 12:00 Aerobic Blood Culture - Preliminary Blood - Venous NO GROWTH AFTER 3 DAYS Anaerobic Blood Culture - Preliminary NO GROWTH AFTER 3 DAYS 12/06/20 10:55 Urine Culture - Final Urine, Bladder NO GROWTH AFTER 2 DAYS Med Orders - Current: Current Medications Acetaminophen (Acetaminophen 325 Mg Tab) 650 mg PO Q4H PRN PRN Reason: Pain Dextrose/Water (50% Dextrose In Water 50 Ml Syringe) 50 ml IV ASDIRECTED PRN PRN Reason: Hypoglycemia Diazepam (Diazepam 5 Mg Tab) 5 mg PO BID PRN PRN Reason: Spasms Famotidine (Famotidine 20 Mg/2 Ml Sdv) 20 mg IVPUSH DAILY [facility] Glucagon (Glucagon,Human Recombinant 1 Mg Vial) 1 mg IM ASDIRECTED PRN PRN Reason: Hypoglycemia Potassium Chloride/Sodium Chloride (Normal Saline With 20 Meq Kcl) 1,000 mls @ 60 mls/hr IV ASDIRECTED [facility] Insulin Human Lispro (Insulin Lispro 100 Units/Ml 3 Ml Vial) 0 unit SUBCUT QIDACANDBED [facility]; Protocol Last Admin: 12/09/20 11:38 Dose: 2 units Documented by: Insulin Lispro Protam/Lispro Human (Insulin Lispro Protamine/Lispro 75-25 100 Units/Ml 10 Ml Vial) 14 unit SUBCUT BIDAC [facility] Last Admin: 12/09/20 07:46 Dose: 14 units Documented by: Ketorolac Tromethamine (Ketorolac 15 Mg/Ml Sdv) 15 mg IVPUSH Q6H PRN PRN Reason: Pain (severe 7-10) Ondansetron HCl (Ondansetron 4 Mg/2 Ml Sdv) 4 mg IVPUSH Q6H PRN PRN Reason: Nausea/Vomiting Last Admin: 12/06/20 16:26 Dose: 4 mg Documented by: Pantoprazole Sodium (Pantoprazole 40 Mg Vial) 40 mg IVPUSH DAILY [facility] Potassium Chloride (Potassium Chloride 10 Meq Tab.Er) 20 meq PO Q3H [facility] Stop: 12/09/20 18:31 Last Admin: 12/09/20 12:38 Dose: 20 meq Documented by: Sodium Chloride (Sodium Chloride 0.9% 10 Ml Syringe) 10 ml FLUSH ASDIRECTED PRN PRN Reason: Keep Vein Open Last Admin: 12/08/20 23:03 Dose: 10 ml Documented by: Sodium Chloride (Sodium Chloride 0.9% 10 Ml Syringe) 10 ml FLUSH ASDIRECTED PRN PRN Reason: Keep Vein Open Last Admin: 12/06/20 19:55 Dose: 10 ml Documented by: Sodium Chloride (Sodium Chloride 0.9% 10 Ml Syringe) 10 ml FLUSH Q12HR [facility] Last Admin: 12/09/20 07:53 Dose: 10 ml Documented by: Discontinued Medications Ceftriaxone Sodium (Ceftriaxone 2 Gm Vial) 2 gm IVPUSH ONETIME ONE Stop: 12/06/20 11:25 Last Admin: 12/06/20 11:31 Dose: 2 gm Documented by: Dextrose/Water (50% Dextrose In Water 50 Ml Syringe) 50 ml IV ASDIRECTED PRN PRN Reason: Hypoglycemia Dextrose/Water (50% Dextrose In Water 50 Ml Syringe) 50 ml IV ASDIRECTED PRN PRN Reason: Hypoglycemia Dextrose/Water (50% Dextrose In Water 50 Ml Syringe) 50 ml IV ASDIRECTED PRN PRN Reason: Hypoglycemia Dextrose/Water (50% Dextrose In Water 50 Ml Syringe) 50 ml IV ASDIRECTED PRN PRN Reason: Hypoglycemia Diazepam (Diazepam 10 Mg/2 Ml Syringe) 2.5 mg IVPUSH ONETIME ONE Stop: 12/06/20 16:54 Last Admin: 12/06/20 17:49 Dose: 2.5 mg Documented by: Diazepam (Diazepam 5 Mg Tab) 5 mg PO TID PRN PRN Reason: Spasms Last Admin: 12/06/20 22:22 Dose: 5 mg Documented by: Diazepam (Diazepam 10 Mg/2 Ml Syringe) Confirm Administered Dose 10 mg .ROUTE .STK-MED ONE Stop: 12/06/20 17:43 Last Admin: 12/06/20 18:19 Dose: Not Given Documented by: Famotidine (Famotidine 20 Mg/2 Ml Sdv) 40 mg IVPUSH ONETIME ONE Stop: 12/06/20 11:30 Last Admin: 12/06/20 11:36 Dose: 40 mg Documented by: Famotidine (Famotidine 20 Mg/2 Ml Sdv) 20 mg IVPUSH Q12H [facility] Last Admin: 12/09/20 11:37 Dose: 20 mg Documented by: Glucagon (Glucagon,Human Recombinant 1 Mg Vial) 1 mg IM ASDIRECTED PRN PRN Reason: Hypoglycemia Glucagon (Glucagon,Human Recombinant 1 Mg Vial) 1 mg IM ASDIRECTED PRN PRN Reason: Hypoglycemia Glucagon (Glucagon,Human Recombinant 1 Mg Vial) 1 mg IM ASDIRECTED PRN PRN Reason: Hypoglycemia Glucagon (Glucagon,Human Recombinant 1 Mg Vial) 1 mg IM ASDIRECTED PRN PRN Reason: Hypoglycemia Lactated Ringer's (Ringers, Lactated) 1,000 mls @ 999 mls/hr IV .BOLUS ONE Stop: 12/06/20 11:29 Last Admin: 12/06/20 10:50 Dose: 999 mls/hr Documented by: Insulin Human Regular 100 unit (/ Sodium Chloride) 100 mls @ 8.029 mls/hr IV TITRATE [facility]; Protocol Last Admin: 12/06/20 12:06 Dose: 0.1 units/kg/hr, 8.029 mls/hr Documented by: Lactated Ringer's (Ringers, Lactated) 1,000 mls @ 999 mls/hr IV .BOLUS ONE Stop: 12/06/20 13:21 Last Admin: 12/06/20 12:25 Dose: 999 mls/hr Documented by: Lactated Ringer's (Ringers, Lactated) 1,000 mls @ 150 mls/hr IV ASDIRECTED [facility] Last Admin: 12/06/20 13:40 Dose: 150 mls/hr Documented by: Ceftriaxone Sodium 1 gm/ (Sodium Chloride) 100 mls @ 200 mls/hr IV Q12H [facility] Last Admin: 12/08/20 14:53 Dose: Not Given Documented by: Dextrose/Lactated Ringer's (Dextrose 5%-Lactated Ringers) 1,000 mls @ 125 mls/hr IV ASDIRECTED [facility] Last Admin: 12/07/20 09:18 Dose: 125 mls/hr Documented by: Lactated Ringer's (Ringers, Lactated) 1,000 mls @ 999 mls/hr IV .BOLUS ONE Stop: 12/07/20 10:36 Last Admin: 12/07/20 09:46 Dose: 999 mls/hr Documented by: Lactated Ringer's (Ringers, Lactated) 1,000 mls @ 150 mls/hr IV ASDIRECTED [facility] Last Admin: 12/08/20 03:19 Dose: 150 mls/hr Documented by: Potassium Chloride/Sodium Chloride (Normal Saline With 20 Meq Kcl) 1,000 mls @ 100 mls/hr IV ASDIRECTED [facility] Last Admin: 12/09/20 07:59 Dose: 100 mls/hr Documented by: Insulin Human Lispro (Insulin Lispro 100 Units/Ml 3 Ml Vial) 0 unit SUBCUT Q6H [facility]; Protocol Last Admin: 12/07/20 11:06 Dose: 6 units Documented by: Insulin Human Lispro (Insulin Lispro 100 Units/Ml 3 Ml Vial) 0 unit SUBCUT Q6H [facility]; Protocol Last Admin: 12/07/20 22:45 Dose: 4 units Documented by: Insulin Human Regular (Insulin Regular, Human 100 Units/Ml 3 Ml Vial) 10 unit IV ONETIME ONE Stop: 12/06/20 11:27 Last Admin: 12/06/20 11:38 Dose: 10 unit Documented by: Insulin Lispro Protam/Lispro Human (Insulin Lispro Protamine/Lispro 75-25 100 Units/Ml 10 Ml Vial) 4 unit SUBCUT ONETIME ONE Stop: 12/06/20 18:00 Last Admin: 12/06/20 18:19 Dose: 4 units Documented by: Insulin Lispro Protam/Lispro Human (Insulin Lispro Protamine/Lispro 75-25 100 Units/Ml 10 Ml Vial) Confirm Administered Dose 1,000 unit .ROUTE .STK-MED ONE Stop: 12/06/20 18:14 Last Admin: 12/06/20 18:22 Dose: Not Given Documented by: Insulin Lispro Protam/Lispro Human (Insulin Lispro Protamine/Lispro 75-25 100 Units/Ml 10 Ml Vial) 10 unit SUBCUT Q12HR [facility] Last Admin: 12/07/20 19:33 Dose: 10 unit Documented by: Insulin Lispro Protam/Lispro Human (Insulin Lispro Protamine/Lispro 75-25 100 Units/Ml 10 Ml Vial) 14 unit SUBCUT BIDAC ONE Stop: 12/08/20 07:31 Iopamidol (Iopamidol 612 Mg/Ml 100 Ml Bottle) 100 ml IVPUSH ONETIME STA Stop: 12/07/20 09:47 Last Admin: 12/07/20 10:40 Dose: 100 ml Documented by: Ketorolac Tromethamine (Ketorolac 30 Mg/Ml Sdv) 30 mg IVPUSH ONETIME ONE Stop: 12/06/20 16:54 Last Admin: 12/06/20 17:25 Dose: 30 mg Documented by: Ketorolac Tromethamine (Ketorolac 30 Mg/Ml Sdv) Confirm Administered Dose 30 mg .ROUTE .STK-MED ONE Stop: 12/06/20 17:16 Last Admin: 12/06/20 18:19 Dose: Not Given Documented by: Pantoprazole Sodium (Pantoprazole 40 Mg Vial) 40 mg IVPUSH ONETIME ONE Stop: 12/06/20 11:30 Last Admin: 12/06/20 11:37 Dose: 40 mg Documented by: Pantoprazole Sodium (Pantoprazole 40 Mg Vial) 40 mg IVPUSH Q12H RAMIRO Last Admin: 12/09/20 11:37 Dose: 40 mg Documented by: Potassium Chloride (Potassium Chloride 20 Meq Tab.Er) 20 meq PO ONETIME ONE Stop: 12/06/20 18:04 Last Admin: 12/06/20 18:24 Dose: 20 meq Documented by: Potassium Phos/Sodium Phos (Potassium Phosphate,Mb-Db/Sodium Phosphate,Mb-Db Packet) 1 each PO QID RAMRIO Potassium Phos/Sodium Phos (Potassium Phosphate,Mb-Db/Sodium Phosphate,Mb-Db Packet) 1 each PO QID RAMIRO Last Admin: 12/09/20 11:32 Dose: 1 each Documented by: Temazepam (Temazepam 15 Mg Cap) 15 mg PO DAILY@1999 PRN PRN Reason: Insomnia - Exam General: Alert, Oriented, Cooperative, No Acute Distress HEENT: Pupils Equal, Pupils Reactive, EOMI, Mucous Membr. Moist/[place] Neck: Supple Lungs: Clear to Auscultation, Normal Respiratory Effort Cardiovascular: Regular Rate, Regular Rhythm GI/Abdominal Exam: Soft, Non-Tender, No Distention, Abnormal Bowel Sounds (diminished throughout) Back Exam: No: CVA Tenderness (L), CVA Tenderness (R), Muscle Spasm Extremities: Normal Inspection, Normal Capillary Refill Skin: Warm, Dry Neurological: No New Focal Deficit Psy/Mental Status: Alert, Normal Affect, Normal Mood - Patient Data Lab Results Last 24 hrs: Laboratory Results - last 24 hr 12/08/20 12/08/20 12/09/20 Range/Units 16:50 20:26 07:33 WBC (4.0-10.2) K/uL RBC (4.33-5.41) M/uL Hgb (13.1-16.8) g/dL Hct (39.0-49.0) % MCV (84.0-98.0) fL MCH (28.2-33.3) pg MCHC (31.7-36.0) g/dL RDW (11.2-14.1) % Plt Count (150-350) K/uL Neut % (Auto) (45.0-80.0) % Lymph % (Auto) (10.0-50.0) % [place] % (Auto) (2.0-14.0) % Eos % (Auto) (0.0-5.0) % Baso % (Auto) (0.0-2.0) % Neut # (Auto) (1.40-7.00) K/uL Lymph # (Auto) (0.50-3.50) K/uL [place] # (Auto) (0.00-1.00) K/uL Eos # (Auto) (0.00-0.50) K/uL Baso # (Auto) (0.00-0.20) K/uL Sodium (136-145) mmol/L Potassium (3.5-5.1) mmol/L Chloride (98-107) mmol/L Carbon Dioxide (21.0-32.0) mmol/L BUN (7-18) mg/dL Creatinine (0.51-1.17) mg/dL Est Cr Clr Drug Dosing mL/min Estimated GFR (MDRD) mL/min Glucose (70-99) mg/dL POC Glucose 212 H 190 H 175 H (70-99) mg/dL Calcium (8.5-10.1) mg/dL Phosphorus (2.6-4.7) mg/dL Total Bilirubin (0.2-1.0) mg/dL AST (15-37) U/L ALT (12-78) U/L Alkaline Phosphatase (46-116) IU/L Total Protein (6.4-8.2) g/dL Albumin (3.4-5.0) g/dL Amylase (25-115) U/L Lipase (73-393) U/L 12/09/20 12/09/20 12/09/20 Range/Units 07:55 07:55 07:55 WBC 4.7 (4.0-10.2) K/uL RBC 4.87 (4.33-5.41) M/uL Hgb 14.3 (13.1-16.8) g/dL Hct 37.6 L (39.0-49.0) % MCV 77.2 L (84.0-98.0) fL MCH 29.4 (28.2-33.3) pg MCHC 38.0 H (31.7-36.0) g/dL RDW 13.6 (11.2-14.1) % Plt Count 205 (150-350) K/uL Neut % (Auto) 42.5 L (45.0-80.0) % Lymph % (Auto) 48.2 (10.0-50.0) % [place] % (Auto) 7.8 (2.0-14.0) % Eos % (Auto) 1.3 (0.0-5.0) % Baso % (Auto) 0.2 (0.0-2.0) % Neut # (Auto) 2.01 (1.40-7.00) K/uL Lymph # (Auto) 2.28 (0.50-3.50) K/uL [place] # (Auto) 0.37 (0.00-1.00) K/uL Eos # (Auto) 0.06 (0.00-0.50) K/uL Baso # (Auto) 0.01 (0.00-0.20) K/uL Sodium 141 (136-145) mmol/L Potassium 3.0 L (3.5-5.1) mmol/L Chloride 106 (98-107) mmol/L Carbon Dioxide 18.2 L (21.0-32.0) mmol/L BUN 6 L (7-18) mg/dL Creatinine 0.56 (0.51-1.17) mg/dL Est Cr Clr Drug Dosing 183.21 mL/min Estimated GFR (MDRD) > 60 mL/min Glucose 189 H (70-99) mg/dL POC Glucose (70-99) mg/dL Calcium 8.2 L (8.5-10.1) mg/dL Phosphorus (2.6-4.7) mg/dL Total Bilirubin 0.8 (0.2-1.0) mg/dL AST 9 L (15-37) U/L ALT 19 (12-78) U/L Alkaline Phosphatase 71 (46-116) IU/L Total Protein 5.6 L (6.4-8.2) g/dL Albumin 3.1 L (3.4-5.0) g/dL Amylase 43 (25-115) U/L Lipase 189 (73-393) U/L 12/09/20 12/09/20 Range/Units 07:55 11:31 WBC (4.0-10.2) K/uL RBC (4.33-5.41) M/uL Hgb (13.1-16.8) g/dL Hct (39.0-49.0) % MCV (84.0-98.0) fL MCH (28.2-33.3) pg MCHC (31.7-36.0) g/dL RDW (11.2-14.1) % Plt Count (150-350) K/uL Neut % (Auto) (45.0-80.0) % Lymph % (Auto) (10.0-50.0) % [place] % (Auto) (2.0-14.0) % Eos % (Auto) (0.0-5.0) % Baso % (Auto) (0.0-2.0) % Neut # (Auto) (1.40-7.00) K/uL Lymph # (Auto) (0.50-3.50) K/uL [place] # (Auto) (0.00-1.00) K/uL Eos # (Auto) (0.00-0.50) K/uL Baso # (Auto) (0.00-0.20) K/uL Sodium (136-145) mmol/L Potassium (3.5-5.1) mmol/L Chloride (98-107) mmol/L Carbon Dioxide (21.0-32.0) mmol/L BUN (7-18) mg/dL Creatinine (0.51-1.17) mg/dL Est Cr Clr Drug Dosing mL/min Estimated GFR (MDRD) mL/min Glucose (70-99) mg/dL POC Glucose 164 H (70-99) mg/dL Calcium (8.5-10.1) mg/dL Phosphorus 3.5 (2.6-4.7) mg/dL Total Bilirubin (0.2-1.0) mg/dL AST (15-37) U/L ALT (12-78) U/L Alkaline Phosphatase (46-116) IU/L Total Protein (6.4-8.2) g/dL Albumin (3.4-5.0) g/dL Amylase (25-115) U/L Lipase (73-393) U/L Result Diagrams: 12/09/20 07:55 12/09/20 07:55 [place] Results Last 24 hrs: Microbiology 12/06/20 12:10 Aerobic Blood Culture - Preliminary Blood - Venous - Lab Draw NO GROWTH AFTER 3 DAYS Anaerobic Blood Culture - Preliminary NO GROWTH AFTER 3 DAYS 12/06/20 12:00 Aerobic Blood Culture - Preliminary Blood - Venous NO GROWTH AFTER 3 DAYS Anaerobic Blood Culture - Preliminary NO GROWTH AFTER 3 DAYS 12/06/20 10:55 Urine Culture - Final Urine, Bladder NO GROWTH AFTER 2 DAYS Sepsis Event Note - Evaluation Sepsis Screening Result: No Definite Risk - Focused Exam Vital Signs: Vital Signs Temp Pulse Resp BP Pulse Ox 12/09/20 12:30 36.9 C 91 18 112/65 99 12/09/20 08:00 36.5 C 91 16 122/66 98 12/09/20 04:00 37.0 C 92 14 127/67 97 - Problem List & Annotations (1) IDDM (insulin dependent diabetes mellitus) SNOMED Code(s): 44784106 Code(s): AFJ2881 - Status: Chronic Priority: High Current Visit: Yes Onset Date: 12/06/20 Annotation/Comment:: Overall good results with human regular infusion, which was discontinued in the afternoon of 12/06/2020 and changed to subcu Humalog Mix twice daily regimen with continuation of Humalog sl iding scale. human services worker consultation and diabetic teaching have been initiated with our health care social worker possibly able to get coupons for patient's current expensive insulin. For now the patient will be instructed on drawing Humulin Mix from a bottle with clinical social work aide and pharmacy to determine what the cheapest and most reasonable therapy will be needed at discharge. Noticeably increased serum ketones this morning with patient's previous and D5 LR fluids subsequently changed to lactated Ringer's, including an additional 1 L IV bolus secondary to some mild nonsymptomatic hypotension. Clear liquid diet initiated on 12/06 with diet now being advanced as tolerated. Significantly decompensated IDDM secondary to patient's financial problems and noncompliance with his home Accu-Cheks, insulin, etc. as per emergency room note. Aggressive diabetic management was initiated in the emergency room, including initial 10 unit IV bolus of Humulin regular insulin with subsequent initiation of Humulin regular infusional as per protocol. Continue to observe closely throughout this hospitalization. Patient counseled on the importance of medication compliance with health care social worker to get with the patient concerning patient financial services specialist for his insulin, insulin supplies, etc.. In spite of patient's UTI symptoms as above initial UA is negative with urine specimen set up for culture and sensitivity and negative to this point. Note improved moderate leukocytosis with blood cultures x2 collected and high-dose IV Rocephin initiated in the emergency room thereafter. Glycosylated hemoglobin significantly elevated at 12.5%. Lactic acid level is normal. Note moderate serum ketones with only mild ketonuria on admission. Consider ABGs depending on his clinical course, although sodium bicarbonate has recently lost favor for treatment of ketoacidosis. [place] work excuse was completed with additional work excuse at time of discharge. (2) Ketoacidosis SNOMED Code(s): 47586713 Code(s): E87.2 - ACIDOSIS Status: Acute Priority: High Current Visit: Yes Onset Date: 12/06/20 Annotation/Comment:: As above. (3) Hypokalemia SNOMED Code(s): 25170692 Code(s): E87.6 - HYPOKALEMIA Status: Acute Priority: Medium Current Visit: Yes Annotation/Comment:: Noted to drop to 3.0 today despite being given IV fluids with K and K mixed in with phosporus. Additional oral potassium added. Recheck level in 12 hours. (4) Dehydration SNOMED Code(s): 76748083 Code(s): E86.0 - DEHYDRATION Status: Acute Priority: High Current Visit: Yes Onset Date: 12/06/20 Annotation/Comment:: Moderate dehydration on admission with aggressive initial treatment in the emergency room, including 1 L IV bolus of lactated Ringer's upon patient's arrival to this facility. Continue IV hydration during this hospitalization as per previous Humulin regular infusion protocol and as above. No significant dehydration on 12/07. (5) Pancreatitis SNOMED Code(s): 29193421 Code(s): K85.90 - ACUTE PANCREATITIS WITHOUT NECROSIS OR INFECTION, UNSP Status: Acute Priority: High Current Visit: Yes Onset Date: 12/06/20 Qualifiers: Chronicity: acute Pancreatitis type: other Acute pancreatitis complic ation: unspecified Qualified Code(s): K85.80 - Other acute pancreatitis without necrosis or infection Annotation/Comment:: Improved. Amylase and Lipase normalized. (6) Peptic reflux disease SNOMED Code(s): 657843157 Code(s): K21.9 - GASTRO-ESOPHAGEAL REFLUX DISEASE WITHOUT ESOPHAGITIS Status: Chronic Priority: Medium Current Visit: Yes Annotation/Comment:: Patient denies. Nonproblematic to this point. IV Pepcid and IV Protonix given as above. (7) Hyponatremia SNOMED Code(s): 64410459 Code(s): E87.1 - HYPO-OSMOLALITY AND HYPONATREMIA Status: Acute Priority: High Current Visit: Yes Onset Date: 12/06/20 Annotation/Comment:: Aggressive IV hydration as above with initial normalization however returned mild hyponatremia on 12/07. Continue IV fluids as above with 3% sodium chloride infusion not needed at this time. (8) Elevated CK-MB level SNOMED Code(s): 310494561 Code(s): R74.8 - ABNORMAL LEVELS OF OTHER SERUM ENZYMES Status: Acute Priority: Medium Current Visit: Yes Onset Date: 12/06/20 Annotation/Comment:: Continued mildly elevated CK MB with normal troponin I, cardiac index, and low baseline CK. No chest pain or anginal type symptoms, although some nonspecific dyspnea during the last couple days as above. No evidence of rhabdomyolysis. Continue aggressive IV hydration as above. (9) Hypophosphatemia SNOMED Code(s): 8910162 Code(s): E83.39 - OTHER DISORDERS OF PHOSPHORUS METABOLISM Status: Acute Priority: Medium Current Visit: Yes Onset Date: 12/07/20 Annotation/Comment:: Normal on admission. Oral phosphate initiated on 12/07. Normalized on 12/09 (10) Hyperuricemia SNOMED Code(s): 09959977 Code(s): E79.0 - HYPERURICEMIA W/O SIGNS OF INFLAM ARTHRIT AND TOPHACEOUS DIS Status: Acute Priority: Medium Current Visit: Yes Onset Date: 12/06/20 Annotation/Comment:: No previous history of gout, etc. His arthritis is otherwise stable. Observe for now. Aggressive IV hydration as above. (11) Mixed anxiety depressive disorder SNOMED Code(s): 951253574 Code(s): F41.8 - OTHER SPECIFIED ANXIETY DISORDERS Status: Acute Priority: Medium Current Visit: Yes Onset Date: 12/06/20 Annotation/Comment:: Borderline mixed anxiety depression disorder based on today's exam, however this may be due to his current illness. Continue to observe closely for now with no medical therapy to this point. (12) Shortened NH interval SNOMED Code(s): 93738433 Code(s): R94.31 - ABNORMAL ELECTROCARDIOGRAM [ECG] [EKG] Status: Acute Priority: Medium Current Visit: Yes Onset Date: 12/06/20 Annotation/Comment:: Nonsymptomatic. Observe for now. - Problem List Review Problem List Initiated/Reviewed/Updated: Yes - My Orders Last 24 Hours: My Active Orders 12/09/20 09:30 Potassium Chloride [Klor-Con 10] 20 meq PO Q3H 12/09/20 09:43 NS + KCl 20mEq/L [Normal Saline with 20 mEq KCl] 1,000 ml IV ASDIRECTED 12/09/20 Lunch ADA Diabetic [[employer] Diet] [DIET] 12/09/20 12:55 diazePAM [Valium.] 5 mg PO BID PRN 12/09/20 20:00 BASIC METABOLIC PANEL,BMP [CHEM] Routine 12/10/20 08:00 Famotidine [Pepcid] 20 mg IVPUSH DAILY Pantoprazole [ProTONIX IV] 40 mg IVPUSH DAILY - Assessment Assessment:: As above - Plan Plan:: As above. Extensive precautions were given to the patient and his mother, who are in agreement with the treatment plan. Additional day of inpatient care due to continued lowering of potassium in addition to plans to have clinical social work aide consult tomorrow to look into best options for affordable insulin for patient. The patient does need to establish a local primary care provider [facility] at discharge with close follow-up within 3-5 days after hospital discharge recommended.
[2020-12-09 20:07] LABS: CHLORIDE,CL 107 mmol/L (98-107); SODIUM,NA 140 mmol/L (136-145)
[2020-12-10 07:25] LABS: CHLORIDE,CL 105 mmol/L (98-107); SODIUM,NA 140 mmol/L (136-145)
[2020-12-10] MEDS: Insulin Lispro Protamine/Lispro 75-25 100 Units/ML 10 ML Vial SUBCUT SCH (07:34)
[2020-12-10] MEDS: Insulin Lispro 100 Units/ML 3 ML Vial SUBCUT SCH ×2 (07:37→11:27)
[2020-12-10] MEDS: Sodium Chloride 0.9% 10 ML Syringe FLUSH SCH (07:41)
[2020-12-10] MEDS ORDERED: Famotidine 20 MG/2 ML SDV IVPUSH SCH (08:00)
[2020-12-10] MEDS ORDERED: Pantoprazole 40 MG Vial IVPUSH SCH (08:00)
[2020-12-10 11:36] VITALS: BP 117/79; PULSE 88
--- NOTE | 2020-12-10 12:22 | PCM.DCSUM1 ---
Discharge Summary - Hospital Course Brief History: Patient admitted for treatment of DKA. Also noted to be noncompliant with ideal insulin treatment of his diabetes due to financial issues affording prescribed insulin therapy. Diagnosis: Stroke: No - Discharge Data Discharge Date: 12/10/20 Discharge Disposition: Home, Self-Care 01 Condition: Good - Referral to Home Health Primary Care Physician: Shani Yi NP - Discharge Diagnosis/Problem(s) (1) IDDM (insulin dependent diabetes mellitus) SNOMED Code(s): 65555035 ICD Code: [id number] - Status: Chronic Priority: High Current Visit: Yes Onset Date: 12/06/20 Problem Details: Ketoacidosis treated successfully. Tolerating food over last 24 hours well. Nursing staff worked with patient over weekend in regards to monitoring blood sugars and injecting from vials of insulin. There is some concern that pt may be a bit overwhelmed with micromanaging his diabetes care. Pharmacy/medical social worker did come up with alternative insulin regimen that will be better covered by his insurance at time of discharge that involves generic glargine lantus and Novalog. Follow up appointment with clinic arranged for of this week. Diet changes, close blood sugar monitoring,and continued close follow up encouraged at time of discharge. (2) Ketoacidosis SNOMED Code(s): 41479639 ICD Code: E87.2 - ACIDOSIS Status: Acute Priority: High Current Visit: Yes Onset Date: 12/06/20 Problem Details: As above. (3) Hypokalemia SNOMED Code(s): 14585407 ICD Code: E87.6 - HYPOKALEMIA Status: Acute Priority: Medium Current Visit: Yes Problem Details: Normalized today (4) Dehydration SNOMED Code(s): 72716727 ICD Code: E86.0 - DEHYDRATION Status: Acute Priority: High Current Visit: Yes Onset Date: 12/06/20 Problem Details: Moderate dehydration on admission with aggressive initial treatment in the emergency room, including 1 L IV bolus of lactated Ringer's upon patient's arrival to this facility. (5) Pancreatitis SNOMED Code(s): 01545495 ICD Code: K85.90 - ACUTE PANCREATITIS WITHOUT NECROSIS OR INFECTION, UNSP Status: Acute Priority: High Current Visit: Yes Onset Date: 12/06/20 Problem Details: Improved. Amylase and Lipase normalized. Qualifiers: Chronicity: acute Pancreatitis type: other Acute pancreatitis complication: unspecified Qualified Code(s): K85.80 - Other acute pancreatitis without necrosis or infection (6) Peptic reflux disease SNOMED Code(s): 695403670 ICD Code: K21.9 - GASTRO-ESOPHAGEAL REFLUX DISEASE WITHOUT ESOPHAGITIS Status: Chronic Priority: Medium Current Visit: Yes Problem Details: Patient denies. Nonproblematic to this point. IV Pepcid and IV Protonix given as above. (7) Hyponatremia SNOMED Code(s): 80612083 ICD Code: E87.1 - HYPO-OSMOLALITY AND HYPONATREMIA Status: Acute Priority: High Current Visit: Yes Onset Date: 12/06/20 Problem Details: Aggressive IV hydration as above with initial normalization however returned mild hyponatremia on 12/07. Continue IV fluids as above with 3% sodium chloride infusion not needed at this time. (8) Elevated CK-MB level SNOMED Code(s): 634560966 ICD Code: R74.8 - ABNORMAL LEVELS OF OTHER SERUM ENZYMES Status: Acute Priority: Medium Current Visit: Yes Onset Date: 12/06/20 Problem Details: Mild elevated CK MB with normal troponin I, cardiac index, and low baseline CK. No chest pain or anginal type symptoms, although some nonspecific dyspnea during the last couple days as above. (9) Hypophosphatemia SNOMED Code(s): 8198698 ICD Code: E83.39 - OTHER DISORDERS OF PHOSPHORUS METABOLISM Status: Acute Priority: Medium Current Visit: Yes Onset Date: 12/07/20 Problem Details: Normal on admission. Oral phosphate initiated on 12/07. Normalized on 12/09 (10) Hyperuricemia SNOMED Code(s): 61292730 ICD Code: E79.0 - HYPERURICEMIA W/O SIGNS OF INFLAM ARTHRIT AND TOPHACEOUS DIS Status: Acute Priority: Medium Current Visit: Yes Onset Date: 12/06/20 Problem Details: No previous history of gout, etc. His arthritis is otherwise stable. Observe for now. Aggressive IV hydration as above. (11) Mixed anxiety depressive disorder SNOMED Code(s): 146635523 ICD Code: F41.8 - OTHER SPECIFIED ANXIETY DISORDERS Status: Acute Priority: Medium Current Visit: Yes Onset Date: 12/06/20 Problem Details: Borderline mixed anxiety depression disorder based on today's exam, however this may be due to his current illness. Continue to observe closely for now with no medical therapy to this point. (12) Shortened ID interval SNOMED Code(s): 29216498 ICD Code: R94.31 - ABNORMAL ELECTROCARDIOGRAM [ECG] [EKG] Status: Acute Priority: Medium Current Visit: Yes Onset Date: 12/06/20 Problem Details: Nonsymptomatic. - Patient Summary/Data Consults: Consultations 12/06/20 12:43 Consult to Case Management/Gamer [CONS] Routine Hospital Course: As above. Patient received IV insulin/hydration and supportive treatment while blood sugars and GI complaints improved. Some abnormalities of phosphorus and potassium also addressed during stay. Tolerating food well over last 24 hours. OK to discharge home today. Will be placed on a more insurance-friendly insulin regimen which will provide significant cost savings to patient and hopefully improve compliance with diabetes care and insulin dosing. Several long conversations during stay regarding importance of being on top of his diet/blood sugar monitoring/insulin dosing. Would be good candidate for CGM/insulin pump given his brittle history. - Patient Instructions Diet: Diabetic Diet, Anti-Inflammatory, Limited Carb Activity: Apply Ice Driving: May Drive Today Showering/Bathing: May Shower Other/Special Instructions: Keep CLOSE track of your blood sugars. Check before meals and 1-2 hours after meals to see how high your blood sugars spike in order to identify foods that are driving your blood sugars too high. Follow up with clinic on at 3:30 for recheck. Discuss then if there is a way to pursue a continuous blood sugar monitor and insulin pump. We have changed your medication. You will likely need dosages tweaked over the next few weeks/months especially if you are making additional dietary adjustments. Return to ER if you have sudden worsening problems. - Discharge Plan *PRESCRIPTION DRUG MONITORING PROGRAM REVIEWED*: Not Applicable *COPY OF PRESCRIPTION DRUG MONITORING REPORT IN PATIENT FERNANDO: Not Applicable Prescriptions/Med Rec: Insulin Glargine,Hum.Rec.Anlog [Basaglar Kwikpen U-100] 20 unit SQ DAILY #1 box Insulin Aspart [NovoLOG] See Protocol SUBCUT TID #1 pen Home Medications: Home Meds Insulin Aspart [NovoLOG] See Protocol SUBCUT TID #1 pen 12/10/20 [Rx] Insulin Glargine,Hum.Rec.Anlog [Basaglar Kwikpen U-100] 20 unit SQ DAILY #1 box 12/10/20 [Rx] Forms: ED Department Discharge Referrals: Shani Yi NP [Primary Care Provider] - - Discharge Summary/Plan Comment DC Time >30 min.: No - General Info Date of Service: 12/10/20 Admission Dx/Problem (Free Text: Patient here for treatment of diabetic ketoacidosis Subjective Update: Feels back to baseline today. Tolerating food well. Appetite has returned. No acute complaints. Functional Status: Reports: Pain Controlled, Tolerating Diet, Ambulating, Urinating. Denies: New Symptoms - Review of Systems General: Reports: No Symptoms HEENT: Reports: No Symptoms Pulmonary: Reports: No Symptoms Cardiovascular: Reports: No Symptoms Gastrointestinal: Reports: No Symptoms Genitourinary: Reports: No Symptoms Musculoskeletal: Reports: No Symptoms Skin: Reports: No Symptoms Neurological: Reports: No Symptoms Psychiatric: Reports: No Symptoms - Patient Data Vitals - Most Recent: Last Vital Signs Temp 36.4 C 12/10/20 11:35 Pulse 88 12/10/20 11:35 Resp 16 12/10/20 11:35 BP 117/79 12/10/20 11:35 Pulse Ox 100 12/10/20 11:35 Weight - Most Recent: 81.42 kg I&O - Last 24 hours: Intake & Output 12/09/20 12/10/20 12/10/20 22:59 06:59 14:59 Intake Total 1645 1145 200 Balance 1645 1145 200 Lab Results - Last 24 hrs: Laboratory Results - last 24 hr 12/09/20 12/09/20 12/09/20 Range/Units 16:44 19:49 19:50 WBC (4.0-10.2) K/uL RBC (4.33-5.41) M/uL Hgb (13.1-16.8) g/dL Hct (39.0-49.0) % MCV (84.0-98.0) fL MCH (28.2-33.3) pg MCHC (31.7-36.0) g/dL RDW (11.2-14.1) % Plt Count (150-350) K/uL Neut % (Auto) (45.0-80.0) % Lymph % (Auto) (10.0-50.0) % [place] % (Auto) (2.0-14.0) % Eos % (Auto) (0.0-5.0) % Baso % (Auto) (0.0-2.0) % Neut # (Auto) (1.40-7.00) K/uL Lymph # (Auto) (0.50-3.50) K/uL [place] # (Auto) (0.00-1.00) K/uL Eos # (Auto) (0.00-0.50) K/uL Baso # (Auto) (0.00-0.20) K/uL Sodium 140 (136-145) mmol/L Potassium 3.2 L (3.5-5.1) mmol/L Chloride 107 (98-107) mmol/L Carbon Dioxide 23.2 (21.0-32.0) mmol/L BUN 7 (7-18) mg/dL Creatinine 0.56 (0.51-1.17) mg/dL Est Cr Clr Drug Dosing 183.21 mL/min Estimated GFR (MDRD) > 60 mL/min Glucose 285 H (70-99) mg/dL POC Glucose 259 H 250 H (70-99) mg/dL Calcium 8.6 (8.5-10.1) mg/dL Phosphorus (2.6-4.7) mg/dL Total Bilirubin (0.2-1.0) mg/dL AST (15-37) U/L ALT (12-78) U/L Alkaline Phosphatase (46-116) IU/L Total Protein (6.4-8.2) g/dL Albumin (3.4-5.0) g/dL 12/10/20 12/10/20 12/10/20 Range/Units 06:59 06:59 07:01 WBC 3.7 L (4.0-10.2) K/uL RBC 4.72 (4.33-5.41) M/uL Hgb 13.9 (13.1-16.8) g/dL Hct 36.9 L (39.0-49.0) % MCV 78.2 L (84.0-98.0) fL MCH 29.4 (28.2-33.3) pg MCHC 37.7 H (31.7-36.0) g/dL RDW 13.4 (11.2-14.1) % Plt Count 181 (150-350) K/uL Neut % (Auto) 37.8 L (45.0-80.0) % Lymph % (Auto) 50.4 H (10.0-50.0) % [place] % (Auto) 9.6 (2.0-14.0) % Eos % (Auto) 1.9 (0.0-5.0) % Baso % (Auto) 0.3 (0.0-2.0) % Neut # (Auto) 1.38 L (1.40-7.00) K/uL Lymph # (Auto) 1.84 (0.50-3.50) K/uL [place] # (Auto) 0.35 (0.00-1.00) K/uL Eos # (Auto) 0.07 (0.00-0.50) K/uL Baso # (Auto) 0.01 (0.00-0.20) K/uL Sodium 140 (136-145) mmol/L Potassium 3.5 (3.5-5.1) mmol/L Chloride 105 (98-107) mmol/L Carbon Dioxide 23.3 (21.0-32.0) mmol/L BUN 7 (7-18) mg/dL Creatinine 0.51 (0.51-1.17) mg/dL Est Cr Clr Drug Dosing 201.18 mL/min Estimated GFR (MDRD) > 60 mL/min Glucose 306 H (70-99) mg/dL POC Glucose 285 H (70-99) mg/dL Calcium 8.4 L (8.5-10.1) mg/dL Phosphorus 4.0 (2.6-4.7) mg/dL Total Bilirubin 0.7 (0.2-1.0) mg/dL AST 12 L (15-37) U/L ALT 21 (12-78) U/L Alkaline Phosphatase 65 (46-116) IU/L Total Protein 5.5 L (6.4-8.2) g/dL Albumin 3.0 L (3.4-5.0) g/dL 12/10/20 Range/Units 10:48 WBC (4.0-10.2) K/uL RBC (4.33-5.41) M/uL Hgb (13.1-16.8) g/dL Hct (39.0-49.0) % MCV (84.0-98.0) fL MCH (28.2-33.3) pg MCHC (31.7-36.0) g/dL RDW (11.2-14.1) % Plt Count (150-350) K/uL Neut % (Auto) (45.0-80.0) % Lymph % (Auto) (10.0-50.0) % [place] % (Auto) (2.0-14.0) % Eos % (Auto) (0.0-5.0) % Baso % (Auto) (0.0-2.0) % Neut # (Auto) (1.40-7.00) K/uL Lymph # (Auto) (0.50-3.50) K/uL [place] # (Auto) (0.00-1.00) K/uL Eos # (Auto) (0.00-0.50) K/uL Baso # (Auto) (0.00-0.20) K/uL Sodium (136-145) mmol/L Potassium (3.5-5.1) mmol/L Chloride (98-107) mmol/L Carbon Dioxide (21.0-32.0) mmol/L BUN (7-18) mg/dL Creatinine (0.51-1.17) mg/dL Est Cr Clr Drug Dosing mL/min Estimated GFR (MDRD) mL/min Glucose (70-99) mg/dL POC Glucose 310 H (70-99) mg/dL Calcium (8.5-10.1) mg/dL Phosphorus (2.6-4.7) mg/dL Total Bilirubin (0.2-1.0) mg/dL AST (15-37) U/L ALT (12-78) U/L Alkaline Phosphatase (46-116) IU/L Total Protein (6.4-8.2) g/dL Albumin (3.4-5.0) g/dL ESTHELA Results - Last 24 hrs: Microbiology 12/06/20 12:10 Aerobic Blood Culture - Preliminary Blood - Venous - Lab Draw NO GROWTH AFTER 4 DAYS Anaerobic Blood Culture - Preliminary NO GROWTH AFTER 4 DAYS 12/06/20 12:00 Aerobic Blood Culture - Preliminary Blood - Venous NO GROWTH AFTER 4 DAYS Anaerobic Blood Culture - Preliminary NO GROWTH AFTER 4 DAYS Med Orders - Current: Current Medications Acetaminophen (Acetaminophen 325 Mg Tab) 650 mg PO Q4H PRN PRN Reason: Pain Dextrose/Water (50% Dextrose In Water 50 Ml Syringe) 50 ml IV ASDIRECTED PRN PRN Reason: Hypoglycemia Diazepam (Diazepam 5 Mg Tab) 5 mg PO BID PRN PRN Reason: Spasms Famotidine (Famotidine 20 Mg/2 Ml Sdv) 20 mg IVPUSH DAILY [facility] Last Admin: 12/10/20 07:39 Dose: 20 mg Documented by: Glucagon (Glucagon,Human Recombinant 1 Mg Vial) 1 mg IM ASDIRECTED PRN PRN Reason: Hypoglycemia Potassium Chloride/Sodium Chloride (Normal Saline With 20 Meq Kcl) 1,000 mls @ 60 mls/hr IV ASDIRECTED [facility] Last Admin: 12/09/20 23:52 Dose: 60 mls/hr Documented by: Insulin Human Lispro (Insulin Lispro 100 Units/Ml 3 Ml Vial) 0 unit SUBCUT QIDACANDBED [facility]; Protocol Last Admin: 12/10/20 11:27 Dose: 8 units Documented by: Insulin Lispro Protam/Lispro Human (Insulin Lispro Protamine/Lispro 75-25 100 Units/Ml 10 Ml Vial) 14 unit SUBCUT BIDAC [facility] Last Admin: 12/10/20 07:34 Dose: 14 units Documented by: Ketorolac Tromethamine (Ketorolac 15 Mg/Ml Sdv) 15 mg IVPUSH Q6H PRN PRN Reason: Pain (severe 7-10) Ondansetron HCl (Ondansetron 4 Mg/2 Ml Sdv) 4 mg IVPUSH Q6H PRN PRN Reason: Nausea/Vomiting Last Admin: 12/06/20 16:26 Dose: 4 mg Documented by: Pantoprazole Sodium (Pantoprazole 40 Mg Vial) 40 mg IVPUSH DAILY [facility] Last Admin: 12/10/20 07:43 Dose: 40 mg Documented by: Sodium Chloride (Sodium Chloride 0.9% 10 Ml Syringe) 10 ml FLUSH ASDIRECTED PRN PRN Reason: Keep Vein Open Last Admin: 12/08/20 23:03 Dose: 10 ml Documented by: Sodium Chloride (Sodium Chloride 0.9% 10 Ml Syringe) 10 ml FLUSH ASDIRECTED PRN PRN Reason: Keep Vein Open Last Admin: 12/06/20 19:55 Dose: 10 ml Documented by: Sodium Chloride (Sodium Chloride 0.9% 10 Ml Syringe) 10 ml FLUSH Q12HR [facility] Last Admin: 12/10/20 07:41 Dose: 10 ml Documented by: Discontinued Medications Ceftriaxone Sodium (Ceftriaxone 2 Gm Vial) 2 gm IVPUSH ONETIME ONE Stop: 12/06/20 11:25 Last Admin: 12/06/20 11:31 Dose: 2 gm Documented by: Dextrose/Water (50% Dextrose In Water 50 Ml Syringe) 50 ml IV ASDIRECTED PRN PRN Reason: Hypoglycemia Dextrose/Water (50% Dextrose In Water 50 Ml Syringe) 50 ml IV ASDIRECTED PRN PRN Reason: Hypoglycemia Dextrose/Water (50% Dextrose In Water 50 Ml Syringe) 50 ml IV ASDIRECTED PRN PRN Reason: Hypoglycemia Dextrose/Water (50% Dextrose In Water 50 Ml Syringe) 50 ml IV ASDIRECTED PRN PRN Reason: Hypoglycemia Diazepam (Diazepam 10 Mg/2 Ml Syringe) 2.5 mg IVPUSH ONETIME ONE Stop: 12/06/20 16:54 Last Admin: 12/06/20 17:49 Dose: 2.5 mg Documented by: Diazepam (Diazepam 5 Mg Tab) 5 mg PO TID PRN PRN Reason: Spasms Last Admin: 12/06/20 22:22 Dose: 5 mg Documented by: Diazepam (Diazepam 10 Mg/2 Ml Syringe) Confirm Administered Dose 10 mg .ROUTE .STK-MED ONE Stop: 12/06/20 17:43 Last Admin: 12/06/20 18:19 Dose: Not Given Documented by: Famotidine (Famotidine 20 Mg/2 Ml Sdv) 40 mg IVPUSH ONETIME ONE Stop: 12/06/20 11:30 Last Admin: 12/06/20 11:36 Dose: 40 mg Documented by: Famotidine (Famotidine 20 Mg/2 Ml Sdv) 20 mg IVPUSH Q12H [facility] Last Admin: 12/09/20 11:37 Dose: 20 mg Documented by: Glucagon (Glucagon,Human Recombinant 1 Mg Vial) 1 mg IM ASDIRECTED PRN PRN Reason: Hypoglycemia Glucagon (Glucagon,Human Recombinant 1 Mg Vial) 1 mg IM ASDIRECTED PRN PRN Reason: Hypoglycemia Glucagon (Glucagon,Human Recombinant 1 Mg Vial) 1 mg IM ASDIRECTED PRN PRN Reason: Hypoglycemia Glucagon (Glucagon,Human Recombinant 1 Mg Vial) 1 mg IM ASDIRECTED PRN PRN Reason: Hypoglycemia Lactated Ringer's (Ringers, Lactated) 1,000 mls @ 999 mls/hr IV .BOLUS ONE Stop: 12/06/20 11:29 Last Admin: 12/06/20 10:50 Dose: 999 mls/hr Documented by: Insulin Human Regular 100 unit (/ Sodium Chloride) 100 mls @ 8.029 mls/hr IV TITRATE [facility]; Protocol Last Admin: 12/06/20 12:06 Dose: 0.1 units/kg/hr, 8.029 mls/hr Documented by: Lactated Ringer's (Ringers, Lactated) 1,000 mls @ 999 mls/hr IV .BOLUS ONE Stop: 12/06/20 13:21 Last Admin: 12/06/20 12:25 Dose: 999 mls/hr Documented by: Lactated Ringer's (Ringers, Lactated) 1,000 mls @ 150 mls/hr IV ASDIRECTED [facility] Last Admin: 12/06/20 13:40 Dose: 150 mls/hr Documented by: Ceftriaxone Sodium 1 gm/ (Sodium Chloride) 100 mls @ 200 mls/hr IV Q12H [facility] Last Admin: 12/08/20 14:53 Dose: Not Given Documented by: Dextrose/Lactated Ringer's (Dextrose 5%-Lactated Ringers) 1,000 mls @ 125 mls/hr IV ASDIRECTED [facility] Last Admin: 12/07/20 09:18 Dose: 125 mls/hr Documented by: Lactated Ringer's (Ringers, Lactated) 1,000 mls @ 999 mls/hr IV .BOLUS ONE Stop: 12/07/20 10:36 Last Admin: 12/07/20 09:46 Dose: 999 mls/hr Documented by: Lactated Ringer's (Ringers, Lactated) 1,000 mls @ 150 mls/hr IV ASDIRECTED [facility] Last Admin: 12/08/20 03:19 Dose: 150 mls/hr Documented by: Potassium Chloride/Sodium Chloride (Normal Saline With 20 Meq Kcl) 1,000 mls @ 100 mls/hr IV ASDIRECTED [facility] Last Admin: 12/09/20 07:59 Dose: 100 mls/hr Documented by: Insulin Human Lispro (Insulin Lispro 100 Units/Ml 3 Ml Vial) 0 unit SUBCUT Q6H [facility]; Protocol Last Admin: 12/07/20 11:06 Dose: 6 units Documented by: Insulin Human Lispro (Insulin Lispro 100 Units/Ml 3 Ml Vial) 0 unit SUBCUT Q6H [facility]; Protocol Last Admin: 12/07/20 22:45 Dose: 4 units Documented by: Insulin Human Regular (Insulin Regular, Human 100 Units/Ml 3 Ml Vial) 10 unit IV ONETIME ONE Stop: 12/06/20 11:27 Last Admin: 12/06/20 11:38 Dose: 10 unit Documented by: Insulin Lispro Protam/Lispro Human (Insulin Lispro Protamine/Lispro 75-25 100 Units/Ml 10 Ml Vial) 4 unit SUBCUT ONETIME ONE Stop: 12/06/20 18:00 Last Admin: 12/06/20 18:19 Dose: 4 units Documented by: Insulin Lispro Protam/Lispro Human (Insulin Lispro Protamine/Lispro 75-25 100 Units/Ml 10 Ml Vial) Confirm Administered Dose 1,000 unit .ROUTE .STK-MED ONE Stop: 12/06/20 18:14 Last Admin: 12/06/20 18:22 Dose: Not Given Documented by: Insulin Lispro Protam/Lispro Human (Insulin Lispro Protamine/Lispro 75-25 100 Units/Ml 10 Ml Vial) 10 unit SUBCUT Q12HR [facility] Last Admin: 12/07/20 19:33 Dose: 10 unit Documented by: Insulin Lispro Protam/Lispro Human (Insulin Lispro Protamine/Lispro 75-25 100 Units/Ml 10 Ml Vial) 14 unit SUBCUT BIDAC ONE Stop: 12/08/20 07:31 Iopamidol (Iopamidol 612 Mg/Ml 100 Ml Bottle) 100 ml IVPUSH ONETIME STA Stop: 12/07/20 09:47 Last Admin: 12/07/20 10:40 Dose: 100 ml Documented by: Ketorolac Tromethamine (Ketorolac 30 Mg/Ml Sdv) 30 mg IVPUSH ONETIME ONE Stop: 12/06/20 16:54 Last Admin: 12/06/20 17:25 Dose: 30 mg Documented by: Ketorolac Tromethamine (Ketorolac 30 Mg/Ml Sdv) Confirm Administered Dose 30 mg .ROUTE .STK-MED ONE Stop: 12/06/20 17:16 Last Admin: 12/06/20 18:19 Dose: Not Given Documented by: Pantoprazole Sodium (Pantoprazole 40 Mg Vial) 40 mg IVPUSH ONETIME ONE Stop: 12/06/20 11:30 Last Admin: 12/06/20 11:37 Dose: 40 mg Documented by: Pantoprazole Sodium (Pantoprazole 40 Mg Vial) 40 mg IVPUSH Q12H [facility] Last Admin: 12/09/20 11:37 Dose: 40 mg Documented by: Potassium Chloride (Potassium Chloride 20 Meq Tab.Er) 20 meq PO ONETIME ONE Stop: 12/06/20 18:04 Last Admin: 12/06/20 18:24 Dose: 20 meq Documented by: Potassium Chloride (Potassium Chloride 10 Meq Tab.Er) 20 meq PO Q3H [facility] Stop: 12/09/20 18:31 Last Admin: 12/09/20 18:07 Dose: 20 meq Documented by: Potassium Phos/Sodium Phos (Potassium Phosphate,Mb-Db/Sodium Phosphate,Mb-Db Packet) 1 each PO QID RAMIRO Potassium Phos/Sodium Phos (Potassium Phosphate,Mb-Db/Sodium Phosphate,Mb-Db Packet) 1 each PO QID [facility] Last Admin: 12/09/20 11:32 Dose: 1 each Documented by: Temazepam (Temazepam 15 Mg Cap) 15 mg PO DAILY@2000 PRN PRN Reason: Insomnia - Exam General: Reports: Alert, Oriented, Cooperative, Sedated HEENT: Reports: Pupils Equal, Pupils Reactive, EOMI, Mucous Membr. Moist/[place] Neck: Reports: Supple Lungs: Reports: Clear to Auscultation, Normal Respiratory Effort Cardiovascular: Reports: Regular Rhythm GI/Abdominal Exam: Normal Bowel Sounds, Soft, Non-Tender (Male) Exam: Deferred Rectal (Males) Exam: Deferred Back Exam: Denies: CVA Tenderness (L), CVA Tenderness (R) Extremities: Normal Range of Motion, Normal Capillary Refill Skin: Reports: Warm, Dry Neurological: Reports: No New Focal Deficit Psy/Mental Status: Reports: Alert, Normal Affect, Normal Mood
== END 2020-12-10 12:58 | disposition home or self-care (01) | DRG 420 ==
LOC: LL.ED 10:13 → LL.MS 12:19
PROVIDERS: ADMIT Family Medicine; ATTEND Family Medicine
DX: E10.10 Type 1 diabetes mellitus with ketoacidosis without coma (principal); E87.6 Hypokalemia; E86.0 Dehydration; K85.90 Acute pancreatitis without necrosis or infection, unspecified; K21.9 Gastro-esophageal reflux disease without esophagitis; E87.1 Hypo-osmolality and hyponatremia; R74.8 Abnormal levels of other serum enzymes; E83.39 Other disorders of phosphorus metabolism; E79.0 Hyperuricemia without signs of inflammatory arthritis and tophaceous disease; F41.9 Anxiety disorder, unspecified; F32.9 Major depressive disorder, single episode, unspecified; R94.31 Abnormal electrocardiogram [ECG] [EKG]; Z98.890 Other specified postprocedural states; Z20.822 Contact with and (suspected) exposure to COVID-19; Z91.19 Patient's noncompliance with other medical treatment and regimen
CPT/HCPCS: 36415; 71046; 74022; 74177; 80048; 80053; 80305-QW; 80307; 81001; 82009; 82150; 82272; 82550; 82553; 82947; 83036; 83605; 83690; 83735; 83880; 84100; 84443; 84484; 84550; 85025; 85379; 85610; 85730; 87040; 87081; 87086; 87430; 87804; 93005; 93010; 96374; 96375; 99223; 99232; 99233; 99238; 99285-25; A9270-GY; C9113; J0696; J1815-GY; J1885; J2405; J3360; J3480; J3490; J7120; J7121; Q9967; U0002

== ENCOUNTER 2021-05-24 11:59 | Emergency (ER) | payer BC ==
[2021-05-24 12:05] VITALS: BP 161/93; PULSE 88
[2021-05-24] MEDS ORDERED: Ketorolac 30 MG/ML SDV IM ONE (12:22)
[2021-05-24] MEDS ORDERED: Diazepam 5 MG Tab PO ONE (12:22)
--- NOTE | 2021-05-24 12:28 | EDM.PDOC ---
ED HPI GENERAL MEDICAL PROBLEM - General Chief Complaint: Upper Extremity Injury/Pain Stated Complaint: leeft shoulder pain Time Seen by Provider: 05/24/21 12:21 Source of Information: Reports: Patient History Limitations: Reports: No Limitations - History of Present Illness INITIAL COMMENTS - FREE TEXT/NARRATIVE: Sudden sharp pain left shoulder while at work. Was not really doing anything in particular. Just moved his arm a bit and felt snap/pain in left shoulder area. Cannot move shoulder without extreme pain now. No numbness/tingling distally. Did fall a week ago due to hypoglycemia and has felt some mild discomfort in left shoulder since that incident. Was still able to use the arm at work. No other acute complaints. Does have stitches in scalp from last week's fall that need removed today. left shoulder Pain Score (Numeric/FACES): 10 - Related Data Allergies Allergy/AdvReac Type Severity Reaction Status Date / Time No Known Allergies Allergy Verified 05/24/21 12:00 Home Meds: Home Meds Insulin Aspart [NovoLOG] See Protocol SUBCUT TID #1 pen 12/10/20 [Rx] Insulin Glargine,Hum.Rec.Anlog [Basaglar Kwikpen U-100] 20 unit SQ DAILY #1 box 12/10/20 [Rx] Cyclobenzaprine [Flexeril] 10 mg PO TID PRN #15 tab 05/24/21 [Rx] traMADol [Ultram] 50 mg PO Q6H PRN #20 tab 05/24/21 [Rx] Past Medical History HEENT History: Reports: Other (See Below) Other HEENT History: No diabetic retinopathy. Cardiovascular History: Reports: Other (See Below) Other Cardiovascular History: The patient does not know his cholesterol status. Respiratory History: Reports: Bronchitis, Recurrent, Other (See Below) Other Respiratory History: Possible history of RSV infection with respiratory distress/apnea at about age 1. Gastrointestinal History: Reports: Fatty Liver, Gastritis, GERD, Other (See Below) Other Gastrointestinal History: History of borderline GERD by medical records, which patient denies. Genitourinary History: Reports: None Musculoskeletal History: Reports: Fracture, Other (See Below) Other Musculoskeletal History: Proximal fracture of the distal phalanx of digit #2 of the left hand on 01/09/2017. 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 Oncologic (Cancer) History: Reports: None Dermatologic History: Reports: None - Infectious Disease History Infectious Disease History: Reports: Chicken Pox, RSV - Past Surgical History Head Surgeries/Procedures: Reports: None HEENT Surgical History: Reports: Oral Surgery, Other (See Below) Other HEENT Surgeries/Procedures: [place] teeth extraction x4 in his 20s. Cardiovascular Surgical History: Reports: None Respiratory Surgical History: Reports: None GI Surgical History: Reports: Hernia Repair/Other, Other (See Below) Other GI Surgeries/Procedures: Umbilical hernia repair on 01/30/2011. Male Surgical History: Reports: Circumcision, Other (See Below) Other Male Surgeries/Procedures: Circumcision as an . Endocrine Surgical History: Reports: None Neurological Surgical History: Reports: None Musculoskeletal Surgical History: Reports: None Oncologic Surgical History: Reports: None Dermatological Surgical History: Reports: None - Past Imaging History Past Imaging History: Reports: CAT Scan (Abdomen and pelvis 03/09/2018.), MRI (Left thigh on 10/10/2019.), Ultrasound (Abdomen 11/09/17.), Upper GI X-Ray/Series Social & Family History - Family History Family Medical History: No Pertinent Family History HEENT: Reports: None Cardiac: Reports: Arrhythmia, Heart Murmur, Other (See Below) Other Cardiac Family History: Maternal grandmother with heart valve replacement. Father with unknown type of arrhythmia. Respiratory: Reports: Sleep Apnea, Other (See Below) Other Respiratory Family Hisory: Father with sleep apnea secondary to obesity. GI: Reports: None : Reports: None OBGYN: Reports: None Musculoskeletal: Reports: None Neurological: Reports: None Psychiatric: Reports: None Endocrine/Metabolic: Reports: Diabetes, type II, Obesity/MBI 30+, Other (See Below) Other Endocrine/Metabolic Family History: Father with AODM and obesity. Paternal grandmother with AODM. Hematologic: Reports: None Immunologic: Reports: None Dermatologic: Reports: None Oncologic: Reports: Other (See Below) Other Oncologic Family History: Maternal grandparents with unknown type of fatal cancer in their 80s. - Caffeine Use Caffeine Use: Reports: None Other Caffeine Use: 1-2 daily Review of Systems - Review of Systems Review Of Systems: Comprehensive ROS is negative, except as noted in HPI. ED EXAM, GENERAL - Physical Exam Exam: See Below Exam Limited By: Other (Left shoulder pain) General Appearance: Alert, WD/WN, Moderate Distress Eye Exam: Bilateral Eye: EOMI, PERRL Ears: Hearing Grossly Normal Nose: No: Nasal Deformity, Nasal Swelling, Nasal Drainage Throat/Mouth: Normal Voice, No Airway Compromise Head: Atraumatic, Normocephalic Neck: Supple Respiratory/Chest: No Respiratory Distress Cardiovascular: Regular Rate, Rhythm Back Exam: Other (Tender with palpation above left scapula) Extremities: Normal Capillary Refill, Other (Tender anterior/posterior shoulder. Unable to perform ROM due to pain. 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 NVI. No deformity. ) Neurological: Alert, Oriented, Normal Cognition, Normal Gait Psychiatric: Normal Affect, Normal Mood Skin Exam: Warm, Dry, Intact, Normal Color Course - Vital Signs Last Recorded V/S: Last Vital Signs Temp 36.7 C 05/24/21 12:01 Pulse 88 05/24/21 12:01 Resp 18 05/24/21 12:01 BP 161/93 H 05/24/21 12:01 Pulse Ox 100 05/24/21 12:01 - Orders/Labs/Meds Orders: Active Orders 24 hr Category Date Time Status Shoulder Comp Lt [CR] Stat Exams 05/24/21 12:07 Taken Shoulder Comp Lt [CR] Stat Exams 05/24/21 13:51 Taken DME for Discharge [COMM] Stat Oth 05/24/21 15:00 Ordered Meds: Medications Discontinued Medications Generic Name Dose Route Start Last Admin Trade Name Bharat PRN Reason Stop Dose Admin Diazepam 2.5 mg 05/24/21 12:22 05/24/21 13:00 Diazepam 5 Mg Tab PO 05/24/21 12:23 2.5 mg ONETIME ONE Administration Ketorolac Tromethamine 30 mg 05/24/21 12:22 05/24/21 13:00 Ketorolac 30 Mg/Ml Sdv IM 05/24/21 12:23 30 mg ONETIME ONE Administration - Re-Assessments/Exams Free Text/Narrative Re-Assessment/Exam: 05/24/21 12:27 Xrays requested of left shoulder. No obvious deformity suggestive of dislocati on. IM Toradol and PO Valium ordered. 05/24/21 14:56 Xrays suggested humeral head slightly inferior to fossa. Patient said that shoulder "moved" and seemed to slip back into a better position when he was on way back from Xray. A new set of films was obtained and it showed better positioning of humeral head. Suspect patient may have had rotator cuff injury when he passed out due to hypoglycemia a week ago which led to movement/laxity of the shoulder joint today. Patient feels better. Will be placed in a shoulder immobilizer and is instructed to follow up Thursday at Ortho walk in clinic at [facility] for recheck and further evaluation/imaging as needed such as MRI. 05/24/21 18:05 Radiology reviewed xrays and notes no obvious dislocation on either set of films Departure - Departure Time of Disposition: 14:48 Disposition: Home, Self-Care 01 Condition: Good Clinical Impression: Injury of left shoulder Qualifiers: Encounter type: initial encounter Qualified Code(s): S49.92XA - Unspecified injury of left shoulder and upper arm, initial encounter - Discharge Information *PRESCRIPTION DRUG MONITORING PROGRAM REVIEWED*: Not Applicable *COPY OF PRESCRIPTION DRUG MONITORING REPORT IN PATIENT FERNANDO: Not Applicable Prescriptions: Cyclobenzaprine [Flexeril] 10 mg PO TID PRN #15 tab PRN Reason: Spasms traMADol [Ultram] 50 mg PO Q6H PRN #20 tab PRN Reason: Pain Referrals: Shani Yi NP [Primary Care Provider] - Forms: ED Department Discharge Additional Instructions: Wear shoulder immobilizer religiously until you see ortho at [facility] walk in clinic in [place] Thursday. OK to take Ibuprofen and/or Tylenol for pain. Take the Tramadol if pain is more severe. Ice shoulder every few hours to help with pain. Further imaging/instructions/work restrictions per Ortho. Follow up otherwise as needed if you have any problems. Sepsis Event Note (ED) - Evaluation Sepsis Screening Result: No Definite Risk - Focused Exam Vital Signs: Vital Signs Temp Pulse Resp BP Pulse Ox 05/24/21 12:01 36.7 C 88 18 161/93 H 100 - My Orders Last 24 Hours: My Active Orders 05/24/21 12:07 Shoulder Comp Lt [CR] Stat 05/24/21 13:51 Shoulder Comp Lt [CR] Stat 05/24/21 15:00 DME for Discharge [COMM] Stat - Assessment/Plan Last 24 Hours: My Active Orders 05/24/21 12:07 Shoulder Comp Lt [CR] Stat 05/24/21 13:51 Shoulder Comp Lt [CR] Stat 05/24/21 15:00 DME for Discharge [COMM] Stat
== END 2021-05-24 15:35 | disposition home or self-care (01) ==
LOC: LL.ED 11:59
DX: S49.92XA Unspecified injury of left shoulder and upper arm, initial encounter (principal); E10.9 Type 1 diabetes mellitus without complications; W19.XXXA Unspecified fall, initial encounter
CPT/HCPCS: 73030-LT; 96372; 99283; 99283-25; A9270-GY; J1885